=== PATIENT | male | born 1980 | race African-American/Black ===

== ENCOUNTER 2024-04-05 14:12 | Outpatient (AMB) | payer BC, SELFPAY ==
--- NOTE | 2024-04-05 14:23 | A.OFFPC_ITS ---
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 Is supposed to be on blood pressure medicine but he tries not to take it. 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 The patient has a history of essential hypertension, which was diagnosed previously and is currently managed with a combination of lisinopril, hydrochlorothiazide. Blood pressure readings are currently stable, with today?s reading at 126/86 mmHg. He states that he has had a workup for hypertension including renal ultrasounds. He states that this was done at [facility]. He is go ing to request records. He has chronic gastroesophageal reflux disease (GERD), which has persisted for approximately 10 years. The reflux had been symptomatic but recently improved by avoiding spicy and acidic foods. His GERD was associated with a previous Helicobacter pylori infection diagnosed this past summer, treated with a triple therapy regimen of antibiotics and proton pump inhibitors. Despite treatment, confirmation of eradication post-therapy was not obtained. He still experiences symptoms. Additionally, the patient reports a history of A hypopigmented, flat rash on his back, chest and arms particularly noted when sweating. He has not undergone recent dermatological treatment for this condition. 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 - Lives in a home environment and has mo cosme recently. - Diet includes efforts to avoid process ed and fast food; limited detailed discussion about nutritional intake. - No use of alcohol, tobacco, or illicit drugs was mentioned. - Reports attending dental appointments regularly. 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 - Gastrointestinal: Reports occasional b elching with movement improvement. - Musculoskeletal: Reports gas-associate d pain but no other issues. - Neurological: Denies headaches or othe r symptoms. Physical Exam General: Cooperative, healthy appearing, comfortable, no acute distress and well developed Orientation: Patient oriented x3 Limitations: No limitations Head: Normal to inspection Ears: Hearing grossly normal bilaterally Nose: Normal external nose present Face and sinus: Normal facial exam Eyes: Appearance normal, both eyes and all related structures Neck: Normal visual inspection and Yes full ROM Respiratory: Normal respiratory effort and able to speak in complete sentences. Clear to auscultation bilaterally Cardiovascular: Regular rate and rhythm. Normal S1 and S2 GI: Normal to inspection. Soft to palpation and nontender. Reports history of acid reflux and belching, no constipation or diarrhea. Skin: Flat, hyperpigmented lesion noted throughout the back, upper chest and upper arms. Neuro: Patient oriented x3 Extremities: Normal to inspection Results - Prior breath test positive for Helicob acter pylori (details not provided on eradication confirmation). Plan - Essential Hypertension: Continue [facility] antihypertensive regimen including lisinopril and hydrochlorothiazide. Order lab tests to assess kidney function and cholesterol levels. - Gastroesophageal Reflux Disease GERD): Refer to gastroenterology for further evaluation. Recommend obtaining a stool antigen test to confirm eradication of Helicobacter pylori. Continue dietary modifications to avoid triggers such as spicy and acidic foods. - Tinea Versicolor: Prescribe ketoconazo le shampoo to be used topically for the management of skin discoloration. Consider dermatology consult if not responsive to initial treatment. Patient was informed and verbally consented to the use of an ambient scribe for clinic note documentation during this visit. Discussion Notes I discussed the current management plan with the patient. For hypertension, I emphasized the importance of ongoing medication adherence and monitoring blood pressure. We discussed the potential need for a renal ultrasound to rule out secondary causes. Regarding GERD and the previous Helicobacter pylori treatment, I explained the significance of confirming eradication and referred him to a GI specialist for further evaluation. We discussed options for managing tinea versicolor, including the use of ketoconazole shampoo, and I provided education on proper application. I advised the patient to follow up with dermatology if the condition persists. Patient Instructions - Continue taking prescribed blood press ure medication as directed. - Adhere to dietary modifications to man age GERD symptoms. - Use ketoconazole shampoo as instructed for tinea versicolor. - Attend lab work at convenience for com prehensive evaluation. - Follow up with gastroenterology and de rmatology as scheduled. - Maintain regular appointments for cont inued monitoring and management. - Contact the office for any new symptom s or concerns prior to the next scheduled visit. [facility] Surgical History (Updated 04/05/24 @ 14:29 by Mindy Colorado CMA) No pertinent past surgical history Social History (Updated 04/05/24 @ 14:30 by Mindy Colorado CMA) Housing: House Alcohol intake: former Patient Tobacco Use Status: Former Tobacco user Years Smoked: unknown. 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 1. Little interest or pleasure in doing things: several days 2. Feeling down, depressed, or hopeless: not at all 3. Trouble falling or staying asleep, or sleeping too much: not at all 4. Feeling tired or having little energy: not at all 5. Poor appetite or overeating: not at all 6. Feeling bad about yourself - or that you are a failure or have let yourself or your family down: not at all 7. Trouble concentrating on things, such as reading the newspaper or watching television: not at all 8. Moving or speaking so slowly that other people could have noticed. Or the opposite - being so fidgety or restless that you have been moving around a lot more than usual: not at all 9. Thoughts that you would be better off or of hurting yourself in some way: not at all Total score: 1 Depression Screening Interpretation: Negative Depression Screening Done: Yes 13186 - PHQ-9 Billing: Yes Source: Developed by Drs. Homar Arevalo, Rosa M Celaya, Kris Contreras and colleagues, with an educational homar from [employer]. Thrive Questionnaire Date Thrive assessed: 04/05/24 I am a: Patient What is your living situation today?: I choose not to answer this question Within the past 12 months, did the food you bought not last and you didn't have the money to get more?: I choose not to answer this question Within the past 12 months, did you worry whether your food would run out before you got money to buy more?: I choose not to answer this question Do you have trouble paying for medicines?: No Do you have trouble getting transportation to medical appointments?: No Do you have trouble paying your heating and electricity bill?: No Do you have trouble taking care of your child, family member or friend?: No Do you have trouble with day-to-day activities such as bathing, preparing meals, shopping, managing finances, etc.?: No Are you currently unemployed and looking for a job?: No Are you interested in more education?: No Please select the resources that you would like help with: None Currently or been in a relationship where the following occur: I choose not to answer THRIVE Score: 0 AUDIT C Alcohol Use Questionnaire (AUDIT-C) 1. How often do you have a drink containing alcohol?: Never Total Score: 0 ALAINA-7 AMB Questionnaire ALAINA-7 Date ALAINA - 7 assessed: 04/05/24 Feeling nervous, anxious, or on edge: 0 = Not at all Not being able to stop or control worryin = Not at all Worrying too much about different things: 0 = Not at all Trouble relaxin = Not at all Being so restless that it is hard to sit still: 0 = Not at all Becoming easily annoyed or irritable: 0 = Not at all Feeling afraid as if something awful might happen: 0 = Not at all Total ALAINA-7 score (0-4 normal; 5-9 mild; 10-14 moderate; 15-21 severe): 0 Source: Developed by Drs. Homar Arevalo, Rosa M Celaya, Kris Contreras and colleagues, with an educational homar from [employer]. ALAINA-7 Assessment Billing ALAINA-7 Assessment Tool: ALAINA-7 Assessment 20954 Physical exam (Primary Care) Vital Signs: Last Vital Signs Pulse 80 04/05/24 14:30 BP 126/86 04/05/24 14:30 Pulse Ox 99 04/05/24 14:30 Oxygen Delivery Method Room Air 12/04/24 14:30 BMI result Body Mass Index 25.9 Tobacco/Smoking Status: Tobacco use Status Tobacco use date assessed 04/05/24 04/05/24 14:32 Patient Tobacco Use Status Former Tobacco user 04/05/24 14:32 e-Cigarette/Vaping Use Never Used 04/05/24 14:32 PHQ-9: PHQ-9 Score PHQ-9: Total score 1 04/05/24 14:47 Depression Screening Interpretation: Negative Thrive Assessment: Date of Thrive Assessment Date Thrive assessed 04/05/24 04/05/24 14:32 Currently or been in a relationship where the following occur: I choose not to answer Coding Level of Care Code New Pt Level 4 (72557) Complex EM visit Add On G2211 Diagnoses HTN (hypertension) I10 GERD (gastroesophageal reflux disease) K21.9 Tinea versicolor B36.0 Additional Codes ALAINA-7 Assessment Billing - ALAINA-7 Assessment Tool: ALAINA-7 Assessment 12317 ([id number]) PHQ-9 - 18435 - PHQ-9 Billing: Yes ([id number]) Assessment & Plan Assessment & Plan (1) HTN (hypertension): Code(s): I10 - Essential (primary) hypertension Category: Medical (2) GERD (gastroesophageal reflux disease): Code(s): K21.9 - Gastro-esophageal reflux disease without esophagitis Category: Medical (3) Tinea versicolor: Code(s): B36.0 - Pityriasis versicolor Category: Medical Plan . Orders: Orders Complete Blood Count Auto Diff Today I10 - Essential (primary) hypertension TSH reflex Free T4 Today I10 - Essential (primary) hypertension Lipid Panel Today I10 - Essential (primary) hypertension Comprehensive [place]. Panel Fast Today I10 - Essential (primary) hypertension UA CC w/rflx Micro + Cult Today I10 - Essential (primary) hypertension, Z13.220 - Encounter for screening for lipoid disorders H pylori Ag Stool Today K21.9 - Gastro-esophageal reflux disease without esophagitis Referrals Dermatology Referral B36.0 - Pityriasis versicolor Gastroenterology Referral A04.8 - Other specified bacterial intestinal infections, K21.9 - Gastro-esophageal reflux disease without esophagitis Medications: New ketoconazole 1% lather on for 5 minutes then rinse 1 appl topical Q3D 200 mL 3RF lisinopril-hydrochlorothiazide 10-12.5 mg 1 tab PO DAILY 90 tabs 3RF
[2024-04-05 14:30] VITALS: BP 126/86; PULSE 80; O2SAT 99; BMI 25.9
== END 2024-04-05 15:02 | disposition home or self-care (01) ==
PROVIDERS: PCP Physician Assistant; Visit Provider Physician Assistant
DX: I10 Essential (primary) hypertension (principal); K21.9 Gastro-esophageal reflux disease without esophagitis; B36.0 Pityriasis versicolor

== ENCOUNTER → 2024-04-05 14:12 | Outpatient (BNVA) | payer BC, SELFPAY | PROVIDERS: Visit Provider Physician Assistant | DX: I10 Essential (primary) hypertension (principal); K21.9 Gastro-esophageal reflux disease without esophagitis; B36.0 Pityriasis versicolor; Z79.899 Other long term (current) drug therapy | CPT/HCPCS: 96127 ==

== ENCOUNTER 2024-04-28 13:29 | Outpatient (REF) | payer BC, SELFPAY ==
[2024-04-28 17:31] LABS: MANUAL DIFF FLAG NO
[2024-04-28 17:37] LABS: Basophils Absolute Auto 0.1 X10*3/uL (0.0-0.2); Basophils Percent Auto 0.7 % (0-2); Eosinophils Absolute Auto 0.1 X10*3/uL (0.0-0.4); Eosinophils Percent Auto 1.3 % (0-4); Hematocrit 44.4 % (42.0-52.0); Hemoglobin 14.6 g/dl (14.0-18.0); Imm Gran Abs Auto 0.06 X10*3/uL (0.00-0.03); Imm Gran Pct Auto 0.9 % (0.0-0.4); Lymphocytes Percent Auto 30.2 % (20-40); Mean Corpuscular HGB Conc 32.9 g/dl (31.0-36.0); Mean Corpuscular Hemoglobin 32.2 pg (27.0-33.0); Mean Corpuscular Volume 97.8 fL (80.0-98.0); Mean Platelet Volume 10.4 fL (9.4-12.4); Monocytes Absolute Auto 0.6 X10*3/uL (0.1-1.2); Monocytes Percent Auto 8.4 % (2-11); Neutrophils Absolute Auto 3.9 x10*3/uL (2.0-8.3); Neutrophils Percent Auto 58.5 % (45-73); Platelet Count 227 X10*3/uL (160-400); Red Blood Count 4.54 X10*6/uL (4.60-5.80); Red Cell Distribution Width 12.1 % (11.0-16.0); White Blood Count 6.7 X10*3/uL (4.8-10.8)
[2024-04-28 18:00] LABS: Appearance Urine Turbid; Color Urine Yellow; Glucose Urine UA Negative (Negative); Leukocyte Esterase Urine Negative (Negative); Nitrite Urine Negative (Negative); UMIC TRIGGER UACC YES; Urine Blood Trace (Negative); Urine Ketones Negative (Negative); Urine Protein Negative (Neg-Trace)
[2024-04-28 18:03] LABS: Bacteria Urine None Seen (None Seen); Hyaline Casts Urine 0-2 /LPF (0-2); RBC Urine 0-2 /HPF (0-2); Squamous Epithelial Cell Urine 0-2 /HPF (0-2); WBC Urine 0-5 /HPF (0-5)
[2024-04-28 18:06] LABS: Alanine Aminotransferase 45 U/L (0-40); Albumin Level 4.2 g/dL (3.5-5.0); Alkaline Phosphatase 62 U/L (39-117); Anion Gap 13 (12-20); Aspartate Amino Transferase 45 U/L (5-37); Bilirubin Total 0.9 mg/dL (0.0-1.0); Blood Urea Nitrogen 13 mg/dL (9-16); Calcium 9.3 mg/dL (8.4-10.2); Carbon Dioxide 27 mmol/L (22-29); Chloride 106 mmol/L (96-108); Cholesterol 211 mg/dL (<200); Estimated Glomerular Filt Rate > 60; Glucose Fasting 99 mg/dL (60-99); HDL Cholesterol 42 mg/dL (>40); LDL Cholesterol Calculated 150 mg/dL (<100); Potassium 4.1 mmol/L (3.3-5.1); Sodium 142 mmol/L (135-145); Total Protein 7.3 g/dL (6.5-8.0); Triglycerides 95 mg/dL (<150)
[2024-04-28 18:26] LABS: TSH reflex Free T4 1.49 uIU/mL (0.32-4.0)
== END 2024-04-28 13:30 | disposition home or self-care (01) ==
LOC: HO.WFDLDS 13:29
PROVIDERS: Visit Provider Physician Assistant
DX: I10 Essential (primary) hypertension (principal)
CPT/HCPCS: 36415; 80053; 80061; 81001; 84443; 85025

== ENCOUNTER 2024-05-01 15:01 | Outpatient (REF) | payer BC, SELFPAY | END 2024-05-01 15:02 | disposition home or self-care (01) | LOC: HO.LNP 15:01 | PROVIDERS: Visit Provider Physician Assistant | DX: K21.9 Gastro-esophageal reflux disease without esophagitis (principal) | CPT/HCPCS: 87338 ==

== ENCOUNTER 2024-05-31 10:41 | Outpatient (REF) | payer BC, SELFPAY ==
[2024-05-31 14:40] LABS: Appearance Urine Clear; Color Urine Yellow; Glucose Urine UA Negative (Negative); Leukocyte Esterase Urine Negative (Negative); Nitrite Urine Negative (Negative); Urine Blood Negative (Negative); Urine Ketones Negative (Negative); Urine Protein Negative (Neg-Trace)
== END 2024-05-31 10:42 | disposition home or self-care (01) ==
LOC: HO.WFDLDS 10:41
PROVIDERS: Visit Provider Physician Assistant
DX: Z13.220 Encounter for screening for lipoid disorders (principal); I10 Essential (primary) hypertension
CPT/HCPCS: 81003

== ENCOUNTER → 2024-06-07 10:36 | Outpatient (BNVA) | payer BC, SELFPAY | PROVIDERS: PCP Physician Assistant; Visit Provider Physician Assistant | DX: I10 Essential (primary) hypertension (principal); K21.9 Gastro-esophageal reflux disease without esophagitis; R79.89 Other specified abnormal findings of blood chemistry; R07.89 Other chest pain; R13.10 Dysphagia, unspecified; R94.31 Abnormal electrocardiogram [ECG] [EKG]; Z79.899 Other long term (current) drug therapy | CPT/HCPCS: 93005; 96127 ==

== ENCOUNTER 2024-06-07 12:33 | Outpatient (REF) | payer BC, SELFPAY ==
--- OUTSIDE RECORDS SUMMARY | 2024-06-07 13:57 | XMS_ITS | Clinical Summary ---
Author Organization [facility] Address [address] [place] [address] Care Team Providers Care Core Analyst Name Role Phone Unavailable Primary Care Provider Unavailabl e Social History Tobacco Use Types Packs/Day Years Used Date Smoking Tobacco: Former Smokeless Tobacco: Never Alcohol Use Standard Drinks/Week Comments Yes 0 (1 standard drink = 0.6 oz pur e alcohol) Sex and Gender Information Value Date Recorded Sex Assigned at Not on file Gender Identity Not on file Sexual Orientation Not on file Obstetrics History Last Filed Vital Signs Vital Sign Reading Time Taken Comments Blood Pressure 154/94 09/02/2021 3:25 PM EDT Pulse 71 09/02/2021 3:25 PM EDT Temperature - - Respiratory Rate - - Oxygen Saturation - - Inhaled Oxygen Concentration - - Weight 77.3 kg (170 lb 6.4 oz) 09/02/2021 3:25 P M EDT Height 165.1 cm (5' 5 ) 09/02/2021 3:25 PM EDT Body Mass Index 28.36 09/02/2021 3:25 PM EDT Plan of Treatment Health Maintenance Due Date Last Done Comments DTaP,Tdap,and Td Vaccines (1 - Tdap) 2001 Hepatitis B Vaccines (1 of 3 - 19+ 3-dose series) 2001 Cholesterol Screening (Lipid Panel) 04/05/2022 Depression Screening 04/05/2022 HIV Screening 04/05/2022 Hepatitis C Screening 04/05/2022 Social Influencers of Health Screening 04/05/2022 COVID-19 Vaccine ( - 2023-2 5 season) 2024 Influenza Vaccine (#1) 2024 HIB Vaccines Aged Out No longer eligi ble based on patient's age to complete this topic HPV Vaccines Aged Out No longer eligi ble based on patient's age to complete this topic Hepatitis A Vaccines Aged Out No long er eligible based on patient's age to complete this topic IPV Vaccines Aged Out No longer eligi ble based on patient's age to complete this topic MMR Vaccines Aged Out No longer eligi ble based on patient's age to complete this topic Meningococcal ACWY Vaccine Aged Out N o longer eligible based on patient's age to complete this topic Pneumococcal Vaccine: Pediat rics (0 to 5 Years) and At-Risk Patients (6 to 64 Years) Aged Out No longer eligible b ased on patient's age to complete this topic RSV Immunization Patients Un devi 20 months Aged Out No longer eligible b ased on patient's age to complete this topic Varicella Vaccines Aged Out No longer eligible based on patient's age to complete this topic
--- OUTSIDE RECORDS SUMMARY | 2024-06-07 13:57 | XMS_ITS | Clinical Summary ---
Author Organization [facility] Address [address] [place] [address] Care Team Providers Care Employment Security Officer Name Role Phone Ben Grant MD Primary Care Provider [phone] Source Comments PLEASE NOTE, if this patient is a minor, it may be UNLAWFUL to discuss sensitive information that is contained in these records (such as FAMILY PLANNING, MENTAL HEALTH or SUBSTANCE ABUSE) with the minor patient's parent or other person without the patient's specific authorization.[facility] Allergies No known active allergies Medications miscellaneous medical supply miscIndications: Lumbar pain by miscellaneous route once daily Back brace to be worn daily x99 years 1 Each 05/27/19 22 Active naproxen (NAPROSYN) 500 mg tabletIndication s:Lumbar pain Take 1 Tablet by mouth 2 (two) times daily with a meal 30 Tablet 1 05/27/19 22 Active lidocaine (LIDODERM) 5 % patchIndications :Chronic midline low back pain without sciatica Place 1 Patch onto the skin once daily (every 24 hours) Apply 1 patch to the affected area for a maximum of 12 hours, followed by removal for 12 hours. 90 Patch 1 05/06/19 24 Active atorvastatin (LIPITOR) 40 mg tabletIndication s:Elevated low density lipoprotein (LDL) cholesterol level Take 1 Tablet by mouth nightly at bedtime 90 Tablet 1 11/16/19 24 Active benzonatate (TESSALON) 200 mg capsuleIndicatio ns:Other cough Take 1 Capsule by mouth 3 (three) times daily as needed for cough 60 Capsule 1 11/26/19 24 Active lisinopriL-hydro chlorothiazide 10-12.5 mg per tabletIndication s:Primary hypertension Take 1 Tablet by mouth once daily 90 Tablet 1 12/20/19 24 Active omeprazole (PRILOSEC) [address] capsuleIndicatio ns:Gastroesophag eal reflux disease without esophagitis TAKE 1 CAPSULE BY MOUTH ONCE DAILY IN THE MORNING BEFORE BREAKFAST 90 Capsule 02/09/20 24 Active Active Problems Problem Noted Date Diagnosed Date Chronic midline low back pain without sciatica 0 11/15/2023 Overview (11/15/2023): Sees Ortho Positive H. pylori test 08/17/2023 Overview (08/17/2023): Treated with Omeprazole,Amoxicillin and Metronidazole for 14 day on 08/17/2023 Primary hypertension 01/25/2023 Elevated low density lipoprotein (LDL) cholester ol level 11/01/2018 Gastroesophageal reflux disease without esophagi tis 08/18/2017 Immunizations Name Administration Dates Next Due PPD 08/18/2017 Family History Medical History Relation Name Comments Hypertension Mother Relation Name Status Comments Father Alive Mother Alive Social History Tobacco Use Types Packs/Day Years Used Date Smoking Tobacco: Former Cigarettes Passive Smoke Exposure: Never Smokeless Tobacco: Never Tobacco Cessation:Counseling Given: Yes Alcohol Use Standard Drinks/Week Comments Yes 0 (1 standard drink = 0.6 oz pur e alcohol) soically Social Connections Answer Date Recorded Connectedness 0 01/29/2021 Financial Resource Strain Answer Date R ecorded Financial Resource Strain 0 2020 Stress Answer Date Recorded Stress 0 01/29/2021 Physical Activity Answer Date Recorded Physical Activity 0 12/25/2018 Food Insecurity Answer Date Recorded Food 0 01/29/2021 Transportation Needs Answer Date Record ed Transportation 0 01/29/2021 Housing Stability Answer Date Recorded Housing 0 01/29/2021 Safety and Environment Answer Date Teodoro rded Safety 0 01/29/2021 Utilities Answer Date Recorded Utilities 0 01/29/2021 Employment Answer Date Recorded Employment 0 12/25/2018 Sex and Gender Information Value Date Recorded Sex Assigned at Male 08/18/2017 10:00 AM PDT Legal Sex Male 11:08 AM PST Gender Identity Male 08/18/2017 10:00 AM PDT Sexual Orientation Straight 08/18/2017 10 :00 AM PDT Last Filed Vital Signs Vital Sign Reading Time Taken Comments Blood Pressure 116/78 11/26/2023 10:55 AM EDT Pulse 78 11/26/2023 10:55 AM EDT Temperature 36.8 ??C (98.3 ??F) 11/26/2023 10:55 AM E DT Respiratory Rate 16 11/26/2023 10:55 AM EDT Oxygen Saturation 97% 11/26/2023 10:55 AM EDT Inhaled Oxygen Concentration - - Weight 75.8 kg (167 lb) 11/26/2023 10:55 AM EDT Height 170.2 cm (5' 7 ) 11/26/2023 10:55 AM EDT Body Mass Index 26.16 11/26/2023 10:55 AM EDT Plan of Treatment Health Maintenance Due Date Last Done Comments Imm-Hepatitis B (1 of 3 - 19 + 3-dose series) 2001 [id number] () 01/02/2024 Imm-Influenza (#1) 2024 Alcohol and Drug Screen 05/03/2024 05/06/19 24, 12/14/2022, 05/23/2021, Additional history exists Depression Annual Screen 05/03/2024 05/06/2023, 08/01 Lipid Screening 11/14/2024 11/15/2023, 08/01, 05/06/2023, Additional history exists Annual Preventive Care Visit 11/25/2024, 02/25/2022, 01/29/2021, Additional history exists Tobacco Screening 11/25/2024 11/26/2023 Diabetes Screening 11/25/2026 11/26/2023, 0 11/26/2023, 01/29/2021, Additional history exists HIV Screening Completed 11/18/2017 Hepatitis C Screening Completed 01/29/2021 Imm-DTaP/Tdap/Td Discontinued Procedures Procedure Name Priority Date/Time Associated Diagnosis Comments COMPREHENSIVE METABOLIC PANEL Routine 11/26/2023 11:19 AM EDT Routine general medical examination at a health care facility Elevated low density lipoprotein (LDL) cholesterol level Gastroesophageal reflux disease without esophagitis LIPIDS W RFLX TO DIRECT LDL Routine 11/15/2023 10:25 AM EDT Elevated low density lipoprotein (LDL) cholesterol level HEPATITIS C AB W/RFLX HCV RNA, QT, RT PCR Routine 01/29/2021 9:21 AM EDT Health care maintenance ANTIBODY HIV-1&HIV-2 SINGLE RESULT Routine 11/18/2017 1:41 PM EDT Health care maintenance from Last 3 Months or Most Recently Relevant to Health Maintenance Results * COMPREHENSIVE METABOLIC PANEL (11/26/2023 11:19 AM EDT) GLUCOSE 92 65 - 99 mg/dL [facility] Comment: ?Fasting reference interval UREA NITROGEN (BUN) 12 7 - 25 mg/dL [facility] CREATININE (blood) 1.10 0.60 - 1.29 mg/dL [facility] EGFR 86 > OR = 60 mL/min/1. 73m2 [facility] BUN/CREATININE RATIO SEE NOTE: [facility] Comment: ?? Not Reported: BUN and Creatinine are within ?? reference range. ? SODIUM 139 135 - 146 mmol/L [employer] [facility] POTASSIUM 4.1 3.5 - 5.3 mmol/L [facility] CHLORIDE 103 98 - 110 mmol/L [facility] CARBON DIOXIDE 30 20 - 32 mmol/L [employer] [facility] CALCIUM 9.3 8.6 - 10.3 mg/dL [employer] [facility] PROTEIN, TOTAL 7.2 6.1 - 8.1 g/dL [employer] [facility] ALBUMIN 4.3 3.6 - 5.1 g/dL [facility] GLOBULIN 2.9 1.9 - 3.7 g/dL (calc) [employer] [facility] ALBUMIN/GLOBULI N RATIO 1.5 1.0 - 2.5 (calc) [facility] BILIRUBIN, TOTAL 1.1 0.2 - 1.2 mg/dL [facility] ALKALINE PHOSPHATASE 75 36 - 130 U/L [facility] AST 27 10 - 40 U/L [facility] ALT 34 9 - 46 U/L [facility] Blood Blood / Unknown 11/26/2023 1 1:19 AM EDT 11/26/2023 11:19 AM EDT Ben Grant MD LAB - BLOOD DRAW Edited Result - Final Performing Organization Address [facility]/ZIP Co de Phone Number [employer] [address] [address], [employer] [address] [address] * (ABNORMAL) LIPIDS W RFLX TO DIRECT LDL (11/15/2023 10:25 AM EDT) CHOLESTEROL, TOTAL 200(H) <200 mg/dL [employer] [facility] HDL CHOLESTEROL 46 > OR = 40 mg/dL [employer] [facility] TRIGLYCERIDES 76 <150 mg/dL [employer] [facility] LDL-CHOLESTEROL 137(H) 99 mg/dL (calc) [employer] [facility] Comment: Reference range: <100 Desirable range <100 mg/dL for primary prevention; ?? <70 mg/dL for patients with CHD or diabetic patients with > or = 2 CHD risk factors. LDL-C is now calculated using the David-Cassandra calculation, which is a validated novel method providing better accuracy than the Friedewald equation in the estimation of LDL-C. David SS et al. SIL. 2013;310(19): 9345-7771 (http://education.[employer]/faq/GYA271) CHOL/HDLC RATIO 4.3 <5.0 (calc) [employer] [facility] NON-HDL CHOLESTEROL 154(H) <130 mg/dL (calc) [employer] [facility] Comment: For patients with diabetes plus 1 major ASCVD risk factor, treating to a non-HDL-C goal of <100 mg/dL (LDL-C of <70 mg/dL) is considered a therapeutic option. Blood Blood / Unknown 11/15/2023 1 0:25 AM EDT 11/15/2023 10:28 AM EDT Narrative [employer] [facility] - 11/16/2023 4:26 AM EDT FASTING:YES us Ben Grant MD LAB - BLOOD DRAW Edited Result - Final Performing Organization Address City/[facility]/ZIP Co de Phone Number [employer] [address] [place] [address], [employer] [facility] [address] [place] [address] * HEPATITIS C AB W/RFLX HCV RNA, QT, RT PCR (01/29/2021 9:21 AM EDT) Pathologist [facility] HEPATITIS C ANTIBODY NON-REACT RADHA NON-REACT RADHA [facility] SIGNAL TO CUT-OFF 0.01 <1.00 [facility] Comment: HCV antibody was non-reactive. There is no laboratory evidence of HCV infection. In most cases, no further action is required. However, if recent HCV exposure is suspected, a test for HCV RNA (test code 17948) is suggested. For additional information please refer to http://education.[employer]/faq/POO89j9 (This link is being provided for informational/ educational purposes only.) Blood Blood / Unknown 01/29/2021 9 :21 AM EDT 01/29/2021 9:21 AM EDT Narrative [facility] - 01/30/2021 12:19 AM EDT FASTING:YES Ben Grant MD LAB - BLOOD DRAW Edited Result - Final [facility] [address] [address], [employer] [address] [place] [address],[place] [address] * HIV-1 & HIV-2 ANTIBODIES (11/18/2017 1:41 PM EDT) [facility] HIV 1 AND 2 ANTIBODY SCREEN NEGATIVE NEGATIVE [facility] Comment: This assay is a 4th generation assay allowing for earlier detection of HIV infection by detecting the presence of the HIV-1 p24 antigen as well as the traditional antibodies to HIV type 1 (including group O) and type 2. ??Use of a 4th generation assay is the current CDC recommendation for HIV screening. Blood specimen (specimen) Blood / Unknown 11/18/2017 1:41 PM EDT 11/18/2017 1:46 PM EDT N[facility]ative [facility] - 11/18/2017 10:[address] [facility] [address] [place] [address] PT ID [id number] ORD# [id number] us Ben Grant MD LAB - BLOOD DRAW Final Result [facility] [address] [place] [address], from Last 3 Months or Most Recently Relevant to Health Maintenance Insurance ADDI CORTEZ/LISA SAN Member Subscriber Plan / Payer (Ef fective 2019-Present) Name:Chintan Moralez Relation to Subscriber:Self Name:Chintan Moralez Payer ID:[id number] Type:Indemnity Address: [address] [address] Care Teams Employment Security Officer Relationship Specialty Start Date End Date Ben Grant MD [address] [place] [address] PCP - General Internal Medicine 07/21/17
[2024-06-07 13:58] LABS: MANUAL DIFF FLAG NO
[2024-06-07 14:05] LABS: Basophils Absolute Auto 0.1 X10*3/uL (0.0-0.2); Basophils Percent Auto 0.8 % (0-2); Eosinophils Absolute Auto 0.1 X10*3/uL (0.0-0.4); Eosinophils Percent Auto 1.7 % (0-4); Hematocrit 45.4 % (42.0-52.0); Imm Gran Abs Auto 0.05 X10*3/uL (0.00-0.03); Imm Gran Pct Auto 0.7 % (0.0-0.4); Lymphocytes Absolute Auto 1.8 X10*3/uL (1.2-4.9); Lymphocytes Percent Auto 25.6 % (20-40); Mean Corpuscular Hemoglobin 31.4 pg (27.0-33.0); Mean Corpuscular Volume 95.2 fL (80.0-98.0); Mean Platelet Volume 10.2 fL (9.4-12.4); Monocytes Absolute Auto 0.7 X10*3/uL (0.1-1.2); Monocytes Percent Auto 9.8 % (2-11); Neutrophils Absolute Auto 4.4 x10*3/uL (2.0-8.3); Neutrophils Percent Auto 61.4 % (45-73); Platelet Count 235 X10*3/uL (160-400); Red Blood Count 4.77 X10*6/uL (4.60-5.80); Red Cell Distribution Width 11.9 % (11.0-16.0); White Blood Count 7.1 X10*3/uL (4.8-10.8)
[2024-06-07 14:26] LABS: Alanine Aminotransferase 40 U/L (0-40); Albumin Level 4.2 g/dL (3.5-5.0); Alkaline Phosphatase 80 U/L (39-117); Anion Gap 8 (12-20); Aspartate Amino Transferase 41 U/L (5-37); Bilirubin Direct 0.3 mg/dL (0.0-0.5); Bilirubin Total 0.9 mg/dL (0.0-1.0); Blood Urea Nitrogen 11 mg/dL (9-16); Calcium 9.4 mg/dL (8.4-10.2); Carbon Dioxide 30 mmol/L (22-29); Chloride 104 mmol/L (96-108); Estimated Glomerular Filt Rate > 60; Glucose Random 99 mg/dL (60-115); Potassium 4.5 mmol/L (3.3-5.1); Sodium 137 mmol/L (135-145); Total Protein 7.8 g/dL (6.5-8.0)
[2024-06-07 14:30] LABS: Troponin-I High Sensitivity < 2.7 ng/L (<3.5-35.0)
[2024-06-07 14:37] LABS: Gamma Glutamyl Transpeptidase 53 U/L (11-51)
[2024-06-08 07:34] LABS: Hepatitis B Surface Antigen Negative (Negative); ~Hepatitis C Antibody Nonreactive (Nonreactive)
== END 2024-06-07 12:34 | disposition home or self-care (01) ==
LOC: HO.WFDLDS 12:33
PROVIDERS: Visit Provider Physician Assistant
DX: R79.89 Other specified abnormal findings of blood chemistry (principal); K21.9 Gastro-esophageal reflux disease without esophagitis; I10 Essential (primary) hypertension; R07.89 Other chest pain; R13.10 Dysphagia, unspecified; R94.31 Abnormal electrocardiogram [ECG] [EKG]
CPT/HCPCS: 36415; 80048; 80076; 82977; 84484; 85025; 86803; 87340

== ENCOUNTER 2024-06-16 10:53 | Outpatient (REF) | payer BC, SELFPAY ==
--- NOTE | ~2024-06-16 | US_ITS ---
CLINICAL HISTORY: K21.9 - Gastro-esophageal reflux disease without esophagitis US abdomen complete Comparison: None Findings: The visualized pancreas is normal. The aorta and inferior vena cava are normal caliber. The appearance of the liver suggests fatty infiltration. There are circumscribed hyperechoic masses measuring 1.3 x 1.1 x 1.1 cm and 0.4 x 0.4 x 0.4 cm, possible hemangiomata. There is no intrahepatic bile duct dilatation. The common duct is 2.0 mm in diameter. The gallbladder is normal. There is no sonographic Evans sign. The main portal vein is antegrade. The right kidney is 10.0 cm in length. The left kidney is 10.4 cm in length. The spleen is normal. No ascites. IMPRESSION: 1. Hepatic steatosis with hepatic lesions, possible hemangiomas. Recommend dedicated hepatic imaging with either MRI or CT if patient can safely receive intravenous contrast, to further characterize. This document has been electronically signed by: Robert Collier MD on 06/17/2024 08:36:54
--- OUTSIDE RECORDS SUMMARY | 2024-06-16 11:50 | XMS_ITS | Clinical Summary ---
Author Organization [facility] Address [address] [place] [address] Care Team Providers Care Brazing Machine Setter Name Role Phone Ben Grant MD Primary Care Provider [phone] Source Comments PLEASE NOTE, if this patient [...] 3 - 19 + 3-dose series) 2001 [id number] () 01/02/2024 Imm-Influenza (#1) 2024 Alcohol and [...] EDT) GLUCOSE 92 65 - 99 mg/dL [facility] Comment: ?Fasting reference interval UREA NITROGEN (BUN) 12 7 - 25 mg/dL [facility] CREATININE (blood) 1.10 0.60 - 1.29 mg/dL [facility] EGFR 86 > OR = 60 mL/min/1. 73m2 [facility] BUN/CREATININE RATIO SEE NOTE: [facility] Comment: ?? Not Reported: BUN and Creatinine are within ?? reference range. ? SODIUM 139 135 - 146 mmol/L [employer] [facility] POTASSIUM 4.1 3.5 - 5.3 mmol/L [facility] CHLORIDE 103 98 - 110 mmol/L [facility] CARBON DIOXIDE 30 20 - 32 mmol/L [employer] [facility] CALCIUM 9.3 8.6 - 10.3 mg/dL [employer] [facility] PROTEIN, TOTAL 7.2 6.1 - 8.1 g/dL [employer] [facility] ALBUMIN 4.3 3.6 - 5.1 g/dL [facility] GLOBULIN 2.9 1.9 - 3.7 g/dL (calc) [employer] [facility] ALBUMIN/GLOBULI N RATIO 1.5 1.0 - 2.5 (calc) [facility] BILIRUBIN, TOTAL 1.1 0.2 - 1.2 mg/dL [facility] ALKALINE PHOSPHATASE 75 36 - 130 U/L [facility] AST 27 10 - 40 U/L [facility] ALT 34 9 - 46 U/L [facility] Blood Blood / Unknown 11/26/2023 1 1:19 AM EDT 11/26/2023 11:19 AM EDT Ben Grant MD LAB - BLOOD DRAW Edited Result - Final Performing Organization Address [facility]/ZIP Co de Phone Number [employer] [address] [address], [employer] [address] [address] * (ABNORMAL) LIPIDS W RFLX TO DIRECT LDL (11/15/2023 10:25 AM EDT) CHOLESTEROL, TOTAL 200(H) <200 mg/dL [employer] [facility] HDL CHOLESTEROL 46 > OR = 40 mg/dL [employer] [facility] TRIGLYCERIDES 76 <150 mg/dL [employer] [facility] LDL-CHOLESTEROL 137(H) 99 mg/dL (calc) [employer] [facility] Comment: Reference range: <100 Desirable range <100 mg/dL for primary prevention; ?? <70 mg/dL for patients with CHD or diabetic patients with > or = 2 CHD risk factors. LDL-C is now calculated using the David-Cassandra calculation, which is a validated novel method providing better accuracy than the Friedewald equation in the estimation of LDL-C. David SS et al. SIL. 2013;310(19): 2197-9841 (http://education.[employer]/faq/VOX300) CHOL/HDLC RATIO 4.3 <5.0 (calc) [employer] [facility] NON-HDL CHOLESTEROL 154(H) <130 mg/dL (calc) [employer] [facility] Comment: For patients with diabetes plus 1 major ASCVD risk factor, treating to a non-HDL-C goal of <100 mg/dL (LDL-C of <70 mg/dL) is considered a therapeutic option. Blood Blood / Unknown 11/15/2023 1 0:25 AM EDT 11/15/2023 10:28 AM EDT Narrative [employer] [facility] - 11/16/2023 4:26 AM EDT FASTING:YES us Ben Grant MD LAB - BLOOD DRAW Edited Result - Final Performing Organization Address City/[facility]/ZIP Co de Phone Number [employer] [address] [place] [address], [employer] [facility] [address] [place] [address] * HEPATITIS C AB W/RFLX HCV RNA, QT, RT PCR (01/29/2021 9:21 AM EDT) Pathologist [facility] HEPATITIS C ANTIBODY NON-REACT RADHA NON-REACT RADHA [facility] SIGNAL TO CUT-OFF 0.01 <1.00 [employer] Comment: HCV antibody was non-reactive. There is no laboratory evidence of HCV infection. In most cases, no further action is required. However, if recent HCV exposure is suspected, a test for HCV RNA (test code 41895) is suggested. For additional information please refer to http://education.[employer]/faq/ZEY03o6 (This link is being provided for informational/ educational purposes only.) Blood Blood / Unknown 01/29/2021 9 :21 AM EDT 01/29/2021 9:21 AM EDT Narrative [email or web address] - 01/30/2021 12:19 AM EDT FASTING:YES Ben Grant MD LAB - BLOOD DRAW Edited Result - Final [email or web address] [address] [address], [employer] [address] [place] [address],[place] [address] * HIV-1 & HIV-2 ANTIBODIES (11/18/2017 1:41 PM EDT) [facility] HIV 1 AND 2 ANTIBODY SCREEN NEGATIVE NEGATIVE [facility] Comment: This assay is a 4th generation [...] PM EDT 11/18/2017 1:46 PM EDT Narrative [facility] - 11/18/2017 10:16 PM EDT [facility] [employer] [address] [place] [address] PT ID [id number] ORD# [id number] us Ben Grant MD LAB - BLOOD DRAW Final Result [facility] [address] [place] [address], from Last 3 Months or Most Recently Relevant to Health Maintenance Insurance [employer]DI [employer]TE[employer]/LISA SAN Member Subscriber Plan / Payer (Ef fective 2019-Present) Name:Chintan Moralez Relation to Subscriber:Self Name:Chintan Moralez Payer ID:[id number] Type:Indemnity Address: [address] [address] Care Teams Brazing Machine Setter Relationship Specialty Start Date End Date Ben Grant MD [address] [place] [address] PCP - General Internal Medicine 07/21/17
--- OUTSIDE RECORDS SUMMARY | 2024-06-16 11:50 | XMS_ITS | Clinical Summary ---
Author Organization [facility] it Address [address] [place] [address] Care Team Providers Care Survey Researcher Name Role Phone Unavailable Primary Care Provider Unavailabl e Social History Tobacco Use Types Packs/Day Years Used Date Smoking Tobacco: Former Smokeless Tobacco: Never Alcohol Use Standard Drinks/Week Comments Yes 0 (1 standard drink = 0.6 oz pur e alcohol) Sex and Gender Information Value Date Recorded Sex Assigned at Not on file Legal Sex Male 7:24 AM EST Gender Identity Not on file Sexual Orientation [...]
== END 2024-06-16 10:54 | disposition home or self-care (01) ==
LOC: HO.US 10:53
PROVIDERS: PCP Physician Assistant; Visit Provider Physician Assistant
DX: R10.9 Unspecified abdominal pain (principal); R79.89 Other specified abnormal findings of blood chemistry; K21.9 Gastro-esophageal reflux disease without esophagitis
CPT/HCPCS: 76700

== ENCOUNTER → 2024-06-16 10:54 | Outpatient (BNV) | payer BC, SELFPAY | PROVIDERS: PCP Physician Assistant; Visit Provider Specialist | DX: K21.9 Gastro-esophageal reflux disease without esophagitis (principal); R10.9 Unspecified abdominal pain | CPT/HCPCS: 76700 ==

== ENCOUNTER 2024-06-29 08:22 | Outpatient (AMB) | payer BC, SELFPAY ==
--- NOTE | 2024-06-29 08:42 | A.OFFPC_ITS ---
Vital Signs 06/29/24 08:45 Height 5 ft 8 in Weight 174 lb BMI 26.5 BP 126/70 Blood Pressure Location Rt brachial Position Sitting Respiration 14 Pulse 72 Pulse Source Pulse Oximeter Pulse Oximetry (%) 98 Oxygen Delivery Method Room Air Intake Visit Reasons: letter Intake Note: Needs work note. Still having chest pain. Went to [facility] last week. They gave pt muscle relaxer, which is not helping. [employer] Required: No Allergies No Known Allergies Allergy (Verified 06/29/24 08:43) Medication List - Last Reconciled 06/29/24 by Zofia Lyon PA-C ketoconazole 1% 1 appl topical Q3D lisinopril-hydrochlorothiazide 10-12.5 mg 1 tab PO DAILY methocarbamol mg PO Q4H omeprazole 40 mg (2 x 20 mg) PO DAILY Tobacco use date assessed: 06/29/24 Dental Screening Dental Screen Date: 04/05/24 HPI letter HPI Details History of Present Illness The patient is a 43-year-old male presenting with complaints of chronic chest pain. The chest pain has been persistent since approximately the year 1999, and although initially manageable, it has recently increased in severity. The pain is primarily located on the left side of the chest and exacerbates with certain physical movements, such as swinging the arms or twisting the upper body. The patient denies any significant amelioration from muscle relaxants previously prescribed. This musculoskeletal chest pain has been persistent for nearly 25 years. In addition to the aforementioned chest pain, the patient reported a recent episode of hemoptysis. he states that this happened on last Wednesday following a bloody nose. He states that he had a random nosebleed which resolved but then when he coughed he neuro is a little bit of blood in the sputum which prompted him to go to [facility]. This blood-stained cough has since resolved, but it instigated concern warranting evaluation in the emergency room. During the emergency room visit, imaging studies such as chest x-ray were completed Which were normal. He states that he is just very concerned about this chest wall pain especially as he has had an abnormal EKG. Since having the abnormal EKG he has had multiple troponin levels which have been negative. He states that this chest pain is unchanged since the 1999. He does not have any chest pain or shortness a breath with exertion. No palpitations or dizziness. His told him to take time off of work until he gets this worked up to make sure that he is not going to hurt himself. He states that he has a job that requires a lot of heavy lifting. The heavy lifting does exacerbate the pain. The pain is improved with rest. It is also worsened if he pushes on it or twists. At our last visit we did discuss the acid reflux. He states that it was significantly improved with the omeprazole. He did have an abdominal ultrasound which revealed likely liver hemangiomas requiring an MRI. This is booked for next week. He was also referred to GI. He has not yet heard about an appointment time and date. He does somewhat experienced difficulty swallowing food but this is a lot better since starting omeprazole. He is scheduled for a barium swallow. No weight loss. Health Maintenance - Continue current omeprazole. - Scheduled MRI of the abdomen on to evaluate for elevated liver enzymes. - echo has been ordered. Stress test al so ordered. -Contact GI And cardiology for follow up Social History - Employment: The patient mentions ray rns about work-related performance due to his health issues. - The patient is being evaluated for a s hort-term leave of absence from employment for further diagnostic procedures related to his chest pain. Review of Systems - Cardiovascular: Reports chronic left-s ided chest pain exacerbated by movement, such as arm swinging or twisting. - Respiratory: Denies current hemoptysis ; reports past episode. - Neurological: Reports numbness in the right shoulder and upper chest area, particularly when certain positions are assumed or when using a phone. Physical Exam General: Well developed, well nourished, in no acute distress. Appears stated age. Cardiac: RRR, no murmurs Lungs: clear, equal breath sounds Abdomen: soft, nontender, no CVA tenderness Extremities: no edema Neuro: alert, oriented x3, mood appropriate Plan - Proceed with a computed tomography CT) scan of the chest to further investigate the cause of ongoing chest pain and the previous hemoptysis episode. - Schedule a cardiac stress test and ech ocardiogram to assess any potential cardiac abnormalities that may contribute to the chest pain. - Increase the dosage of omeprazole to m anage symptoms of GERD more effectively. - Monitor the results of the upcoming MR I of the abdomen and address any findings related to elevated liver enzymes. - Consider referral to cardiology for co nsultation pending results of current diagnostic evaluations. - Review medical leave documentation and provide necessary work leave notes contingent on the completion of the diagnostic workup. [facility] Surgical History No pertinent past surgical history Social History (Updated 06/07/24 @ 10:47 by Mindy [place] CMA) Housing: House Alcohol intake: former Patient Tobacco Use Status: Former Tobacco user Years Smoked: unknown. 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 Current occupational exposures/hazards: No Cognitive needs: No Hearing needs: No Vision needs: No Questionnaire Thrive Questionnaire Date Thrive assessed: 06/07/24 I am a: Patient What is your living situation today?: I have a steady place to live Within the past 12 months, did the food you bought not last and you didn't have the money to get more?: Often true Within the past 12 months, did you worry whether your food would run out before you got money to buy more?: Often true Do you have trouble paying for medicines?: I choose not to answer this question Do you have trouble getting transportation to medical appointments?: I choose not to answer this question Do you have trouble paying your heating and electricity bill?: I choose not to answer this question Do you have trouble taking care of your child, family member or friend?: I choose not to answer this question Do you have trouble with day-to-day activities such as bathing, preparing meals, shopping, managing finances, etc.?: I choose not to answer this question Are you currently unemployed and looking for a job?: I choose not to answer this question Are you interested in more education?: I choose not to answer this question Please select the resources that you would like help with: None Currently or been in a relationship where the following occur: I choose not to answer THRIVE Score: 2 ALAINA-7 AMB Questionnaire ALAINA-7 Date ALAINA - 7 assessed: 04/05/24 Source: Developed by Drs. Homar Arevalo, Rosa M Celaya, Kris Contreras and colleagues, with an educational homar from [employer] Physical exam (Primary Care) Vital Signs: Last Vital Signs Pulse 72 06/29/24 08:45 Resp 14 06/29/24 08:45 BP 126/70 06/29/24 08:45 Pulse Ox 98 06/29/24 08:45 Oxygen Delivery Method Room Air 06/29/24 08:45 BMI result Body Mass Index 26.5 Tobacco/Smoking Status: Tobacco use Status Tobacco use date assessed 06/29/24 06/29/24 08:45 Patient Tobacco Use Status Former Tobacco user 06/29/24 08:42 e-Cigarette/Vaping Use Never Used 06/29/24 08:42 Thrive Assessment: Date of Thrive Assessment Date Thrive assessed 06/07/24 06/29/24 08:42 Currently or been in a relationship where the following occur: I choose not to answer Results Reviewed Results Reviewed: IMPRESSION: 1. Hepatic steatosis with hepatic lesions, possible hemangiomas. Recommend dedicated hepatic imaging with either MRI or CT if patient can safely receive intravenous contrast, to further characterize. Chest x-ray negative Laboratory Tests 06/07/24 12:35 WBC 7.1 RBC 4.77 Hgb 15.0 Hct 45.4 Plt Count 235 Sodium 137 Potassium 4.5 Chloride 104 Carbon Dioxide 30 H Anion Gap 8 L BUN 11 Creatinine 1.10 Estimated GFR > 60 Random Glucose 99 Calcium 9.4 Total Bilirubin 0.9 Direct Bilirubin 0.3 GGT 53 H AST 41 H ALT 40 Alkaline Phosphatase 80 Troponin I High Sens < 2.7 Total Protein 7.8 Albumin 4.2 Coding Level of Care Code Est Pt Level 4 (24478) Complex EM visit Add On G2211 Diagnoses Atypical chest pain R07.89 HTN (hypertension) I10 GERD (gastroesophageal reflux disease) K21.9 Liver lesion K76.9 Hemoptysis R04.2 Assessment & Plan Assessment & Plan (1) Atypical chest pain: Code(s): R07.89 - Other chest pain Category: Medical (2) HTN (hypertension): Code(s): I10 - Essential (primary) hypertension Category: Medical (3) GERD (gastroesophageal reflux disease): Code(s): K21.9 - Gastro-esophageal reflux disease without esophagitis Category: Medical (4) Liver lesion: Code(s): K76.9 - Liver disease, unspecified Category: Medical (5) Hemoptysis: Code(s): R04.2 - Hemoptysis Category: Medical Plan Our plan: Chest pain- stress test and echo (previously ordered) will be booked, chest ct ordered. they will call you to book. You have also been referred to cardiology Liver hemangiomas- MRI is booked and scheduled for 07.08.24, GI should be calling you to book appointment for this and the elevated liver tests GERD- swallow study booked, continue with omeprazole Print your paperwork and bring to front desk receptionist Orders: Orders CA stress test Today R07.89 - Other chest pain CT chest wo IV con Today I10 - Essential (primary) hypertension, K21.9 - Gastro-esophageal reflux disease without esophagitis, K76.9 - Liver disease, unspecified, R04.2 - Hemoptysis, R07.89 - Other chest pain
[2024-06-29 08:45] VITALS: BP 126/70; PULSE 72; RESP 14; O2SAT 98; BMI 26.5
--- OUTSIDE RECORDS SUMMARY | 2024-06-29 08:47 | XMS_ITS | Encounter Summary ---
Author Organization [facility] Address [address] [place] [address] Care Team Providers Care Safe Deposit Clerk Name Role Phone Zofia Lyon Primary Care Provider [phone] Reason for Visit * Reason Comments Chest Pain CHEST PAIN FOR YEARS Encounter Details Date Type Department Care Team (Late st Contact Info) Description 06/21/2024 7:35 AM EST - 06/21/2024 11:09 AM EST Emergency [facility] Emergency [address] [place] [id number] Kyrie Villalpando, DO [address] [place] [address] Other chest pain (Primary Dx); Acute cough; Epistaxis Discharge Disposition: Home or Self Care Social History Tobacco Use Types Packs/Day Years Used Date Smoking Tobacco: Former Smokeless Tobacco: Never Alcohol Use Standard Drinks/Week Comments Yes 0 (1 standard drink = 0.6 oz pur e alcohol) Sex and Gender Information Value Date Recorded Sex Assigned at Male 06/21/2024 9:01 AM EST Legal Sex Male 7:24 AM EST Gender Identity Male 06/21/2024 9:01 AM EST Sexual Orientation Not on file documented as of this encounter Last Filed Vital Signs Vital Sign Reading Time Taken Comments Blood Pressure 124/79 06/21/2024 8:16 AM EST Pulse 71 06/21/2024 8:16 AM EST Temperature 36.6 ??C (97.9 ??F) 06/21/2024 8:16 AM ES T Respiratory Rate 16 06/21/2024 6:22 AM EST Oxygen Saturation 100% 06/21/2024 8:16 AM EST Inhaled Oxygen Concentration - - Weight 77.1 kg (170 lb) 06/21/2024 2:33 AM EST Height 165.1 cm (5' 5 ) 06/21/2024 2:33 AM EST Body Mass Index 28.29 06/21/2024 2:33 AM EST documented in this encounter Functional Status * Are you deaf or do you have serious difficulty hearing? Answer Date of Assessment Author No 06/21/2024 8:28 AM Stephanie Lee RN * Are you blind or do you have serious difficulty seeing, even when wearing glasses? Answer Date of Assessment Author No 06/21/2024 8:28 AM Stephanie Lee RN * Do you have serious difficulty walking or climbing stairs? Answer Date of Assessment Author No 06/21/2024 8:28 AM Stephanie Lee RN * Do you have serious difficulty dressing or bathing? Answer Date of Assessment Author No 06/21/2024 8:28 AM Stephanie Lee RN * Because of a physical, mental, or emotional condition, do you have serious difficulty doing errandsalone such as visiting the doctor? Answer Date of Assessment Author No 06/21/2024 8:28 AM Stephanie Lee RN documented as of this encounter Mental Status * Because of a physical, mental, or emotional condition, do you have serious difficulty concentrating, remembering, or making decisions? (5 years old or older) Answer Entry Date Author No 06/21/2024 8:28 AM Stephanie Lee RN documented in this encounter Discharge Instructions * Discharge Instructions* Kyrie Villalpando DO - 06/21/2024 10:17 AM EST Stay well-hydrated, drink plenty of fluids. Apply warm moist compresses several times daily. Take Robaxin as directed as needed. Avoid heavy lifting and twisting. Take it easy for a few of days. Followup with your doctor in a few days. Return to the emergency department if you get worse. I hope you feel better soon. A * Attachments The following attachments cannot be sent through Care Everywhere. * Nosebleeds (Estonian) * Cough (Estonian) documented in this encounter Medications at Time of Discharge methocarbamoL (ROBAXIN) 750 mg tablet Take 1 tablet (750 mg total) by mouth 4 (four) times a day for 10 days. 40 each 06/21/2024 07/01/2024 documented as of this encounter Ordered Prescriptions Prescription Sig Dispense Quantity Refills Last Filled Start Date End Date methocarbamoL (ROBAXIN) 750 mg tablet Take 1 tablet (750 mg total) by mouth 4 (four) times a day for 10 days. 40 each 06/21/2024 07/01/2024 documented in this encounter Discharge Disposition Disposition Code Departure Means Destination Comment s Home or Self Senior Care documented in this encounter Progress Notes * Meg Stoll RN - 06/21/2024 2:26 AM EST Pt to ER with complaints of chest pain and coughing up blood that started this AM. Pain resolved onits own. While at work pain started again. When he got home he began to have a nose bleed. Per pt's spouse this has been ongoing for a year. * Kyrie Villalpando DO - 06/21/2024 2:24 AM EST Emergency Medicine Note Patient Name: Chintan Moralez Initial Evaluation: 06/21/2024 : 1980 Patient's PCP: ROSANNA Calabrese Emergency Physician: Kyrie Villalpando DO History of Present Illness Chief Complaint: Chief Complaint Patient presents with Chest Pain CHEST PAIN FOR YEARS HPI: This 43-year-old male with history of hypertension, on lisinopril/HCTZ, presents emergency department complaining of intermittent aching chest pain that he reportedly has had for years . Pain is reportedly worse with movements. In addition, patient has been coughing with some mild phlegm and reportedly some blood in his sputum. No shortness of breath. He also reportedly has had bloody nosesrecently. There is no active bleeding or coughing currently. He denies being on any blood thinners.He denies any known history of TB or any TB risk factors reported. No trauma or injury. No fever, chills or sweats. No other bleeding. No reported black or bloody stools. No abdominal pain. No vomiting or diarrhea. No headache or focal numbness or weakness. He denies tobacco use, but drinks EtOH occasionally. He denies any known history of CAD or thromboembolic disease. He denies any illicit drug use. No other acute complaints. ROS: I have performed a ROS with the pertinent positives and negatives documented in the history ofpresent illness. Previous History Past Medical History: Diagnosis Date Hypertension History reviewed. No pertinent surgical history. Social History Tobacco Use Smoking status: Former Smokeless tobacco: Never Substance Use Topics Alcohol use: Yes Drug use: Not Currently Types: Marijuana/Cannabis No family history on file. has No Known Allergies. No current facility-administered medications on file prior to encounter. No current outpatient medications on file prior to encounter. Physical Exam ED Triage Vitals Temp Heart Rate Resp BP 06/21/2423206/21/2423206/21/2423206/21/24232 36.8 ??C (98.2 ??F) 78 18 129/76 SpO2 Temp Source Heart Rate Source Patient Position 06/21/2423206/21/24232 -- 06/21/24 06 98 % Oral Sitting BP Location FiO2 (%) 06/21/24 0622 -- Right arm General: Alert and oriented x 3, nontoxic, well-appearing, in no acute distress. Pleasant. Well-appearing, well nourished. Conversing and following commands appropriately with clear sensorium. HEENT: [place] and moist mucosa. No active nasal bleeding or oral bleeding or obvious ulcers or obvious wounds. Neck: Soft and supple Chest: Good air entry bilaterally. Clear to auscultation; no evidence of respiratory distress Circulatory: RRR Abdomen: Soft, non-distended, Non-Tender Extremities: Warm and well-perfused, Skin: Warm and dry Neuro: Alert and oriented x 3, no obvious gross acute focal deficits Results Labs Reviewed COMPREHENSIVE METABOLIC PANEL - Abnormal Result Value Sodium 138 Potassium 3.9 Chloride 105 CO2 30 Anion Gap 3 Glucose 100 BUN 15 Creatinine 1.24 eGFR 75 BUN/Creatinine Ratio 12.1 Calcium 9.5 AST (SGOT) 50 (*) ALT (SGPT) 77 (*) Alkaline Phosphatase 82 Total Protein 7.1 Albumin 3.8 Total Bilirubin 0.7 CBC WITH AUTO DIFFERENTIAL - Abnormal WBC 9.3 RBC 4.20 (*) Hemoglobin 13.3 (*) Hematocrit 41.1 (*) MCV 97.2 MCH 31.4 MCHC 32.4 RDW 11.9 Platelets 239 MPV 9.7 NRBC 0.0 NRBC Absolute 0.00 Neutrophils Relative 54.0 Lymphocytes Relative 34.8 Monocytes Relative 8.5 Eosinophils Relative 1.4 Basophils Relative 0.5 Immature Granulocytes Relative 0.8 Neutrophils Absolute 5.00 Lymphocytes Absolute 3.22 Monocytes Absolute 0.79 Eosinophils Absolute 0.13 Basophils Absolute 0.05 Immature Granulocytes Absolute 0.07 (*) TROPONIN I HIGH SENSITIVITY - Normal High Sensitivity Troponin I 5 Narrative: High levels of biotin in samples may falsely decrease hsTroponin values. Use caution when interpreting hsTroponin results in patients taking biotin who exhibit renal impairment (eGFR <60) or in patients taking more than 20 mg/day of biotin. TROPONIN I HIGH SENSITIVITY - Normal High Sensitivity Troponin I 8 Narrative: High levels of biotin in samples may falsely decrease hsTroponin values. Use caution when interpreting hsTroponin results in patients taking biotin who exhibit renal impairment (eGFR <60) or in patients taking more than 20 mg/day of biotin. LIPASE - Normal Lipase 56 MAGNESIUM - Normal Magnesium 2.1 CBC AND DIFFERENTIAL Narrative: The following orders were created for panel order CBC and differential. Procedure Abnormality Status --------- ------ CBC auto differential[[id number]] Abnormal Final result Please view results for these tests on the individual orders. Abnormal Labs Reviewed COMPREHENSIVE METABOLIC PANEL - Abnormal; Notable for the following components: Result Value AST (SGOT) 50 (*) ALT (SGPT) 77 (*) All other components within normal limits CBC WITH AUTO DIFFERENTIAL - Abnormal; Notable for the following components: RBC 4.20 (*) Hemoglobin 13.3 (*) Hematocrit 41.1 (*) Immature Granulocytes Absolute 0.07 (*) All other components within normal limits CT Angio Chest wo and/or w Contrast Final Result No pulmonary arterial emboli. No acute findings in the chest. -------- FINAL REPORT -------- Dictated By: ADDIE SAMPSON Dictated Date: 06/21/2024 09:35 ET Assigned Physician: ADDIE SAMPSON Reviewed and Electronically Signed By: ADDIE SAMPSON Signed Date: 06/21/2024 09:44 ET Workstation ID: [id number] Transcribed By: Self Edit Transcribed Date: 06/21/2024 09:35 ET XR Chest 2 Views Final Result Normal chest radiographs. -------- FINAL REPORT -------- Dictated By: Luke Millan Dictated Date: 06/21/2024 08:59 ET Assigned Physician: Luke Millan Reviewed and Electronically Signed By: Luke Millan Signed Date: 06/21/2024 09:06 ET Workstation ID: [id number] Transcribed By: Self Edit Transcribed Date: 06/21/2024 08:59 ET I have discussed the incidental/abnormal imaging and/or lab abnormalities with the patient and haveinstructed them the need for further evaluation and workup with their primary care doctor. The laboratory results, imaging results and other diagnostic exam results were reviewed in the EMR. EKG Interpretation Sinus rhythm at 82 bpm Critical Care Time None ? Medical Decision Making Medications sodium chloride 0.9 % flush 10 mL (10 mL intravenous Given 06/21/24853) iopamidoL (ISOVUE-370) 370 mg iodine /mL (76 %) injection 90 mL (90 mL intravenous Given 06/21/24853) ED Course as of 06/21/24 1022 WedJun 21, 2024 1007 Reevaluation note: Patient is doing very well in the ED, diagnostic studies reviewed. As notedin the HPI, the patient has been having this same chest pain for years . Heart score is 2. Low suspicion for ACS or any other serious life- threatening or potentially debilitating pathology causing the patient's symptoms today. He reports that he has been having bloody noses lately, and it is possib le that he may have been coughing up blood secondary to his bloody noses. There is no active bleeding or any active ulcers to cauterize at this time. The patient states he feels well enough to go home, and wants to go home, and his caregiver also feels comfortable taking him home. He was advised tostart using humidifiers at home and nasal saline sprays, as the weather has been very cold in the air very dry particularly with the heat. He appears reliable, and will follow-up with his doctor regarding his mildly elevated liver function tests, and will return to the ED if gets worse in any way at all. [KN] ED Course User Index [KN] Kyrie Villalpando DO Clinical Impressions as of 06/21/24 1022 Other chest pain Acute cough Epistaxis Procedures Procedures Diagnosis 1. Other chest pain CT Angio Chest wo and/or w Contrast CT Angio Chest wo and/or w Contrast 2. Acute cough 3. Epistaxis Disposition Discharge ED Prescriptions Medication Sig Dispense Start Date End Date Auth. Provider methocarbamoL (ROBAXIN) 750 mg tablet Take 1 tablet (750 mg total) by mouth 4 (four) times a day for 10 days. 40 each 06/21/2024 07/01/2024 Kyrie Villalpando DO Physician Attestation Kyrie Villalpando DO 06/21/24 0833 Kyrie Vilallpando DO 06/21/24 1022 documented in this encounter Plan of Treatment Not on file documented as of this encounter Procedures Procedure Name Priority Date/Time Associated Diagnosis Comments ECG ANNOTATED 06/22/2024 ECG ANNOTATED 06/22/2024 CT ANGIO CHEST WO AND/OR W CONTRAST STAT 06/21/2024 9:03 AM EST Other chest pain TROPONIN I HIGH SENSITIVITY STAT 06/21/2024 4:14 AM EST ECG 12-LEAD STAT 06/21/2024 4:05 AM EST XR CHEST 2 VIEWS STAT 06/21/2024 2:46 AM EST TROPONIN I HIGH SENSITIVITY STAT 06/21/2024 2:40 AM EST CBC WITH AUTO DIFFERENTIAL STAT 06/21/2024 2:40 AM EST CBC AND DIFFERENTIAL STAT 06/21/2024 2:40 AM EST MAGNESIUM STAT 06/21/2024 2:40 AM EST LIPASE STAT 06/21/2024 2:40 AM EST COMPREHENSIVE METABOLIC PANEL STAT 06/21/2024 2:40 AM EST documented in this encounter Results * ECG-Annotated (06/22/2024) us Provider Onbase MD ECG ORDERABLES Final Result * ECG-Annotated (06/22/2024) us Provider Onbase MD ECG ORDERABLES Final Result * CT Angio Chest wo and/or w Contrast (06/21/2024 9:03 AM EST) Anatomical Region Laterality Modality Body Computed Tomogra phy 06/21/2024 9:35 AM EST Impressions 06/21/2024 9:44 AM EST No pulmonary arterial emboli. No acute findings in the chest. -------- FINAL REPORT -------- Dictated By: ADDIE SAMPSON Dictated Date: 06/21/2024 09:35 ET Assigned Physician: ADDIE SAMPSON Reviewed and Electronically Signed By: ADDIE SAMPSON Signed Date: 06/21/2024 09:44 ET Workstation ID: [id number] Transcribed By: Self Edit Transcribed Date: 06/21/2024 09:35 ET Narrative 06/21/2024 9:44 AM EST PROCEDURE: Chest CTA INDICATION: Chest pain TECHNIQUE: Chest CTA with intravenous administration of 90cc ISOVUE-370. Multi planar reformats were created and interpreted. The examination was performed utilizing dose reduction techniques.3-D or MIP images were produced with postprocessing on an independent computer workstation. ??Total DLP 275 COMPARISON: ??No priors available. FINDINGS: LUNGS/PLEURA: Central airways are patent. Lungs are clear. No pleural effusion or pneumothorax. MEDIASTINUM: No pulmonary arterial emboli. Thyroid gland is unremarkable. No mediastinal or hilar lymphadenopathy. Cardiac chambers are normal in size. No pericardial effusion. Esophagus is normal. CHEST WALL: No axillary lymphadenopathy or superficial hematoma. UPPER ABDOMEN:The visualized portions of the upper abdomen are unremarkable. BONES: Bones are normal Procedure Note Addie Sampson MD - 06/21/2024 PROCEDURE: Chest CTA INDICATION: Chest pain TECHNIQUE: Chest CTA with intravenous administration of 90cc ISOVUE-370.Multi planar reformats were created and interpreted. The examination wasperformed utilizing dose reduction techniques.3-D or MIP images wereproduced with postprocessing on an independent computer workstation.Total DLP 275 COMPARISON: No priors available. FINDINGS: LUNGS/PLEURA: Central airways are patent. Lungs are clear. No pleuraleffusion or pneumothorax. MEDIASTINUM: No pulmonary arterial emboli. Thyroid gland is unremarkable.No mediastinal or hilar lymphadenopathy. Cardiac chambers are normal insize. No pericardial effusion. Esophagus is normal. CHEST WALL: No axillary lymphadenopathy or superficial hematoma. UPPER ABDOMEN:The visualized portions of the upper abdomen areunremarkable. BONES: Bones are normal IMPRESSION: No pulmonary arterial emboli. No acute findings in the chest. -------- FINAL REPORT -------- Dictated By: ADDIE SAMPSON Dictated Date: 06/21/2024 09:35 ET Assigned Physician: ADDIE SAMPSON Reviewed and Electronically Signed By: ADDIE SAMPSON Signed Date: 06/21/2024 09:44 ET Workstation ID: [id number] Transcribed By: Self Edit Transcribed Date: 06/21/2024 09:35 ET Kyrie Villalpando DO IMG CT PROCEDURES Final Result * Troponin I high sensitivity (06/21/2024 4:14 AM EST) High Sensitivity Troponin I 8 <=79 ng/L LAB CHEMISTRY METHOD 06/21/2024 4:41 AM EST [facility] Blood Venous blood specimen / Unknown Venipuncture / Unknown 06/21/2024 4:14 AM EST 06/21/2024 4:17 AM EST Narrative [facility] - 06/21/2024 4:41 AM EST High levels of biotin in samples may falsely decrease hsTroponin values. ??Use caution when interpreting hsTroponin results in patients taking biotin who exhibit renal impairment (eGFR <60) or in patients taking more than 20 mg/day of biotin. Kyrie Villalpando DO LAB BLOOD ORDERABLES Final Res ult Performing Organization Address [facility] Co de Phone Number [facility] [address] [place] [address], [place] [phone] * ECG 12 lead (06/21/2024 4:05 AM EST) Ventricular Rate ECG 77 BPM GEMUSE Atrial Rate 77 BPM GEMUSE P-R Interval 182 ms GEMUSE QRS Duration 90 ms GEMUSE Q-T Interval 346 ms GEMUSE QTc 391 ms GEMUSE P Wave [place] 53 degrees GEMUSE R [place] 36 degrees GEMUSE T [place] 45 degrees GEMUSE ECG Interpretation Normal sinus rhythm When compared with ECG of 18-OCT-2020 03:07, No significant change was found Confirmed by MICHAEL STANLEY ([id number]) on 06/21/2024 8:06:10 PM GEMUSE 06/21/2024 4:05 AM EST 06/21/2024 8:06 PM EST Kyrie Cecilia Villalpando DO ECG ORDERABLES Final Result Performing Organization Address [facility] Co de Phone Number GEMUSE * XR Chest 2 Views (06/21/2024 2:46 AM EST) Anatomical Region Laterality Modality Body Radiographic Lori ging 06/21/2024 8:59 AM EST Impressions 06/21/2024 9:06 AM EST Normal chest radiographs. -------- FINAL REPORT -------- Dictated By: Luke Millan Dictated Date: 06/21/2024 08:59 ET Assigned Physician: Luke Millan Reviewed and Electronically Signed By: Luke Millan Signed Date: 06/21/2024 09:06 ET Workstation ID: [id number] Transcribed By: Self Edit Transcribed Date: 06/21/2024 08:59 ET Narrative 06/21/2024 9:06 AM EST PROCEDURE: PA and lateral radiographs of the chest. HISTORY: chest pain. COMPARISON: 11/23/2018. FINDINGS: The heart, mediastinum, lungs, pleural spaces, and bony thorax are normal. Procedure Note Luke Millan MD - 06/21/2024 PROCEDURE: PA and lateral radiographs of the chest. HISTORY: chest pain. COMPARISON: 11/23/2018. FINDINGS: The heart, mediastinum, lungs, pleural spaces, and bony thorax arenormal. IMPRESSION: Normal chest radiographs. -------- FINAL REPORT -------- Dictated By: Luke Millan Dictated Date: 06/21/2024 08:59 ET Assigned Physician: Luke Millan Reviewed and Electronically Signed By: Luke Millan Signed Date: 06/21/2024 09:06 ET Workstation ID: [id number] Transcribed By: Self Edit Transcribed Date: 06/21/2024 08:59 ET Kyrie Villalpando DO IMG XR PROCEDURES Final Result * (ABNORMAL) CBC auto differential (06/21/2024 2:40 AM EST) [facility] WBC 9.3 4.8 - 10.8 K/mcL LAB HEMETOLOGY METHOD 06/21/2024 2:49 AM [facility] RBC 4.20(L) 4.50 - 5.50 M/mcL LAB HEMETOLOGY METHOD 06/21/2024 2:49 AM [facility] Hemoglobin 13.3(L) 13.5 - 17.5 g/dL LAB HEMETOLOGY METHOD 06/21/2024 2:49 AM [facility] Hematocrit 41.1(L) 42.0 - 54.0 % LAB HEMETOLOGY METHOD 06/21/2024 2:49 AM [facility] MCV 97.2 79.0 - 98.0 FL LAB HEMETOLOGY METHOD 06/21/2024 2:49 AM [facility] MCH 31.4 27.0 - 32.0 pcg LAB HEMETOLOGY METHOD 06/21/2024 2:49 AM [facility] MCHC 32.4 32.0 - 37.0 g/dL LAB HEMETOLOGY METHOD 06/21/2024 2:49 AM [facility] RDW 11.9 11.0 - 15.0 % LAB HEMETOLOGY METHOD 06/21/2024 2:49 AM [facility] Platelets 239 130 - 400 K/mcL LAB HEMETOLOGY METHOD 06/21/2024 2:49 AM [facility] MPV 9.7 7.0 - 11.0 FL LAB HEMETOLOGY METHOD 06/21/2024 2:49 AM [facility] NRBC 0.0 <1.0 % LAB HEMETOLOGY METHOD 06/21/2024 2:49 AM [facility] NRBC Absolute 0.00 <0.10 K/mcL LAB HEMETOLOGY METHOD 06/21/2024 2:49 AM [facility] Neutrophils Relative 54.0 % LAB HEMETOLOGY METHOD 06/21/2024 2:49 AM [facility] Lymphocytes Relative 34.8 % LAB HEMETOLOGY METHOD 06/21/2024 2:49 AM [facility] Monocytes Relative 8.5 % LAB HEMETOLOGY METHOD 06/21/2024 2:49 AM [facility] Eosinophils Relative 1.4 % LAB HEMETOLOGY METHOD 06/21/2024 2:49 AM [facility] Basophils Relative 0.5 % LAB HEMETOLOGY METHOD 06/21/2024 2:49 AM [facility] Immature Granulocytes Relative 0.8 % LAB HEMETOLOGY METHOD 06/21/2024 2:49 AM EST [facility] Neutrophils Absolute 5.00 1.50 - 7.00 K/mcL LAB HEMETOLOGY METHOD 06/21/2024 2:49 AM EST [facility] Lymphocytes Absolute 3.22 1.00 - 5.00 K/mcL LAB HEMETOLOGY METHOD 06/21/2024 2:49 AM EST [facility] Monocytes Absolute 0.79 0.20 - 1.00 K/mcL LAB HEMETOLOGY METHOD 06/21/2024 2:49 AM EST [facility] Eosinophils Absolute 0.13 0.00 - 0.50 K/[facility] LAB HEMETOLOGY METHOD 06/21/2024 2:49 AM EST [facility] Basophils Absolute 0.05 0.00 - 0.20 K/mcL LAB HEMETOLOGY METHOD 06/21/2024 2:49 AM EST [facility] Immature Granulocytes Absolute 0.07(H) 0.00 - 0.03 K/mcL LAB HEMETOLOGY METHOD 06/21/2024 2:49 AM EST [facility] Blood Venous blood specimen / Unknown Venipuncture / Unknown 06/21/2024 2:40 AM EST 06/21/2024 2:45 AM EST us Kyrie Villalpando DO LAB BLOOD ORDERABLES Final Res ult [facility] [address] [place] [address], * Magnesium (06/21/2024 2:40 AM EST) Magnesium 2.1 1.9 - 2.6 mg/dL LAB CHEMISTRY METHOD 06/21/2024 3:08 AM EST [facility] Blood Venous blood specimen / Unknown Venipuncture / Unknown 06/21/2024 2:40 AM EST 06/21/2024 2:45 AM EST us Kyrie Villalpando DO LAB BLOOD ORDERABLES Final Res ult Performing Organization Address [facility]/ZIP Co de Phone Number [facility] [address] [place] [address], [place] [phone] * Lipase (06/21/2024 2:40 AM EST) Pathologist [facility] Lipase 56 13 - 75 unit/L LAB CHEMISTRY METHOD 06/21/2024 3:08 AM [facility] Blood Venous blood specimen / Unknown Venipuncture / Unknown 06/21/2024 2:40 AM EST 06/21/2024 2:45 AM EST us Kyrie Villalpando DO LAB BLOOD ORDERABLES Final Res ult Performing Organization Address [facility] de Phone Number [facility] [address] [place] [address], [place] [phone] * (ABNORMAL) Comprehensive metabolic panel (06/21/2024 2:40 AM EST) [facility] Sodium 138 133 - 145 mmol/L LAB CHEMISTRY METHOD 06/21/2024 3:08 AM [facility] Potassium 3.9 3.5 - 5.5 mmol/L LAB CHEMISTRY METHOD 06/21/2024 3:08 AM [facility] Chloride 105 96 - 110 mmol/L LAB CHEMISTRY METHOD 06/21/2024 3:08 AM [facility] CO2 30 21 - 32 mmol/L LAB CHEMISTRY METHOD 06/21/2024 3:08 AM [facility] Anion Gap 3 3 - 11 LAB CHEMISTRY METHOD 06/21/2024 3:08 AM [facility] Glucose 100 70 - 100 mg/dL LAB CHEMISTRY METHOD 06/21/2024 3:08 AM [facility] BUN 15 5 - 25 mg/dL LAB CHEMISTRY METHOD 06/21/2024 3:08 AM [facility] Creatinine 1.24 0.70 - 1.30 mg/dL LAB CHEMISTRY METHOD 06/21/2024 3:08 AM [facility] eGFR 75 >=60 mL/min/1. 73m2 LAB CHEMISTRY METHOD 06/21/2024 3:08 AM [facility] Comment:Calculation based on the??Chronic Kidney Disease Epidemiology Collaboration (CKD-EPI) equation refit??without adjustment for race. BUN/Creatinine Ratio 12.1 LAB CHEMISTRY METHOD 06/21/2024 3:08 AM [facility] Calcium 9.5 8.5 - 10.5 mg/dL LAB CHEMISTRY METHOD 06/21/2024 3:08 AM [facility] AST (SGOT) 50(H) 10 - 42 unit/L LAB CHEMISTRY METHOD 06/21/2024 3:08 AM [facility] ALT (SGPT) 77(H) 10 - 60 unit/L LAB CHEMISTRY METHOD 06/21/2024 3:08 AM [facility] Alkaline Phosphatase 82 42 - 121 unit/L LAB CHEMISTRY METHOD 06/21/2024 3:08 AM [facility] Total Protein 7.1 6.0 - 8.0 g/dL LAB CHEMISTRY METHOD 06/21/2024 3:08 AM [facility] Albumin 3.8 3.2 - 5.0 g/dL LAB CHEMISTRY METHOD 06/21/2024 3:08 AM [facility] Total Bilirubin 0.7 0.0 - 1.4 mg/dL LAB CHEMISTRY METHOD 06/21/2024 3:08 AM [facility] Blood Venous blood specimen / Unknown Venipuncture / Unknown 06/21/2024 2:40 AM EST 06/21/2024 2:45 AM EST Kyrie Villalpando DO LAB BLOOD ORDERABLES Final Res ult Performing Organization Address City/[facility] Co de Phone Number [facility] [address] [place] [address], * Troponin I high sensitivity (06/21/2024 2:40 AM EST) High Sensitivity Troponin I 5 <=79 ng/L LAB CHEMISTRY METHOD 06/21/2024 3:08 AM EST [facility] Blood Venous blood specimen / Unknown Venipuncture / Unknown 06/21/2024 2:40 AM EST 06/21/2024 2:45 AM EST Narrative [facility] - 06/21/2024 3:08 AM EST High levels of biotin in samples may falsely decrease hsTroponin values. ??Use caution when interpreting hsTroponin results in patients taking biotin who exhibit renal impairment (eGFR <60) or in patients taking more than 20 mg/day of biotin. Kyrie Villalpando DO LAB BLOOD ORDERABLES Final Res ult Performing Organization Address [facility] de Phone Number [facility] [address] [place] [address], [place] [phone] documented in this encounter Visit Diagnoses Diagnosis Other chest pain- Primary Acute cough Epistaxis documented in this encounter Administered Medications Inactive Administered Medications - up to 3 most recent administrations Medication Order MAR Action Action Date Dose Rate Site iopamidoL (ISOVUE-370) 370 mg iodine /mL (76 %) injection 90 mL 90 mL, intravenous, Once in imaging, Starting on Wed06/21/24 at 0854, For 1 dose Given 06/21/2024 8:54 AM EST 90 mL sodium chloride 0.9 % flush 10 mL 10 mL, intravenous, Once, On Wed06/21/24 at 0855, For 1 dose Given 06/21/2024 8:54 AM EST 10 mL documented in this encounter Active and Recently Administered Medications Times are shown in EST. Scheduled Medication Order 06/19/2024 06/20/2024 06/21/2024 iopamidoL (ISOVUE-370) 370 mg iodine /mL (76 %) injection 90 mL (COMPLETED) 90 mL, intravenous, Once in imaging, Starting on Wed06/21/24 at 0854, For 1 dose 0854 (Given - Provid er: Suzette Windrum) sodium chloride 0.9 % flush 10 mL (COMPLETED) 10 mL, intravenous, Once, On Wed06/21/24 at 0855, For 1 dose 0854 (Given - Provid er: Suzette Windrum) documented in this encounter Orders EKG Orders Without Results Count Last Ordered D ate First Ordered Date ECG 12-LEAD 1 06/21/2024 documented in this encounter Care Teams Safe Deposit Clerk Relationship Specialty Start Date End Date Zofia Lyon PA [address] [place] [address] PCP - General Physician Driver Guide 06/21/24 documented as of this encounter
--- OUTSIDE RECORDS SUMMARY | 2024-06-29 08:47 | XMS_ITS | Clinical Summary ---
Author Organization [facility] Address [address] [place] [address] Phone Care Team Providers Care Marine Extension Agent Name Role Phone Zofia Lyon Primary Care Provider [phone] Allergies No known active allergies Medications methocarbamoL (ROBAXIN) 750 mg tablet Take 1 tablet (750 mg total) by mouth 4 (four) times a day for 10 days. 40 each 06/21/2024 Active Encounters Date Type Department Care Team Description 06/21/2024 7:35 AM EST - 06/21/2024 11:[address] [facility] Emergency [address] [place] [address] Kyrie Villalpando DO Other chest pain (Primary Dx); Acute cough; Epistaxis Discharge Disposition: Home or Self Care from Last 3 Months Medical History Medical History Date Comments Hypertension Social History Tobacco Use Types Packs/Day Years [...] AM EST Sexual Orientation Not on file Obstetrics History [...] Mass Index 28.29 06/21/2024 2:33 AM EST Plan of Treatment Health Maintenance Due Date Last Done Comments DTaP,Tdap,and Td Vaccines (1 - Tdap) 2001 Hepatitis B Vaccines (1 of 3 - 19+ 3-dose series) 2001 Social Influencers of Health Screening 04/05/2022 COVID-19 Vaccine (2023- season) 2024 Influenza Vaccine (#1) 2024 Depression Screening 05/06/2024 05/06/2023 Hypertension/CHF/CAD Annual BMP Blood Test 06/21/2025 06/21/2024, 11/26/2023 Cholesterol Screening (Lipid Panel) 11/14/2028 11/15/2023, 12/05/2021, 01/29/2021, Additional history exists HIV Screening Completed 11/18/2017 Hepatitis C Screening Completed 01/29/2021 HIB Vaccines Aged Out No longer eligi [...] patient's age to complete this topic Meningococcal B Vacine Aged Out No lo nger eligible based on patient's age to complete this topic Pneumococcal Vaccine: Pediatrics (0 to 5 Years) and At-Risk Patients (6 to 64 Years) Aged Out No longer eligible based on patient's age to complete this topic RSV Immunization Patients Under 20 months Aged Out No longer eligible based on patient's age to complete this topic Varicella Vaccines Aged Out No longer eligible based on patient's age to complete this topic Procedures Procedure Name Priority Date/Time Associated Diagnosis Comments ECG ANNOTATED 06/22/2024 ECG ANNOTATED 06/22/2024 CT ANGIO CHEST WO AND/OR W CONTRAST STAT 06/21/2024 9:03 AM EST Other chest pain TROPONIN I HIGH SENSITIVITY STAT 06/21/2024 4:14 AM EST ECG 12-LEAD STAT 06/21/2024 4:05 AM EST XR CHEST 2 VIEWS STAT 06/21/2024 2:46 AM EST CBC WITH AUTO DIFFERENTIAL STAT 06/21/2024 2:40 AM EST MAGNESIUM STAT 06/21/2024 2:40 AM EST LIPASE STAT 06/21/2024 2:40 AM EST COMPREHENSIVE METABOLIC PANEL STAT 06/21/2024 2:40 AM EST CBC AND DIFFERENTIAL STAT 06/21/2024 2:40 AM EST TROPONIN I HIGH SENSITIVITY STAT 06/21/2024 2:40 AM EST from Last 3 Months Results * ECG-Annotated (06/22/2024) Only the most recent of2 resultswithin the time period is included. us Provider Onbase MD ECG ORDERABLES Final Result * CT Angio Chest wo and/or w Contrast (06/21/2024 9:03 AM EST) Anatomical Region Laterality Modality Body Computed Tomogra phy 06/21/2024 9:35 AM EST Impressions 06/21/2024 9:44 AM EST No pulmonary arterial emboli. No acute findings in the chest. -------- FINAL REPORT -------- Dictated By: ADDIE AGEE Dictated Date: 06/21/2024 09:35 ET Assigned Physician: ADDIE AGEE Reviewed and Electronically Signed By: ADDIE AGEE Signed Date: 06/21/2024 09:44 ET Workstation ID: [id number] Transcribed By: Self Edit Transcribed Date: 06/21/2024 [...] BONES: Bones are normal Procedure Note Addie Agee MD - 06/21/2024 PROCEDURE: Chest CTA INDICATION: [...] -------- FINAL REPORT -------- Dictated By: ADDIE AGEE Dictated Date: 06/21/2024 09:35 ET Assigned Physician: ADDIE AGEE Reviewed and Electronically Signed By: ADDIE AGEE Signed Date: 06/21/2024 09:44 ET Workstation ID: [id number] Transcribed By: Self Edit Transcribed Date: 06/21/2024 09:35 ET us Kyrie Villalpando DO IMG CT PROCEDURES Final Result * Troponin I high sensitivity (06/21/2024 4:14 AM EST) Only the most recent of2 resultswithin the time period is included. [facility] High Sensitivity Troponin I 8 <=79 ng/L LAB CHEMISTRY METHOD 06/21/2024 4:41 AM EST [facility] Blood Venous blood specimen / Unknown Venipuncture / Unknown 06/21/2024 4:14 AM EST 06/21/2024 4:17 AM EST Narrative [facility] - 06/21/2024 4:41 AM EST High levels of biotin in samples may falsely decrease hsTroponin values. ??Use caution when interpreting hsTroponin results in patients taking biotin who exhibit renal impairment (eGFR <60) or in patients taking more than 20 mg/day of biotin. us Kyrie Villalpando DO LAB BLOOD ORDERABLES Final Res ult [facility] [address] [place] [address], * ECG 12 lead (06/21/2024 4:05 AM EST) [facility] Ventricular Rate ECG 77 BPM GEMUSE Atrial Rate 77 BPM GEMUSE P-R Interval 182 ms GEMUSE QRS Duration 90 ms GEMUSE Q-T Interval 346 ms GEMUSE QTc 391 ms GEMUSE P Wave [place] 53 degrees GEMUSE R [place] 36 degrees GEMUSE T [place] 45 degrees GEMUSE ECG Interpretation Normal sinus rhythm When compared with ECG of 18-OCT-2020 03:07, No significant change was found Confirmed by MICHAEL STANLEY ([id number]) on 06/21/2024 8:06:10 PM GEMUSE 06/21/2024 4:05 AM EST 06/21/2024 8:06 PM EST Kyrie Villalpando DO ECG ORDERABLES Final Result GEMUSE * XR Chest 2 Views (06/21/2024 2:46 AM EST) Anatomical Region Laterality Modality Body Radiographic Lori ging 06/21/2024 8:59 AM EST Impressions 06/21/2024 9:06 AM EST Normal chest radiographs. -------- FINAL REPORT -------- Dictated By: Luke Millan Dictated Date: 06/21/2024 08:59 ET Assigned Physician: Luke Millan Reviewed and Electronically Signed By: Luke Millan Signed Date: 06/21/2024 09:06 ET Workstation ID: [id number] Transcribed By: Self Edit Transcribed Date: 06/21/2024 [...] Signed Date: 06/21/2024 09:06 ET Workstation ID: [id number] Transcribed By: Self Edit Transcribed Date: 06/21/2024 08:59 ET Kyrie Villalpando DO IMG XR PROCEDURES Final Result * (ABNORMAL) CBC auto differential (06/21/2024 2:40 AM EST) [facility] WBC 9.3 4.8 - 10.8 K/mcL LAB HEMETOLOGY METHOD 06/21/2024 2:49 AM [facility] RBC 4.20(L) 4.50 - 5.50 M/mcL LAB HEMETOLOGY METHOD 06/21/2024 2:49 AM [facility] Hemoglobin 13.3(L) 13.5 - 17.5 g/dL LAB HEMETOLOGY METHOD 06/21/2024 2:49 AM [facility] Hematocrit 41.1(L) 42.0 - 54.0 % LAB HEMETOLOGY METHOD 06/21/2024 2:49 AM [facility] MCV 97.2 79.0 - 98.0 FL LAB HEMETOLOGY METHOD 06/21/2024 2:49 AM [facility] MCH 31.4 27.0 - 32.0 pcg LAB HEMETOLOGY METHOD 06/21/2024 2:49 AM [facility] MCHC 32.4 32.0 - 37.0 g/dL LAB HEMETOLOGY METHOD 06/21/2024 2:49 AM [facility] RDW 11.9 11.0 - 15.0 % LAB HEMETOLOGY METHOD 06/21/2024 2:49 AM [facility] Platelets 239 130 - 400 K/mcL LAB HEMETOLOGY METHOD 06/21/2024 2:49 AM [facility] MPV 9.7 7.0 - 11.0 FL LAB HEMETOLOGY METHOD 06/21/2024 2:49 AM [facility] NRBC 0.0 <1.0 % LAB HEMETOLOGY METHOD 06/21/2024 2:49 AM [facility] NRBC Absolute 0.00 <0.10 K/mcL LAB HEMETOLOGY METHOD 06/21/2024 2:49 AM [facility] Neutrophils Relative 54.0 % LAB HEMETOLOGY METHOD 06/21/2024 2:49 AM [facility] Lymphocytes Relative 34.8 % LAB HEMETOLOGY METHOD 06/21/2024 2:49 AM [facility] Monocytes Relative 8.5 % LAB HEMETOLOGY METHOD 06/21/2024 2:49 AM [facility] Eosinophils Relative 1.4 % LAB HEMETOLOGY METHOD 06/21/2024 2:49 AM [facility] Basophils Relative 0.5 % LAB HEMETOLOGY METHOD 06/21/2024 2:49 AM [facility] Immature Granulocytes Relative 0.8 % LAB HEMETOLOGY METHOD 06/21/2024 2:49 AM [facility] Neutrophils Absolute 5.00 1.50 - 7.00 K/mcL LAB HEMETOLOGY METHOD 06/21/2024 2:49 AM [facility] Lymphocytes Absolute 3.22 1.00 - 5.00 K/mcL LAB HEMETOLOGY METHOD 06/21/2024 2:49 AM [facility] Monocytes Absolute 0.79 0.20 - 1.00 K/mcL LAB HEMETOLOGY METHOD 06/21/2024 2:49 AM [facility] Eosinophils Absolute 0.13 0.00 - 0.50 K/mcL LAB HEMETOLOGY METHOD 06/21/2024 2:49 AM [facility] Basophils Absolute 0.05 0.00 - 0.20 K/mcL LAB HEMETOLOGY METHOD 06/21/2024 2:49 AM [facility] Immature Granulocytes Absolute 0.07(H) 0.00 - 0.03 K/mcL LAB HEMETOLOGY METHOD 06/21/2024 2:49 AM [facility] Blood Venous blood specimen / Unknown Venipuncture / Unknown 06/21/2024 2:40 AM EST 06/21/2024 2:45 AM EST us Kyrie Villalpando DO LAB BLOOD ORDERABLES Final Res ult Performing Organization Address [facility]/State/ZIP Co de Phone Number [facility] [address] [place] [address], [place] [phone] * Magnesium (06/21/2024 2:40 AM EST) Pathologist [facility] Magnesium 2.1 1.9 - 2.6 mg/dL LAB CHEMISTRY METHOD 06/21/2024 3:08 AM EST [facility] Blood Venous blood specimen / Unknown Venipuncture / Unknown 06/21/2024 2:40 AM EST 06/21/2024 2:45 AM EST us Kyrie Villalpando DO LAB BLOOD ORDERABLES Final Res ult Performing Organization Address [facility]/ZIP Co de Phone Number [facility] [address] [place] [address], [place] [phone] * Lipase (06/21/2024 2:40 AM EST) [facility] Lipase 56 13 - 75 unit/L LAB CHEMISTRY METHOD 06/21/2024 3:08 AM EST [facility] Blood Venous blood specimen / Unknown Venipuncture / Unknown 06/21/2024 2:40 AM EST 06/21/2024 2:45 AM EST us Kyrie Villalpando DO LAB BLOOD ORDERABLES Final Res ult [facility] [address] [place] [address], [place] [phone] * (ABNORMAL) Comprehensive metabolic panel (06/21/2024 2:40 AM EST) Pathologist [facility] Sodium 138 133 - 145 mmol/L LAB CHEMISTRY METHOD 06/21/2024 3:08 AM [facility] Potassium 3.9 3.5 - 5.5 mmol/L LAB CHEMISTRY METHOD 06/21/2024 3:08 AM [facility] Chloride 105 96 - 110 mmol/L LAB CHEMISTRY METHOD 06/21/2024 3:08 AM [facility] CO2 30 21 - 32 mmol/L LAB CHEMISTRY METHOD 06/21/2024 3:08 AM [facility] Anion Gap 3 3 - 11 LAB CHEMISTRY METHOD 06/21/2024 3:08 AM [facility] Glucose 100 70 - 100 mg/dL LAB CHEMISTRY METHOD 06/21/2024 3:08 AM [facility] BUN 15 5 - 25 mg/dL LAB CHEMISTRY METHOD 06/21/2024 3:08 AM [facility] Creatinine 1.24 0.70 - 1.30 mg/dL LAB CHEMISTRY METHOD 06/21/2024 3:08 AM [facility] eGFR 75 >=60 mL/min/1. 73m2 LAB CHEMISTRY METHOD 06/21/2024 3:08 AM [facility] Comment:Calculation based on the??Chronic Kidney Disease Epidemiology Collaboration (CKD-EPI) equation refit??without adjustment for race. BUN/Creatinine Ratio 12.1 LAB CHEMISTRY METHOD 06/21/2024 3:08 AM [facility] Calcium 9.5 8.5 - 10.5 mg/dL LAB CHEMISTRY METHOD 06/21/2024 3:08 AM [facility] AST (SGOT) 50(H) 10 - 42 unit/L LAB CHEMISTRY METHOD 06/21/2024 3:08 AM [facility] ALT (SGPT) 77(H) 10 - 60 unit/L LAB CHEMISTRY METHOD 06/21/2024 3:08 AM [facility] Alkaline Phosphatase 82 42 - 121 unit/L LAB CHEMISTRY METHOD 06/21/2024 3:08 AM EST [facility] Total Protein 7.1 6.0 - 8.0 g/dL LAB CHEMISTRY METHOD 06/21/2024 3:08 AM EST [facility] Albumin 3.8 3.2 - 5.0 g/dL LAB CHEMISTRY METHOD 06/21/2024 3:08 AM EST [facility] Total Bilirubin 0.7 0.0 - 1.4 mg/dL LAB CHEMISTRY METHOD 06/21/2024 3:08 AM EST [facility] Blood Venous blood specimen / Unknown Venipuncture / Unknown 06/21/2024 2:40 AM EST 06/21/2024 2:45 AM EST us Kyrie Villalpando DO LAB BLOOD ORDERABLES Final Res ult [facility] [address] [place] [address], from Last 3 Months Insurance [facility] Care Teams Marine Extension Agent Relationship Specialty Start Date End Date Zofia Lyon PA [address] [place] [address] PCP - General Physician Marker Hand 06/21/24
--- OUTSIDE RECORDS SUMMARY | 2024-06-29 08:47 | XMS_ITS | Clinical Summary ---
Author Organization [facility] Address [address] [place] [address] Care Team Providers Care Filing Writer Name Role Phone Ben Grant MD Primary Care Provider [phone] Source Comments PLEASE NOTE, if this patient [...] 3 - 19 + 3-dose series) 2001 Mer-VRQAD-60 () 01/02/2024 Imm-Influenza (#1) 2024 Alcohol and [...] EDT) GLUCOSE 92 65 - 99 mg/dL [facility] Comment: ?Fasting reference interval UREA NITROGEN (BUN) 12 7 - 25 mg/dL [facility] CREATININE (blood) 1.10 0.60 - 1.29 mg/dL [facility] EGFR 86 > OR = 60 mL/min/1. 73m2 [facility] BUN/CREATININE RATIO SEE NOTE: [facility] Comment: ?? Not Reported: BUN and Creatinine are within ?? reference range. ? SODIUM 139 135 - 146 mmol/L [employer] [facility] POTASSIUM 4.1 3.5 - 5.3 mmol/L [facility] CHLORIDE 103 98 - 110 mmol/L [facility] CARBON DIOXIDE 30 20 - 32 mmol/L [employer] [facility] CALCIUM 9.3 8.6 - 10.3 mg/dL [employer] PROTEIN, TOTAL 7.2 6.1 - 8.1 g/dL [employer] [facility] ALBUMIN 4.3 3.6 - 5.1 g/dL [facility] GLOBULIN 2.9 1.9 - 3.7 g/dL (calc) [employer] [facility] ALBUMIN/GLOBULI N RATIO 1.5 1.0 - 2.5 (calc) [facility] BILIRUBIN, TOTAL 1.1 0.2 - 1.2 mg/dL [facility] ALKALINE PHOSPHATASE 75 36 - 130 U/L [facility] AST 27 10 - 40 U/L [facility] ALT 34 9 - 46 U/L [facility] Blood Blood / Unknown 11/26/2023 1 1:19 AM EDT 11/26/2023 11:19 AM EDT Ben Grant MD LAB - BLOOD DRAW Edited Result - Final Performing Organization Address [facility]/ZIP Co de Phone Number [employer] [address] [address], [employer] [address] [address] * (ABNORMAL) LIPIDS W RFLX TO DIRECT LDL (11/15/2023 10:25 AM EDT) CHOLESTEROL, TOTAL 200(H) <200 mg/dL [employer] [facility] HDL CHOLESTEROL 46 > OR = 40 mg/dL [employer] [facility] TRIGLYCERIDES 76 <150 mg/dL [employer] [facility] LDL-CHOLESTEROL 137(H) 99 mg/dL (calc) [employer] [facility] Comment: Reference range: <100 Desirable range <100 mg/dL for primary prevention; ?? <70 mg/dL for patients with CHD or diabetic patients with > or = 2 CHD risk factors. LDL-C is now calculated using the David-Cassandra calculation, which is a validated novel method providing better accuracy than the Friedewald equation in the estimation of LDL-C. David SS et al. SIL. 2013;310(19): 8383-1932 (http://education.HooftyMatch/faq/DFB657) CHOL/HDLC RATIO 4.3 <5.0 (calc) [employer] [facility] NON-HDL CHOLESTEROL 154(H) <130 mg/dL (calc) [employer] [facility] Comment: For patients with diabetes plus 1 major ASCVD risk factor, treating to a non-HDL-C goal of <100 mg/dL (LDL-C of <70 mg/dL) is considered a therapeutic option. Blood Blood / Unknown 11/15/2023 1 0:25 AM EDT 11/15/2023 10:28 AM EDT Narrative [employer] [facility] - 11/16/2023 4:26 AM EDT FASTING:YES us Ben Grant MD LAB - BLOOD DRAW Edited Result - Final Performing Organization Address City/[facility]/ZIP Co de Phone Number [employer] [address] [place] [address], [employer] [facility] [address] [place] [address] * HEPATITIS C AB W/RFLX HCV RNA, QT, RT PCR (01/29/2021 9:21 AM EDT) Pathologist [facility] HEPATITIS C ANTIBODY NON-REACT RADHA NON-REACT RADHA [facility] SIGNAL TO CUT-OFF 0.01 <1.00 [facility] Comment: HCV antibody was non-reactive. There is no laboratory evidence of HCV infection. In most cases, no further action is required. However, if recent HCV exposure is suspected, a test for HCV RNA (test code 35129) is suggested. For additional information please refer to http://education.LearnShark/faq/JBZ21r0 (This link is being provided for informational/ educational purposes only.) Blood Blood / Unknown 01/29/2021 9 :21 AM EDT 01/29/2021 9:21 AM EDT Narrative [employer] - 01/30/2021 12:19 AM EDT FASTING:YES Ben Grant MD LAB - BLOOD DRAW Edited Result - Final [employer] [address] [address], [facility] [address] [place] [address],[place] [address] * HIV-1 & HIV-2 ANTIBODIES (11/18/2017 1:41 PM EDT) [facility] HIV 1 AND 2 ANTIBODY SCREEN NEGATIVE NEGATIVE [facility] Comment: This assay is a 4th generation [...] PM EDT 11/18/2017 1:46 PM EDT [facility]ative [facility] 11/18/2017 10:16 PM EDT [facility] [employer] [address] [place] [address] PT ID [id number] ORD# [id number] us Ben Grant MD LAB - BLOOD DRAW Final Result [facility] [address] [place] [address], from Last 3 Months or Most Recently Relevant to Health Maintenance Insurance [employer]/LISA SAN Member Subscriber Plan / Payer (Ef fective 2019-Present) Name:Chintan Moralez Relation to Subscriber:Self Name:Chintan Moralez Payer ID:[id number] Type:Indemnity Address: [address] [address] Care Teams Filing Writer Relationship Specialty Start Date End Date Ben Grant MD [address] [place] [address] PCP - General Internal Medicine 07/21/17
== END 2024-06-29 09:11 | disposition home or self-care (01) ==
PROVIDERS: PCP Physician Assistant; Visit Provider Physician Assistant
DX: R07.89 Other chest pain (principal); I10 Essential (primary) hypertension; K21.9 Gastro-esophageal reflux disease without esophagitis; K76.9 Liver disease, unspecified; R04.2 Hemoptysis

== ENCOUNTER 2024-07-08 13:38 | Outpatient (REF) | payer BC, SELFPAY ==
--- NOTE | ~2024-07-08 | MR_ITS ---
EXAMINATION: MRI Abdomen without and with contrast HISTORY: K76.9 - Liver disease, unspecified COMPARISON: Correlation is made with an abdominal ultrasound dated 06/16/2024. TECHNIQUE: Axial in and out of phase T1-weighted gradient echo, axial diffusion weighted, and axial and coronal HASTE T2 with fat saturation images were obtained through the abdomen. Subsequently, fat suppressed axial and coronal T1-weighted images were obtained after the intravenous administration of 7.5 mL Gadavist. FINDINGS: There is no significant signal loss within the liver on opposed phase imaging to suggest steatosis. There is a 1.4 x 1.0 cm T2 hyperintense mass in the posterior segment of the right lobe, which demonstrates peripheral nodular enhancement with fill-in over time, consistent with a hemangioma. A tiny subcentimeter hypointense focus is noted more centrally in the right lobe, which is not definitely identified on T2-weighted images, likely due to patient motion. This lesion is too small to accurately characterize. No additional liver mass is seen. The hepatic and portal veins are patent. There is no intra or extrahepatic biliary ductal dilatation. The gallbladder, spleen, pancreas, adrenals, and kidneys are unremarkable. No retroperitoneal lymphadenopathy or ascites is identified in the upper abdomen. The visualized bones demonstrate normal signal intensity. MR/MR abdomen wo/w con IMPRESSION: Findings consistent with a 1.4 x 1.0 cm hemangioma in the posterior segment of the right lobe of the liver corresponding to the larger lesion noted on abdominal ultrasound. The smaller lesion is too small to accurately characterize. Electronically signed by: Homar Beavers MD 07/10/2024 11:54 AM EDT
[2024-07-08] MEDS: gadobutroL 7.5 ML VIAL IVPUSH (14:45)
== END 2024-07-08 13:39 | disposition home or self-care (01) ==
LOC: HO.MRI 13:38
PROVIDERS: PCP Physician Assistant; Visit Provider Physician Assistant
DX: K76.9 Liver disease, unspecified (principal); K76.0 Fatty (change of) liver, not elsewhere classified
CPT/HCPCS: 74183; A9585

== ENCOUNTER → 2024-07-08 13:50 | Outpatient (BNV) | payer BC, SELFPAY | PROVIDERS: PCP Physician Assistant; Visit Provider Radiology Diagnostic Radiology | DX: K76.9 Liver disease, unspecified (principal) | CPT/HCPCS: 74183 ==

== ENCOUNTER 2024-07-13 10:53 | Outpatient (AMB) | payer BC, SELFPAY ==
--- NOTE | 2024-07-13 11:25 | A.OFFPC_ITS ---
Intake Visit Reasons: GI sx Intake Note: GI symptoms. Leave paperwork. 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 CV: He has a history of ongoing chest pain and is currently undergoing workup. Has testing scheduled later this month. No change in symptoms. The chest pain has been persistent since approximately the year 1999, and although initially manageable, it has recently increased in severity. The pain is primarily located on the left side of the chest and exacerbates with certain physical movements, such as swinging the arms or twisting the upper body. The patient denies any significant amelioration from muscle relaxants previously prescribed. This musculoskeletal chest pain has been persistent for nearly 25 years. He states that he is just very concerned about this chest wall pain especially as he has had an abnormal EKG. Since having the abnormal EKG he has had multiple troponin levels which have been negative. He states that this chest pain is unchanged since the year 1999. He does not have any chest pain or shortness a breath with exertion. No palpitations or dizziness. His told him to take time off of work until he gets this worked up to make sure that he is not going to hurt himself. He states that he has a job that requires a lot of heavy lifting. The heavy lifting does exacerbate the pain. The pain is improved with rest. It is also worsened if he pushes on it or twists. GI: At our last visit we did discuss the acid reflux. He states that it was significantly improved with the omeprazole. He did have A liver MRI which was consistent with a hemangioma of the liver. He has a barium swallow scheduled next month. He was also referred to GI. He has not yet heard about an appointment time and date. He does somewhat experienced difficulty swallowing food but this is a lot better since starting omeprazole. No weight loss PFSH Surgical History No pertinent past surgical history Social History (Updated 07/13/24 @ 13:12 by Mindy Colorado CMA) Housing: House Alcohol intake: former Patient Tobacco Use Status: Former Tobacco user Years Smoked: unknown. 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 Current occupational exposures/hazards: No Cognitive needs: No Hearing needs: No Vision needs: No Questionnaire Thrive Questionnaire Date Thrive assessed: 07/13/24 I am a: Patient What is your living situation today?: I have a steady place to live Within the past 12 months, did the food you bought not last and you didn't have the money to get more?: Often true Within the past 12 months, did you worry whether your food would run out before you got money to buy more?: Often true Do you have trouble paying for medicines?: I choose not to answer this question Do you have trouble getting transportation to medical appointments?: I choose not to answer this question Do you have trouble paying your heating and electricity bill?: I choose not to answer this question Do you have trouble taking care of your child, family member or friend?: I choose not to answer this question Do you have trouble with day-to-day activities such as bathing, preparing meals, shopping, managing finances, etc.?: I choose not to answer this question Are you currently unemployed and looking for a job?: I choose not to answer this question Are you interested in more education?: I choose not to answer this question Please select the resources that you would like help with: None Currently or been in a relationship where the following occur: I choose not to answer THRIVE Score: 2 ALAINA-7 AMB Questionnaire ALAINA-7 Date ALAINA - 7 assessed: 04/05/24 Source: Developed by Drs. Homar Arevalo, Rosa M Celaya, Kris Contreras and colleagues, with an educational homar from [employer]. Physical exam (Primary Care) Tobacco/Smoking Status: Tobacco use Status Tobacco use date assessed 06/29/24 07/13/24 11:26 Patient Tobacco Use Status Former Tobacco user 07/13/24 11:26 e-Cigarette/Vaping Use Never Used 07/13/24 11:26 Thrive Assessment: Date of Thrive Assessment Date Thrive assessed 07/13/24 07/13/24 13:12 Currently or been in a relationship where the following occur: I choose not to answer Const Orientation/consciousness: patient oriented x3 HENMT Ears: hearing grossly normal bilaterally Neck Thyroid: Thyroid normal Lymphatic: no lymphadenopathy noted Resp Auscultation: clear to auscultation bilaterally Cardio Rate: regular rate Rhythm: regular rhythm Heart sounds: S1 normal heart sound present and S2 normal heart sound present GI Inspection: Yes normal to inspection Palpation (GI): Soft to palpation and Other GI palpation findings present (nontender, no cva tenderness) Auscultation: normoactive bowel sounds Rectal Exam - Male: Yes deferred Skin General skin exam: no rashes or lesions noted Neuro General: patient oriented x3, gait normal and no focal motor deficits Results Reviewed Results Reviewed: MR/MR abdomen wo/w con IMPRESSION: Findings consistent with a 1.4 x 1.0 cm hemangioma in the posterior segment of the right lobe of the liver corresponding to the larger lesion noted on abdominal ultrasound. The smaller lesion is too small to accurately characterize. Coding Level of Care Code Est Pt Level 4 (26707) Complex EM visit Add On G2211 Diagnoses Atypical chest pain R07.89 Elevated LFTs R79.89 HTN (hypertension) I10 GERD (gastroesophageal reflux disease) K21.9 Assessment & Plan Assessment & Plan (1) Atypical chest pain: Code(s): R07.89 - Other chest pain Category: Medical Plan: Paperwork filled out. Stable. (2) Elevated LFTs: Code(s): R79.89 - Other specified abnormal findings of blood chemistry Category: Medical Plan: We will be seeing GI. Abdominal MRI reviewed with patient. (3) HTN (hypertension): Code(s): I10 - Essential (primary) hypertension Category: Medical Plan: WNL. Continue current regimen (4) GERD (gastroesophageal reflux disease): Code(s): K21.9 - Gastro-esophageal reflux disease without esophagitis Category: Medical Plan: continue omeprazole.
--- OUTSIDE RECORDS SUMMARY | 2024-07-13 13:55 | XMS_ITS | Clinical Summary ---
Author Organization [facility] Address [address] [place] [address] Phone Care Team Providers Care Jacker Name Role Phone Zofia Lyon Primary Care Provider [phone] Allergies No known active allergies Medications methocarbamoL (ROBAXIN) 750 mg tablet Take 1 tablet (750 mg total) by mouth 4 (four) times a day for 10 days. 40 each 06/21/2024 Active Encounters Date Type Department Care Team Description 06/21/2024 7:35 AM EST - 06/21/2024 11:09 AM EST Emergency [facility] Emergency [address] [place] [address] Kyrie Villalpando DO Other chest [...] Health Screening 04/05/2022 COVID-19 Vaccine ( - 2023- season) 2024 Influenza Vaccine (#1) 2024 Depression [...] Signed Date: 06/21/2024 09:44 ET Workstation ID: [id number] Transcribed By: Self Edit Transcribed Date: 06/21/2024 [...] Signed Date: 06/21/2024 09:44 ET Workstation ID: [id number] Transcribed By: Self Edit Transcribed Date: 06/21/2024 09:35 ET Kyrie Villalpando DO IMG CT PROCEDURES Final Result * Troponin I high sensitivity (06/21/2024 4:14 AM EST) Only the most recent of2 resultswithin the time period is included. Pathologist [facility] High Sensitivity Troponin I 8 <=79 ng/L LAB CHEMISTRY METHOD 06/21/2024 4:41 AM EST [facility] Blood Venous blood specimen / Unknown Venipuncture / Unknown 06/21/2024 4:14 AM EST 06/21/2024 4:17 AM EST Narrative [facility] - 06/21/2024 4:41 AM EST High levels of biotin in samples may falsely decrease hsTroponin values. ??Use caution when interpreting hsTroponin results in patients taking biotin who exhibit renal impairment (eGFR <60) or in patients taking more than 20 mg/day of biotin. us Kyrie Villalpando DO LAB BLOOD ORDERABLES Final Res ult [facility] [address] [place] [address], [place] [phone] * ECG 12 lead (06/21/2024 4:05 AM EST) [facility] Ventricular Rate ECG 77 BPM GEMUSE Atrial Rate 77 BPM GEMUSE P-R Interval 182 ms GEMUSE QRS Duration 90 ms GEMUSE Q-T Interval 346 ms GEMUSE QTc 391 ms GEMUSE P Wave [place] 53 degrees GEMUSE R [place] 36 degrees GEMUSE T [place] 45 degrees GEMUSE ECG Interpretation Normal sinus [...] Signed Date: 06/21/2024 09:06 ET Workstation ID: [id number] Transcribed By: Self Edit Transcribed Date: 06/21/2024 [...] Signed Date: 06/21/2024 09:06 ET Workstation ID: [id number] Transcribed By: Self Edit Transcribed Date: 06/21/2024 08:59 ET Kyrie Villalpando DO IMG XR PROCEDURES Final Result * (ABNORMAL) CBC auto differential (06/21/2024 2:40 AM EST) [facility] WBC 9.3 4.8 - 10.8 K/mcL LAB HEMETOLOGY METHOD 06/21/2024 2:49 AM [facility] RBC 4.20(L) 4.50 - 5.50 M/mcL LAB HEMETOLOGY METHOD 06/21/2024 2:49 AM [facility] Hemoglobin 13.3(L) 13.5 - 17.5 g/dL LAB HEMETOLOGY METHOD 06/21/2024 2:49 AM [facility] Hematocrit 41.1(L) 42.0 - 54.0 % LAB HEMETOLOGY METHOD 06/21/2024 2:49 AM [facility] MCV 97.2 79.0 - 98.0 FL LAB HEMETOLOGY METHOD 06/21/2024 2:49 AM [facility] MCH 31.4 27.0 - 32.0 pcg LAB HEMETOLOGY METHOD 06/21/2024 2:49 AM [facility] MCHC 32.4 32.0 - 37.0 g/dL LAB HEMETOLOGY METHOD 06/21/2024 2:49 AM [facility] RDW 11.9 11.0 - 15.0 % LAB HEMETOLOGY METHOD 06/21/2024 2:49 AM [facility] Platelets 239 130 - 400 K/mcL LAB HEMETOLOGY METHOD 06/21/2024 2:49 AM [facility] MPV 9.7 7.0 - 11.0 FL LAB HEMETOLOGY METHOD 06/21/2024 2:49 AM [facility] NRBC 0.0 <1.0 % LAB HEMETOLOGY METHOD 06/21/2024 2:49 AM [facility] NRBC Absolute 0.00 <0.10 K/mcL LAB HEMETOLOGY METHOD 06/21/2024 2:49 AM [facility] Neutrophils Relative 54.0 % LAB HEMETOLOGY METHOD 06/21/2024 2:49 AM [facility] Lymphocytes Relative 34.8 % LAB HEMETOLOGY METHOD 06/21/2024 2:49 AM [facility] Monocytes Relative 8.5 % LAB HEMETOLOGY METHOD 06/21/2024 2:49 AM [facility] Eosinophils Relative 1.4 % LAB HEMETOLOGY METHOD 06/21/2024 2:49 AM [facility] Basophils Relative 0.5 % LAB HEMETOLOGY METHOD 06/21/2024 2:49 AM [facility] Immature Granulocytes Relative 0.8 % LAB HEMETOLOGY METHOD 06/21/2024 2:49 AM [facility] Neutrophils Absolute 5.00 1.50 - 7.00 K/mcL LAB HEMETOLOGY METHOD 06/21/2024 2:49 AM [facility] Lymphocytes Absolute 3.22 1.00 - 5.00 K/mcL LAB HEMETOLOGY METHOD 06/21/2024 2:49 AM [facility] Monocytes Absolute 0.79 0.20 - 1.00 K/mcL LAB HEMETOLOGY METHOD 06/21/2024 2:49 AM [facility] Eosinophils Absolute 0.13 0.00 - 0.50 K/mcL LAB HEMETOLOGY METHOD 06/21/2024 2:49 AM [facility] Basophils Absolute 0.05 0.00 - 0.20 K/mcL LAB HEMETOLOGY METHOD 06/21/2024 2:49 AM [facility] Immature Granulocytes Absolute 0.07(H) 0.00 - 0.03 K/mcL LAB HEMETOLOGY METHOD 06/21/2024 2:49 AM [facility] Blood Venous blood specimen / Unknown Venipuncture / Unknown 06/21/2024 2:40 AM EST 06/21/2024 2:45 AM EST us Kyrie Villalpando DO LAB BLOOD ORDERABLES Final Res ult Performing Organization Address [facility]/ZIP Co de Phone Number [facility] [address] [place] [address], [place] [phone] * Magnesium (06/21/2024 2:40 AM EST) [facility] Magnesium 2.1 1.9 - 2.6 mg/dL LAB CHEMISTRY METHOD 06/21/2024 3:08 AM EST [facility] Blood Venous blood specimen / Unknown Venipuncture / Unknown 06/21/2024 2:40 AM EST 06/21/2024 2:45 AM EST us Kyrie Villalpando DO LAB BLOOD ORDERABLES Final Res ult Performing Organization Address [facility]/ZIP Co de Phone Number [facility] [address] [place] [address], [place] [phone] * Lipase (06/21/2024 2:40 AM EST) [facility] Lipase 56 13 - 75 unit/L LAB CHEMISTRY METHOD 06/21/2024 3:08 AM EST [facility] Blood Venous blood specimen / Unknown Venipuncture / Unknown 06/21/2024 2:40 AM EST 06/21/2024 2:45 AM EST us Kyrie Villalpando DO LAB BLOOD ORDERABLES Final Res ult Performing Organization Address City/[facility]/ZIP Co de Phone Number [facility] [address] [place] [address], [place] [phone] * (ABNORMAL) Comprehensive metabolic panel (06/21/2024 2:40 AM EST) [facility] Sodium 138 133 - 145 mmol/L LAB CHEMISTRY METHOD 06/21/2024 3:08 AM [facility] Potassium 3.9 3.5 - 5.5 mmol/L LAB CHEMISTRY METHOD 06/21/2024 3:08 AM [facility] Chloride 105 96 - 110 mmol/L LAB CHEMISTRY METHOD 06/21/2024 3:08 AM [facility] CO2 30 21 - 32 mmol/L LAB CHEMISTRY METHOD 06/21/2024 3:08 AM [facility] Anion Gap 3 3 - 11 LAB CHEMISTRY METHOD 06/21/2024 3:08 AM [facility] Glucose 100 70 - 100 mg/dL LAB CHEMISTRY METHOD 06/21/2024 3:08 AM [facility] BUN 15 5 - 25 mg/dL LAB CHEMISTRY METHOD 06/21/2024 3:08 AM [facility] Creatinine 1.24 0.70 - 1.30 mg/dL LAB CHEMISTRY METHOD 06/21/2024 3:08 AM [facility] eGFR 75 >=60 mL/min/1. 73m2 LAB CHEMISTRY METHOD 06/21/2024 3:08 AM [facility] Comment:Calculation based on the??Chronic Kidney Disease Epidemiology Collaboration (CKD-EPI) equation refit??without adjustment for race. BUN/Creatinine Ratio 12.1 LAB CHEMISTRY METHOD 06/21/2024 3:08 AM [facility] Calcium 9.5 8.5 - 10.5 mg/dL LAB CHEMISTRY METHOD 06/21/2024 3:08 AM [facility] AST (SGOT) 50(H) 10 - 42 unit/L LAB CHEMISTRY METHOD 06/21/2024 3:08 AM [facility] ALT (SGPT) 77(H) 10 - 60 unit/L LAB CHEMISTRY METHOD 06/21/2024 3:08 AM [facility] Alkaline Phosphatase 82 42 - 121 unit/L LAB CHEMISTRY METHOD 06/21/2024 3:08 AM EST [facility] Total Protein 7.1 6.0 - 8.0 g/dL LAB CHEMISTRY METHOD 06/21/2024 3:08 AM EST [facility] Albumin 3.8 3.2 - 5.0 g/dL LAB CHEMISTRY METHOD 06/21/2024 3:08 AM EST [facility] Total Bilirubin 0.7 0.0 - 1.4 mg/dL LAB CHEMISTRY METHOD 06/21/2024 3:08 AM EST [facility] Blood Venous blood specimen / Unknown Venipuncture / Unknown 06/21/2024 2:40 AM EST 06/21/2024 2:45 AM EST us Kyrie Villalpando DO LAB BLOOD ORDERABLES Final Res ult [facility] [address] [place] [address], from Last 3 Months Insurance [facility] Care Teams Jacker Relationship Specialty Start Date End Date Zofia Lyon PA [address] [place] [address] PCP - General Physician Circular Shear Operator 06/21/24
--- OUTSIDE RECORDS SUMMARY | 2024-07-13 13:55 | XMS_ITS | Encounter Summary ---
Author Organization [facility] [place] [address] Care Team Providers Care Air Value Tester Name Role Phone Zofia Lyon Primary Care Provider [phone] Reason for Visit * Reason Comments Chest Pain CHEST PAIN FOR YEARS Encounter Details Date Type Department Care Team (Late st Contact Info) Description 06/21/2024 7:35 AM EST - 06/21/2024 11:09 AM EST Emergency [facility] Emergency [address] [place] [address] Kyrie Villalpando, DO [address] [place] [address] Other chest pain (Primary Dx); Acute cough; [...] be sent through Care Everywhere. * Nosebleeds (Polish) * Cough (Polish) documented in this encounter Medications at Time of Discharge methocarbamoL (ROBAXIN) 750 mg tablet Take 1 tablet (750 mg total) by mouth 4 (four) times a day for 10 days. 40 each 06/21/2024 documented as of this encounter Ordered Prescriptions Prescription Sig Dispense Quantity Refills Last Filled Start Date End Date methocarbamoL (ROBAXIN) 750 mg tablet Take 1 tablet (750 mg total) by mouth 4 (four) times a day for 10 days. 40 each 06/21/2024 documented in this encounter Discharge Disposition Disposition Code Departure Means Destination Comment s Home or Self Correction documented in this encounter Progress Notes * [...] or thromboembolic disease. He denies any illicit druguse. No other acute complaints. ROS: I have [...] Triage Vitals Temp Heart Rate Resp BP 06/21/243 06/21/2423206/21/2423206/21/24232 36.8 ??C (98.2 ??F) 78 18 129/76 SpO2 Temp Source Heart Rate Source Patient Position 06/21/2423206/21/24232 -- 06/21/24621 98 % Oral Sitting BP Location FiO2 (%) 06/21/24 0622 -- Right arm General: Alert and oriented x 3, nontoxic, well-appearing, in no acute distress. Pleasant. Well-appearing, well nourished. Conversing and following commands appropriately with clear sensorium. HEENT: [place] and moist mucosa. No active nasal bleeding [...] Procedure Abnormality Status --------- ------ CBC auto differential[[id number]] Abnormal Final result Please view results for [...] Signed Date: 06/21/2024 09:44 ET Workstation ID: [id number] Transcribed By: Self Edit Transcribed Date: 06/21/2024 09:35 ET XR Chest 2 Views Final Result Normal chest radiographs. -------- FINAL REPORT -------- Dictated By: Luke Millan Dictated Date: 06/21/2024 08:59 ET Assigned Physician: Luke Millan Reviewed and Electronically Signed By: Luke Millan Signed Date: 06/21/2024 09:06 ET Workstation ID: [id number] Transcribed By: Self Edit Transcribed Date: 06/21/2024 [...] Attestation Kyrie Villalpando DO 06/21/24 0833 Kyrie Villalpando DO 06/21/24 1022 documented in this encounter [...] Signed Date: 06/21/2024 09:44 ET Workstation ID: [id number] Transcribed By: Self Edit Transcribed Date: 06/21/2024 [...] Signed Date: 06/21/2024 09:44 ET Workstation ID: [id number] Transcribed By: Self Edit Transcribed Date: 06/21/2024 [...] ORDERABLES Final Res ult Performing Organization Address [facility] de Phone Number [facility] ([facility]) [facility] [address] [place] [address], [place] [phone] * ECG 12 lead (06/21/2024 4:05 AM EST) Ventricular Rate ECG 77 BPM GEMUSE Atrial Rate 77 BPM GEMUSE P-R Interval 182 ms GEMUSE QRS Duration 90 ms GEMUSE Q-T Interval 346 ms GEMUSE QTc 391 ms GEMUSE P Wave [place] 53 degrees GEMUSE R [place] 36 degrees GEMUSE T [place] 45 degrees GEMUSE ECG Interpretation Normal sinus rhythm When compared with ECG of 18-OCT-2020 03:07, No significant change was found Confirmed by MICHAEL STANLEY ([id number]) on 06/21/2024 8:06:10 PM GEMUSE 06/21/2024 4:05 AM EST 06/21/2024 8:06 PM EST Kyrie Villalpando DO ECG ORDERABLES Final Result Performing Organization Address [facility] de Phone Number GEMUSE * XR Chest [...] Signed Date: 06/21/2024 09:06 ET Workstation ID: [id number] Transcribed By: Self Edit Transcribed Date: 06/21/2024 [...] Signed Date: 06/21/2024 09:06 ET Workstation ID: [id number] Transcribed By: Self Edit Transcribed Date: 06/21/2024 08:59 ET Kyrie Villalpando DO IMG XR PROCEDURES Final Result * (ABNORMAL) CBC auto differential (06/21/2024 2:40 AM EST) [facility] WBC 9.3 4.8 - 10.8 K/mcL LAB HEMETOLOGY METHOD 06/21/2024 2:49 AM [facility] RBC 4.20(L) 4.50 - 5.50 M/mcL LAB HEMETOLOGY METHOD 06/21/2024 2:49 AM [facility] Hemoglobin 13.3(L) 13.5 - 17.5 g/dL LAB HEMETOLOGY METHOD 06/21/2024 2:49 AM [facility] Hematocrit 41.1(L) 42.0 - 54.0 % LAB HEMETOLOGY METHOD 06/21/2024 2:49 AM [facility] MCV 97.2 79.0 - 98.0 FL LAB HEMETOLOGY METHOD 06/21/2024 2:49 AM [facility] MCH 31.4 27.0 - 32.0 pcg LAB HEMETOLOGY METHOD 06/21/2024 2:49 AM [facility] MCHC 32.4 32.0 - 37.0 g/dL LAB HEMETOLOGY METHOD 06/21/2024 2:49 AM [facility] RDW 11.9 11.0 - 15.0 % LAB HEMETOLOGY METHOD 06/21/2024 2:49 AM [facility] Platelets 239 130 - 400 K/mcL LAB HEMETOLOGY METHOD 06/21/2024 2:49 AM [facility] MPV 9.7 7.0 - 11.0 FL LAB HEMETOLOGY METHOD 06/21/2024 2:49 AM [facility] NRBC 0.0 <1.0 % LAB HEMETOLOGY METHOD 06/21/2024 2:49 AM [facility] NRBC Absolute 0.00 <0.10 K/mcL LAB HEMETOLOGY METHOD 06/21/2024 2:49 AM [facility] Neutrophils Relative 54.0 % LAB HEMETOLOGY METHOD 06/21/2024 2:49 AM [facility] Lymphocytes Relative 34.8 % LAB HEMETOLOGY METHOD 06/21/2024 2:49 AM [facility] Monocytes Relative 8.5 % LAB HEMETOLOGY METHOD 06/21/2024 2:49 AM [facility] Eosinophils Relative 1.4 % LAB HEMETOLOGY METHOD 06/21/2024 2:49 AM [facility] Basophils Relative 0.5 % LAB HEMETOLOGY METHOD 06/21/2024 2:49 AM [facility] Immature Granulocytes Relative 0.8 % LAB HEMETOLOGY METHOD 06/21/2024 2:49 AM EST [facility] Neutrophils Absolute 5.00 1.50 - 7.00 K/mcL LAB HEMETOLOGY METHOD 06/21/2024 2:49 AM EST [facility] Lymphocytes Absolute 3.22 1.00 - 5.00 K/mcL LAB HEMETOLOGY METHOD 06/21/2024 2:49 AM EST [facility] Monocytes Absolute 0.79 0.20 - 1.00 K/mcL LAB HEMETOLOGY METHOD 06/21/2024 2:49 AM EST [facility] Eosinophils Absolute 0.13 0.00 - 0.50 K/mcL LAB HEMETOLOGY METHOD 06/21/2024 2:49 AM EST [facility] Basophils Absolute 0.05 0.00 - 0.20 K/mcL LAB HEMETOLOGY METHOD 06/21/2024 2:49 AM [facility] Immature Granulocytes Absolute 0.07(H) 0.00 - 0.03 K/mcL LAB HEMETOLOGY METHOD 06/21/2024 2:49 AM EST [facility] Blood Venous blood specimen / Unknown Venipuncture / Unknown 06/21/2024 2:40 AM EST 06/21/2024 2:45 AM EST us Kyrie Villalpadno DO LAB BLOOD ORDERABLES Final Res ult [facility] [address] [place] [address], * Magnesium (06/21/2024 2:40 AM EST) Magnesium 2.1 1.9 - 2.6 mg/dL LAB CHEMISTRY METHOD 06/21/2024 3:08 AM EST [facility] Blood Venous blood specimen / Unknown Venipuncture / Unknown 06/21/2024 2:40 AM EST 06/21/2024 2:45 AM EST us Kyrie Villalpando DO LAB BLOOD ORDERABLES Final Res ult Performing Organization Address [facility]/ZIP Co de Phone Number [facility] [address] [place] [address], [place] [phone] * Lipase (06/21/2024 2:40 AM EST) Lipase 56 13 - 75 unit/L LAB CHEMISTRY METHOD 06/21/2024 3:08 AM [facility] Blood Venous blood specimen / Unknown Venipuncture / Unknown 06/21/2024 2:40 AM EST 06/21/2024 2:45 AM EST Kyrie Villalpando DO LAB BLOOD ORDERABLES Final Res ult Performing Organization Address [facility] Co de Phone Number [facility] [address] [place] [address], [place] [phone] * (ABNORMAL) Comprehensive metabolic panel (06/21/2024 2:40 AM EST) Pathologist [facility] Sodium 138 133 - 145 mmol/L LAB CHEMISTRY METHOD 06/21/2024 3:08 AM [facility] Potassium 3.9 3.5 - 5.5 mmol/L LAB CHEMISTRY METHOD 06/21/2024 3:08 AM [facility] Chloride 105 96 - 110 mmol/L LAB CHEMISTRY METHOD 06/21/2024 3:08 AM [facility] CO2 30 21 - 32 mmol/L LAB CHEMISTRY METHOD 06/21/2024 3:08 AM [facility] Anion Gap 3 3 - 11 LAB CHEMISTRY METHOD 06/21/2024 3:08 AM [facility] Glucose 100 70 - 100 mg/dL LAB CHEMISTRY METHOD 06/21/2024 3:08 AM [facility] BUN 15 5 - 25 mg/dL LAB CHEMISTRY METHOD 06/21/2024 3:08 AM [facility] Creatinine 1.24 0.70 - 1.30 mg/dL LAB CHEMISTRY METHOD 06/21/2024 3:08 AM [facility] eGFR 75 >=60 mL/min/1. 73m2 LAB CHEMISTRY METHOD 06/21/2024 3:08 AM [facility] Comment:Calculation based on the??Chronic Kidney Disease Epidemiology Collaboration (CKD-EPI) equation refit??without adjustment for race. BUN/Creatinine Ratio 12.1 LAB CHEMISTRY METHOD 06/21/2024 3:08 AM [facility] Calcium 9.5 8.5 - 10.5 mg/dL LAB CHEMISTRY METHOD 06/21/2024 3:08 AM [facility] AST (SGOT) 50(H) 10 - 42 unit/L LAB CHEMISTRY METHOD 06/21/2024 3:08 AM [facility] ALT (SGPT) 77(H) 10 - 60 unit/L LAB CHEMISTRY METHOD 06/21/2024 3:08 AM [facility] Alkaline Phosphatase 82 42 - 121 unit/L LAB CHEMISTRY METHOD 06/21/2024 3:08 AM [facility] Total Protein 7.1 6.0 - 8.0 g/dL LAB CHEMISTRY METHOD 06/21/2024 3:08 AM [facility] Albumin 3.8 3.2 - 5.0 g/dL LAB CHEMISTRY METHOD 06/21/2024 3:08 AM [facility] Total Bilirubin 0.7 0.0 - 1.4 mg/dL LAB CHEMISTRY METHOD 06/21/2024 3:08 AM [facility] Blood Venous blood specimen / Unknown Venipuncture / Unknown 06/21/2024 2:40 AM EST 06/21/2024 2:45 AM EST us Kyrie Villalpando DO LAB BLOOD ORDERABLES Final Res ult [facility] [address] [place] [address], * Troponin I high sensitivity (06/21/2024 2:40 AM EST) High Sensitivity Troponin I 5 <=79 ng/L LAB CHEMISTRY METHOD 06/21/2024 3:08 AM EST [facility] Blood Venous blood specimen / Unknown Venipuncture / Unknown 06/21/2024 2:40 AM EST 06/21/2024 2:45 AM EST Narrative [facility] - 06/21/2024 3:08 AM EST High levels of biotin in samples may falsely decrease hsTroponin values. ??Use caution when interpreting hsTroponin results in patients taking biotin who exhibit renal impairment (eGFR <60) or in patients taking more than 20 mg/day of biotin. Kyrie Villalpando DO LAB BLOOD ORDERABLES Final Res ult [facility] [address] [place] [address], documented in this encounter Visit Diagnoses Diagnosis [...] 06/21/2024 documented in this encounter Care Teams Air Value Tester Relationship Specialty Start Date End Date Zofia Lyon PA [address] [place] [address] PCP - General Physician Chemical Equipment Sales Engineer 06/21/24 documented as of this encounter
--- OUTSIDE RECORDS SUMMARY | 2024-07-13 13:56 | XMS_ITS | Clinical Summary ---
Author Organization [facility] Address [address] [place] [address] Care Team Providers Care Membership Manager Name Role Phone Ben Grant MD Primary Care Provider [phone] Source Comments PLEASE NOTE, if this patient [...] 3 - 19 + 3-dose series) 2001 [id number] () 01/02/2024 Imm-Influenza (#1) 2024 Alcohol and [...] EDT) GLUCOSE 92 65 - 99 mg/dL [employer] [facility] Comment: ?Fasting reference interval UREA NITROGEN (BUN) 12 7 - 25 mg/dL [employer] [facility] CREATININE (blood) 1.10 0.60 - 1.29 mg/dL [employer] [facility] EGFR 86 > OR = 60 mL/min/1. 73m2 [facility] [facility] BUN/CREATININE RATIO SEE NOTE: [employer] [facility] Comment: ?? Not Reported: BUN and Creatinine are within ?? reference range. ? SODIUM 139 135 - 146 mmol/L [employer] [facility] POTASSIUM 4.1 3.5 - 5.3 mmol/L [employer] [facility] CHLORIDE 103 98 - 110 mmol/L [employer] [facility] CARBON DIOXIDE 30 20 - 32 mmol/L [facility] [facility] CALCIUM 9.3 8.6 - 10.3 mg/dL [facility] [facility] PROTEIN, TOTAL 7.2 6.1 - 8.1 g/dL [facility] [facility] ALBUMIN 4.3 3.6 - 5.1 g/dL [facility] [facility] GLOBULIN 2.9 1.9 - 3.7 g/dL (calc) [facility] ALBUMIN/GLOBULI N RATIO 1.5 1.0 - 2.5 (calc) [facility] BILIRUBIN, TOTAL 1.1 0.2 - 1.2 mg/dL [employer] [facility] ALKALINE PHOSPHATASE 75 36 - 130 U/L [employer] [facility] AST 27 10 - 40 U/L [employer] [facility] ALT 34 9 - 46 U/L [employer] [facility] Blood Blood / Unknown 11/26/2023 1 1:19 AM EDT 11/26/2023 11:19 AM EDT Ben Grant MD LAB - BLOOD DRAW Edited Result - Final Performing Organization Address [facility]/ZIP Co de Phone Number [employer] [address] [address], [employer] [address] [address] * (ABNORMAL) LIPIDS W RFLX TO DIRECT LDL (11/15/2023 10:25 AM EDT) CHOLESTEROL, TOTAL 200(H) <200 mg/dL [facility] [facility] HDL CHOLESTEROL 46 > OR = 40 mg/dL [facility] [facility] TRIGLYCERIDES 76 <150 mg/dL [facility] [facility] LDL-CHOLESTEROL 137(H) 99 mg/dL (calc) [facility] [employer] [facility] Comment: Reference range: <100 Desirable range <100 mg/dL for primary prevention; ?? <70 mg/dL for patients with CHD or diabetic patients with > or = 2 CHD risk factors. LDL-C is now calculated using the David-Cassandra calculation, which is a validated novel method providing better accuracy than the Friedewald equation in the estimation of LDL-C. David SS et al. SIL. 2013;310(19): 3529-3104 (http://education.Intelipost/faq/TPN428) CHOL/HDLC RATIO 4.3 <5.0 (calc) [facility] [employer] [facility] NON-HDL CHOLESTEROL 154(H) <130 mg/dL (calc) [facility] [facility] Comment: For patients with diabetes plus 1 major ASCVD risk factor, treating to a non-HDL-C goal of <100 mg/dL (LDL-C of <70 mg/dL) is considered a therapeutic option. Blood Blood / Unknown 11/15/2023 1 0:25 AM EDT 11/15/2023 10:28 AM EDT Narrative [employer] [facility] - 11/16/2023 4:26 AM EDT FASTING:YES us Ben Grant MD LAB - BLOOD DRAW Edited Result - Final Performing Organization Address City/[facility]/ZIP Co de Phone Number [employer] [address] [place] [address], [employer] [facility] [address] [place] [address] * HEPATITIS C AB W/RFLX HCV RNA, QT, RT PCR (01/29/2021 9:21 AM EDT) Pathologist [facility] [place] HEPATITIS C ANTIBODY NON-REACT RADHA NON-REACT RADHA [employer] [facility] SIGNAL TO CUT-OFF 0.01 <1.00 [employer] Comment: HCV antibody was non-reactive. There is no laboratory evidence of HCV infection. In most cases, no further action is required. However, if recent HCV exposure is suspected, a test for HCV RNA (test code 97001) is suggested. For additional information please refer to http://education.DeliveryEdge/faq/DEA53d3 (This link is being provided for informational/ educational purposes only.) Blood Blood / Unknown 01/29/2021 9 :21 AM EDT 01/29/2021 9:21 AM EDT Narrative [employer] - 01/30/2021 12:19 AM EDT FASTING:YES Ben Grant MD LAB - BLOOD DRAW Edited Result - Final [facility] [address] [address], [employer] [address] [place] [address],[place] [address] * HIV-1 & HIV-2 ANTIBODIES (11/18/2017 1:41 PM EDT) [facility] HIV 1 AND 2 ANTIBODY SCREEN NEGATIVE NEGATIVE [facility] Comment: This assay is a [...] PM EDT 11/18/2017 1:46 PM EDT [facility]ative [facility] - 11/18/2017 10:16 PM EDT [facility] [employer] [address] [place] [address] PT ID [id number] ORD# [id number] us Ben Grant MD LAB - BLOOD DRAW Final Result [facility] [address] [place] [address], from Last 3 Months or Most Recently Relevant to Health Maintenance Insurance ADDI CORTEZ/LISA SAN Member Subscriber Plan / Payer (Ef fective 2019-Present) Name:Chintan Moralez Relation to Subscriber:Self Name:Chintan Moralez Payer ID:[id number] Type:Indemnity Address: [address] [address] Care Teams Membership Manager Relationship Specialty Start Date End Date Ben Grant MD [address] [place] [address] PCP - General Internal Medicine 07/21/17
== END 2024-07-13 12:16 | disposition home or self-care (01) ==
LOC: HO.HMCFM 10:53
PROVIDERS: PCP Physician Assistant; Visit Provider Physician Assistant
DX: R07.89 Other chest pain (principal); R79.89 Other specified abnormal findings of blood chemistry; I10 Essential (primary) hypertension; K21.9 Gastro-esophageal reflux disease without esophagitis

== ENCOUNTER → 2024-07-13 10:53 | Outpatient (BNVA) | payer BC, SELFPAY | PROVIDERS: PCP Physician Assistant; Visit Provider Physician Assistant ==

== ENCOUNTER → 2024-07-25 07:56 | Outpatient (REF) | payer BC, SELFPAY ==
--- NOTE | 2024-07-25 08:01 | CA_ITS ---
Acquisition Time: 2024-07-25 09:10:04 Total Exercise Time: 00:07:14 Test Indications: CP Medications: SEE H&P Protocol: SHAHRIAR Max HR: 153 BPM 85% of Pred: 179 BPM Max BP: 188/74 mmHG Max Work Load: 8.9 METS Exercise Stress Test with exercise with exercise 7 mins 14 secs of Shahriar Protocol, achieving 85% MPHR, with reports of mild SOB and 10/10 mid chest sharp/ burning pain that progressed slowly during exercise and resolved quickly into early recovery, without any arrythmias, with normotensive response to exercise. Without EKG changes meeting criteria for ischemia. In recovery around 6 mins, pt reported left upper chest discomfort at 1/10 that resolved as well. Recommend stress echo to further evaluate the chest pain. Test reviewed with Dr. Hargrove. Referred By: Zofia Lyon Electronically Signed By: Ousmane Arguelles
--- NOTE | 2024-07-25 08:01 | CA_ITS ---
Transthoracic Echocardiogram Patient (Last, First, Middle): Chintan Moralez, Gender: Male Date of : 1980 Age: 43 Procedure Date: 07/25/2024 Procedure Type: Transthoracic Echocardiogram Location: OP Height: 165.1 cm Weight: 77.11 kg BSA: 1.85 m2 Heart Rate: bpm Desizing Machine Offbearer: RIYA Referring MD: Zofia Lyon PA-C Training Technician: Terrance Hargrove MD Symptoms: R94.31 - Abnormal electrocardiogram [ECG] [EKG] Study Quality: Fair ECG Rhythm: Sinus Conclusions: - Essentially normal study with grade 1 diastolic dysfunction Findings Left Ventricle Normal left ventricular size, thickness, and systolic function. The visually estimated ejection fraction is between 60-65%. Spectral Doppler is indicative of an impaired relaxation filling pattern. E/E prime ratio is <8, consistent with normal filling pressures. Evidence suggests grade I (mild) diastolic dysfunction. Right Ventricle Normal right ventricular cavity size and systolic function. Atria Both atria are normal in size. There is no evidence of interatrial shunt. Aortic Valve Normal aortic valve structure and function. There is no aortic valve stenosis. There is no aortic valve regurgitation. Mitral Valve Normal mitral valve structure and function. There is trace mitral valve regurgitation. There is no mitral valve stenosis. Pulmonic Valve The pulmonic valve is likely normal. There is trace pulmonic valve regurgitation. Tricuspid Valve Normal tricuspid valve structure. Tricuspid regurgitation envelope is inadequate for calculation of right ventricular systolic pressure. Normal right atrial pressure. Great Vessels All visible segments of the aorta are normal in size. The pulmonary artery was not well visualized. Venous The inferior vena cava is normal in size and collapses greater than 50% with inspiration. Pericardium/Pleural There is no evidence of pericardial effusion. Prior Study Comparison No prior study available for comparison. Measurements 2D Linear Measurements IVSd: 0.93 0.6-0.9/0.6-1.0 cm LVIDd: 3.90 3.9-5.3/4.2-5.9 cm LVIDd Index: 2.11 2.4-3.2/2.2-3.1 cm/m2 LVIDs: 2.48 2.0-3.6 cm LVPWd: 1.00 0.7-1.1 cm LA Diam: 3.10 2.7-3.8/3.0-4.0 cm LAIDs Index: 1.68 1.5-2.3 cm/m2 LV Mass: 144.81 67-162/88-224 g LV Mass Index: 78.28 43-95/49-115 g/m2 LVOT Diam: 2.00 3.0+(-)1.3 cm 2D Systolic Function EF 4C: 64.60 >55% EF 2C: 60.00 >55% EF BiP: 60.90 >55% Mitral Valve MV Pk E: 0.80 MV PK A: 0.89 MV Decel Time: 135.00 E/A: 0.90 E'Lateral: 12.90 E'Medial: 8.38 E/E' Med: 9.50 E/E' Lat: 6.20 PHT: 39.00 MVA PHT: 5.64 Decel Lea: 5.93 Aortic Valve AoV Pk Mayco: 1.55 AoV Mn Mayco: 0.96 AoV VTI: 0.31 AoV Pk Grad: 10.00 Aov Mn Grad: 5.00 ASHANTI Cont.VTI: 2.51 LVOT LVOT Pk Mayco: 1.23 LVOT Mn Mayco: 0.75 LVOT VTI: 0.25 LVOT Pk Grad: 6.00 LVOT Mn Grad: 3.00 LVOT Diam: 2.00 LVOT Area: 3.14 Diastolic Function MV Pk E: 0.80 MV Pk A: 0.89 E/A: 0.90 E'Medial: 8.38 E/E' Med: 9.50 E' Laterial: 12.90 E/E' Lat: 6.20 Right Ventricle TAPSE (mm): 27.80 TVS' Mayco: 14.40 Tricuspid Valve TR Pk Mayco: 1.78 TR Pk Grad: 13.00 Great Vessels Aorta Sinus of Valsalva: 2.60 2.0-3.5 cm Ao Asc: 3.00 2.1-3.4 cm Pulmonary Valve PV Pk Mayco: 1.17 Peak PV Grad: 5.00 Updated in Other Vendor System with Status of Final Terrance Hargrove MD electronically signed on 07/26/2024 2:17:57 PM with status of Final
--- OUTSIDE RECORDS SUMMARY | 2024-07-25 08:06 | XMS_ITS | Clinical Summary ---
Author Organization [facility] Address [address] [place] [address] Phone Care Team Providers Care Upper Marker Name Role Phone Zofia Lyon Primary Care Provider [phone] Allergies No known active allergies Medications methocarbamoL (ROBAXIN) 750 mg tablet Take 1 tablet (750 mg total) by mouth 4 (four) times a day for 10 days. 40 each 06/21/2024 Active Encounters Date Type Department Care Team Description 06/21/2024 7:35 AM EST - 06/21/2024 11:09 AM EST Emergency [facility] [address] [place] [address] Kyrie Villalpando DO Other chest [...] Signed Date: 06/21/2024 09:44 ET Workstation ID: [id number] Transcribed By: Self Edit Transcribed Date: 06/21/2024 [...] Signed Date: 06/21/2024 09:44 ET Workstation ID: [id number] Transcribed By: Self Edit Transcribed Date: 06/21/2024 09:35 ET Kyrie Villalpando DO IMG CT PROCEDURES Final Result * Troponin I high sensitivity (06/21/2024 4:14 AM EST) Only the most recent of2 resultswithin the time period is included. Pathologist [facility] High Sensitivity Troponin I 8 <=79 ng/L LAB CHEMISTRY METHOD 06/21/2024 4:41 AM EST [facility] Blood Venous blood specimen / Unknown Venipuncture / Unknown 06/21/2024 4:14 AM EST 06/21/2024 4:17 AM EST Narrative [facility] - 06/21/2024 4:41 AM EST High levels of biotin in samples may falsely decrease hsTroponin values. ??Use caution when interpreting hsTroponin results in patients taking biotin who exhibit renal impairment (eGFR <60) or in patients taking more than 20 mg/day of biotin. us Kyrie Villalpando DO LAB BLOOD ORDERABLES Final Res ult [facility] [address] [place] [address], [place] [phone] * ECG 12 lead (06/21/2024 4:05 AM EST) [facility] Ventricular Rate ECG 77 BPM GEMUSE Atrial Rate 77 BPM GEMUSE P-R Interval 182 ms GEMUSE QRS Duration 90 ms GEMUSE Q-T Interval 346 ms GEMUSE QTc 391 ms GEMUSE P Wave Edwards 53 degrees GEMUSE R Edwards 36 degrees GEMUSE T Edwards 45 degrees GEMUSE ECG Interpretation Normal sinus [...] Signed Date: 06/21/2024 09:06 ET Workstation ID: [id number] Transcribed By: Self Edit Transcribed Date: 06/21/2024 [...] Signed Date: 06/21/2024 09:06 ET Workstation ID: [id number] Transcribed By: Self Edit Transcribed Date: 06/21/2024 08:59 ET Kyrie Villalpando DO IMG XR PROCEDURES Final Result * (ABNORMAL) CBC auto differential (06/21/2024 2:40 AM EST) [facility] WBC 9.3 4.8 - 10.8 K/mcL LAB HEMETOLOGY METHOD 06/21/2024 2:49 AM [facility] RBC 4.20(L) 4.50 - 5.50 M/mcL LAB HEMETOLOGY METHOD 06/21/2024 2:49 AM [facility] Hemoglobin 13.3(L) 13.5 - 17.5 g/dL LAB HEMETOLOGY METHOD 06/21/2024 2:49 AM [facility] Hematocrit 41.1(L) 42.0 - 54.0 % LAB HEMETOLOGY METHOD 06/21/2024 2:49 AM [facility] MCV 97.2 79.0 - 98.0 FL LAB HEMETOLOGY METHOD 06/21/2024 2:49 AM [facility] MCH 31.4 27.0 - 32.0 pcg LAB HEMETOLOGY METHOD 06/21/2024 2:49 AM [facility] MCHC 32.4 32.0 - 37.0 g/dL LAB HEMETOLOGY METHOD 06/21/2024 2:49 AM [facility] RDW 11.9 11.0 - 15.0 % LAB HEMETOLOGY METHOD 06/21/2024 2:49 AM [facility] Platelets 239 130 - 400 K/mcL LAB HEMETOLOGY METHOD 06/21/2024 2:49 AM [facility] MPV 9.7 7.0 - 11.0 FL LAB HEMETOLOGY METHOD 06/21/2024 2:49 AM [facility] NRBC 0.0 <1.0 % LAB HEMETOLOGY METHOD 06/21/2024 2:49 AM [facility] NRBC Absolute 0.00 <0.10 K/mcL LAB HEMETOLOGY METHOD 06/21/2024 2:49 AM [facility] Neutrophils Relative 54.0 % LAB HEMETOLOGY METHOD 06/21/2024 2:49 AM [facility] Lymphocytes Relative 34.8 % LAB HEMETOLOGY METHOD 06/21/2024 2:49 AM [facility] Monocytes Relative 8.5 % LAB HEMETOLOGY METHOD 06/21/2024 2:49 AM [facility] Eosinophils Relative 1.4 % LAB HEMETOLOGY METHOD 06/21/2024 2:49 AM [facility] Basophils Relative 0.5 % LAB HEMETOLOGY METHOD 06/21/2024 2:49 AM [facility] Immature Granulocytes Relative 0.8 % LAB HEMETOLOGY METHOD 06/21/2024 2:49 AM [facility] Neutrophils Absolute 5.00 1.50 - 7.00 K/mcL LAB HEMETOLOGY METHOD 06/21/2024 2:49 AM [facility] Lymphocytes Absolute 3.22 1.00 - 5.00 K/mcL LAB HEMETOLOGY METHOD 06/21/2024 2:49 AM [facility] Monocytes Absolute 0.79 0.20 - 1.00 K/mcL LAB HEMETOLOGY METHOD 06/21/2024 2:49 AM [facility] Eosinophils Absolute 0.13 0.00 - 0.50 K/mcL LAB HEMETOLOGY METHOD 06/21/2024 2:49 AM [facility] Basophils Absolute 0.05 0.00 - 0.20 K/mcL LAB HEMETOLOGY METHOD 06/21/2024 2:49 AM [facility] Immature Granulocytes Absolute 0.07(H) 0.00 - 0.03 K/mcL LAB HEMETOLOGY METHOD 06/21/2024 2:49 AM [facility] Blood Venous blood specimen / Unknown Venipuncture / Unknown 06/21/2024 2:40 AM EST 06/21/2024 2:45 AM EST us Kyrie Villalpando DO LAB BLOOD ORDERABLES Final Res ult Performing Organization Address [facility]/ZIP Co de Phone Number [facility] [address] [place] [address], [place] [phone] * Magnesium (06/21/2024 2:40 AM EST) [facility] Magnesium 2.1 1.9 - 2.6 mg/dL LAB CHEMISTRY METHOD 06/21/2024 3:08 AM EST [facility] Blood Venous blood specimen / Unknown Venipuncture / Unknown 06/21/2024 2:40 AM EST 06/21/2024 2:45 AM EST us Kyrie Villalpando DO LAB BLOOD ORDERABLES Final Res ult Performing Organization Address [facility]/ZIP Co de Phone Number [facility] [address] [place] [address], [place] [phone] * Lipase (06/21/2024 2:40 AM EST) [facility] Lipase 56 13 - 75 unit/L LAB CHEMISTRY METHOD 06/21/2024 3:08 AM EST [facility] Blood Venous blood specimen / Unknown Venipuncture / Unknown 06/21/2024 2:40 AM EST 06/21/2024 2:45 AM EST us Kyrie Villalpando DO LAB BLOOD ORDERABLES Final Res ult Performing Organization Address City/[facility]/ZIP Co de Phone Number [facility] [address] [place] [address], [place] [phone] * (ABNORMAL) Comprehensive metabolic panel (06/21/2024 2:40 AM EST) [facility] Sodium 138 133 - 145 mmol/L LAB CHEMISTRY METHOD 06/21/2024 3:08 AM [facility] Potassium 3.9 3.5 - 5.5 mmol/L LAB CHEMISTRY METHOD 06/21/2024 3:08 AM [facility] Chloride 105 96 - 110 mmol/L LAB CHEMISTRY METHOD 06/21/2024 3:08 AM [facility] CO2 30 21 - 32 mmol/L LAB CHEMISTRY METHOD 06/21/2024 3:08 AM [facility] Anion Gap 3 3 - 11 LAB CHEMISTRY METHOD 06/21/2024 3:08 AM [facility] Glucose 100 70 - 100 mg/dL LAB CHEMISTRY METHOD 06/21/2024 3:08 AM [facility] BUN 15 5 - 25 mg/dL LAB CHEMISTRY METHOD 06/21/2024 3:08 AM [facility] Creatinine 1.24 0.70 - 1.30 mg/dL LAB CHEMISTRY METHOD 06/21/2024 3:08 AM [facility] eGFR 75 >=60 mL/min/1. 73m2 LAB CHEMISTRY METHOD 06/21/2024 3:08 AM [facility] Comment:Calculation based on the??Chronic Kidney Disease Epidemiology Collaboration (CKD-EPI) equation refit??without adjustment for race. BUN/Creatinine Ratio 12.1 LAB CHEMISTRY METHOD 06/21/2024 3:08 AM [facility] Calcium 9.5 8.5 - 10.5 mg/dL LAB CHEMISTRY METHOD 06/21/2024 3:08 AM [facility] AST (SGOT) 50(H) 10 - 42 unit/L LAB CHEMISTRY METHOD 06/21/2024 3:08 AM [facility] ALT (SGPT) 77(H) 10 - 60 unit/L LAB CHEMISTRY METHOD 06/21/2024 3:08 AM [facility] Alkaline Phosphatase 82 42 - 121 unit/L LAB CHEMISTRY METHOD 06/21/2024 3:08 AM EST [facility] Total Protein 7.1 6.0 - 8.0 g/dL LAB CHEMISTRY METHOD 06/21/2024 3:08 AM EST [facility] Albumin 3.8 3.2 - 5.0 g/dL LAB CHEMISTRY METHOD 06/21/2024 3:08 AM EST [facility] Total Bilirubin 0.7 0.0 - 1.4 mg/dL LAB CHEMISTRY METHOD 06/21/2024 3:08 AM EST [facility] Blood Venous blood specimen / Unknown Venipuncture / Unknown 06/21/2024 2:40 AM EST 06/21/2024 2:45 AM EST us Kyrie Villalpando DO LAB BLOOD ORDERABLES Final Res ult [facility] [address] [place] [address], from Last 3 Months Insurance [facility] Care Teams Upper Marker Relationship Specialty Start Date End Date Zofia Lyon [place] [address] [place] [address] PCP - General Physician Standpipe Tender 06/21/24
--- OUTSIDE RECORDS SUMMARY | 2024-07-25 08:06 | XMS_ITS | Clinical Summary ---
Author Organization [facility] Address [address] [place] [address] Care Team Providers Care Tank Inspector Name Role Phone Ben Grant MD Primary Care Provider [phone] Source Comments PLEASE NOTE, if this patient [...] reflux disease without esophagi tis 08/18/2017 Immunizations Immunization Administration Dates Next Due PPD 08/18/2017 Family [...] 3 - 19 + 3-dose series) 2001 [id number] () 01/02/2024 Imm-Influenza (#1) 2024 Alcohol and [...] EDT) GLUCOSE 92 65 - 99 mg/dL [facility] Comment: ?Fasting reference interval UREA NITROGEN (BUN) 12 7 - 25 mg/dL [facility] CREATININE (blood) 1.10 0.60 - 1.29 mg/dL [facility] EGFR 86 > OR = 60 mL/min/1. 73m2 [facility] BUN/CREATININE RATIO SEE NOTE: [facility] Comment: ?? Not Reported: BUN and Creatinine are within ?? reference range. ? SODIUM 139 135 - 146 mmol/L [facility] POTASSIUM 4.1 3.5 - 5.3 mmol/L [facility] CHLORIDE 103 98 - 110 mmol/L [facility] CARBON DIOXIDE 30 20 - 32 mmol/L [facility] CALCIUM 9.3 8.6 - 10.3 mg/dL [facility] PROTEIN, TOTAL 7.2 6.1 - 8.1 g/dL [facility] ALBUMIN 4.3 3.6 - 5.1 g/dL [facility] GLOBULIN 2.9 1.9 - 3.7 g/dL (calc) [facility] ALBUMIN/GLOBULI N RATIO 1.5 1.0 - 2.5 (calc) [facility] BILIRUBIN, TOTAL 1.1 0.2 - 1.2 mg/dL [facility] ALKALINE PHOSPHATASE 75 36 - 130 U/L [facility] AST 27 10 - 40 U/L [facility] ALT 34 9 - 46 U/L [facility] Blood Blood / Unknown 11/26/2023 1 1:19 AM EDT 11/26/2023 11:19 AM EDT Ben Grant MD LAB - BLOOD DRAW Edited Result - Final Performing Organization Address [facility]/ZIP Co de Phone Number [facility] [address] [address], [facility] [address] [address] * (ABNORMAL) LIPIDS W RFLX TO DIRECT LDL (11/15/2023 10:25 AM EDT) CHOLESTEROL, TOTAL 200(H) <200 mg/dL [facility] HDL CHOLESTEROL 46 > OR = 40 mg/dL [facility] TRIGLYCERIDES 76 <150 mg/dL [facility] LDL-CHOLESTEROL 137(H) 99 mg/dL (calc) [facility] Comment: Reference range: <100 Desirable range <100 mg/dL for primary prevention; ?? <70 mg/dL for patients with CHD or diabetic patients with > or = 2 CHD risk factors. LDL-C is now calculated using the David-Cassandra calculation, which is a validated novel method providing better accuracy than the Friedewald equation in the estimation of LDL-C. David SS et al. SIL. 2013;310(19): 3370-2699 (http://education.Neovacs/faq/IRI849) CHOL/HDLC RATIO 4.3 <5.0 (calc) [facility] NON-HDL CHOLESTEROL 154(H) <130 mg/dL (calc) [facility] Comment: For patients with diabetes plus 1 major ASCVD risk factor, treating to a non-HDL-C goal of <100 mg/dL (LDL-C of <70 mg/dL) is considered a therapeutic option. Blood Blood / Unknown 11/15/2023 1 0:25 AM EDT 11/15/2023 10:28 AM EDT Narrative [facility] - 11/16/2023 4:26 AM EDT FASTING:YES us Ben Grant MD LAB - BLOOD DRAW Edited Result - Final Performing Organization Address City/[facility]/ZIP Co de Phone Number [facility] [address] [place] [address], [facility] [address] [place] [address] * HEPATITIS C AB W/RFLX HCV RNA, QT, RT PCR (01/29/2021 9:21 AM EDT) Pathologist [facility] HEPATITIS C ANTIBODY NON-REACT RADHA NON-REACT RADHA [facility] SIGNAL TO CUT-OFF 0.01 <1.00 [facility] Comment: HCV antibody was non-reactive. There is no laboratory evidence of HCV infection. In most cases, no further action is required. However, if recent HCV exposure is suspected, a test for HCV RNA (test code 76445) is suggested. For additional information please refer to http://education.WHILL/faq/STP45r5 (This link is being provided for informational/ educational purposes only.) Blood Blood / Unknown 01/29/2021 9 :21 AM EDT 01/29/2021 9:21 AM EDT Narrative [facility] - 01/30/2021 12:19 AM EDT FASTING:YES Ben Grant MD LAB - BLOOD DRAW Edited Result - Final [facility] [address] [address], [facility] [address] [place] [address],[place] [address] * HIV-1 & HIV-2 ANTIBODIES (11/18/2017 1:41 PM EDT) [facility] HIV 1 AND 2 ANTIBODY SCREEN NEGATIVE NEGATIVE [facility] Comment: This assay is a 4th [...] PM EDT 11/18/2017 1:46 PM EDT Narrative [facility] 11/18/2017 10:16 PM EDT [email or web address] [address] [place] [address] PT ID [id number] ORD# [id number] us Ben Grant MD LAB - BLOOD DRAW Final Result [facility] [address] [place] [address], from Last 3 Months or Most Recently Relevant to Health Maintenance Insurance [employer]LISA [employer] Member Subscriber Plan / Payer (Ef fective 2019-Present) Name:Chintan Moralez Relation to Subscriber:Self Name:Chintan Moralez Payer ID:[id number] Type:Indemnity Address: [address] [address] Care Teams Tank Inspector Relationship Specialty Start Date End Date Ben Grant MD [address] [place] [address] PCP - General Internal Medicine 07/21/17
== END ==
LOC: HO.CARD 07:56
PROVIDERS: PCP Physician Assistant; Visit Provider Physician Assistant
DX: R07.89 Other chest pain (principal); R94.31 Abnormal electrocardiogram [ECG] [EKG]
CPT/HCPCS: 93017; 93306

== ENCOUNTER → 2024-07-25 08:01 | Outpatient (BNV) | payer BC, SELFPAY | PROVIDERS: PCP Physician Assistant | DX: R07.9 Chest pain, unspecified (principal); R06.02 Shortness of breath | CPT/HCPCS: 93016; 93018; 93320; 93325; 93350 ==

== ENCOUNTER 2024-08-02 09:44 | Outpatient (AMB) | payer BC, SELFPAY ==
--- NOTE | 2024-08-02 09:46 | MHC.PC.OV ---
Vital Signs 08/02/24 09:55 Height 5 ft 8 in Weight 177 lb BMI 26.9 BP 132/76 Blood Pressure Location Rt brachial Position Sitting Respiration 14 Pulse 86 Pulse Source Pulse Oximeter Pulse Oximetry (%) 94 Oxygen Delivery Method Room Air Intake Visit Reasons: follow up cardiac testings Intake Note: Follow up cardiac tests. Needs [employer] paperwork filled out, and determine is he should go back to work. 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 He recently had a stress test which was negative for ischemia. The echo was overall reassuring although he did have mild grade 1 diastolic dysfunction. While he was doing the treadmill stress test he did develop chest pain in the recommendation is for a stress echo. This was ordered and scheduled later this month.. No change in symptoms. The chest pain has been persistent since approximately the year 1999, and although initially manageable, it has recently increased in severity. The pain is primarily located on the left side of the chest and exacerbates with certain physical movements, such as swinging the arms or twisting the upper body. The patient denies any significant improvement from muscle relaxants previously prescribed. This musculoskeletal chest pain has been persistent for nearly 25 years. He states that he is just very concerned about this chest wall pain especially as he has had an abnormal EKG. Since having the abnormal EKG he has had multiple troponin levels which have been negative. He states that this chest pain is unchanged since the year 1999. He does not have any chest pain or shortness a breath with exertion. No palpitations or dizziness. His told him to take time off of work until he gets this worked up to make sure that he is not going to hurt himself. He states that he has a job that requires a lot of heavy lifting. The heavy lifting does exacerbate the pain. The pain is improved with rest. It is also worsened if he pushes on it or twists. Chest CT is scheduled this month. GI: At our last visit we did discuss the acid reflux. He states that it was significantly improved with the omeprazole initially but now he states that he is getting breakthrough symptoms despite being on omeprazole. He feels that the omeprazole is no longer effective.. He did have A liver MRI which was consistent with a hemangioma of the liver. He has a barium swallow scheduled next month. He was also referred to GI. He has not yet heard about an appointment time and date. No weight loss PFSH Surgical History No pertinent past surgical history Social History (Updated 07/13/24 @ 13:12 by Mindy Colorado CMA) Housing: House Alcohol intake: former Patient Tobacco Use Status: Former Tobacco user Years Smoked: unknown. 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 Current occupational exposures/hazards: No Cognitive needs: No Hearing needs: No Vision needs: No Questionnaire Thrive Questionnaire Date Thrive assessed: 07/13/24 I am a: Patient What is your living situation today?: I have a steady place to live Within the past 12 months, did the food you bought not last and you didn't have the money to get more?: Often true Within the past 12 months, did you worry whether your food would run out before you got money to buy more?: Often true Do you have trouble paying for medicines?: I choose not to answer this question Do you have trouble getting transportation to medical appointments?: I choose not to answer this question Do you have trouble paying your heating and electricity bill?: I choose not to answer this question Do you have trouble taking care of your child, family member or friend?: I choose not to answer this question Do you have trouble with day-to-day activities such as bathing, preparing meals, shopping, managing finances, etc.?: I choose not to answer this question Are you currently unemployed and looking for a job?: I choose not to answer this question Are you interested in more education?: I choose not to answer this question Please select the resources that you would like help with: None Currently or been in a relationship where the following occur: I choose not to answer THRIVE Score: 2 ALAINA-7 AMB Questionnaire ALAINA-7 Date ALAINA - 7 assessed: 04/05/24 Source: Developed by Drs. Homar Arevalo, Rosa M Celaya, Kris Contreras and colleagues, with an educational homar from [employer]. Physical exam (Primary Care) Vital Signs: Last Vital Signs Pulse 86 08/02/24 09:55 Resp 14 08/02/24 09:55 BP 132/76 08/02/24 09:55 Pulse Ox 94 08/02/24 09:55 Oxygen Delivery Method Room Air 08/02/24 09:55 BMI result Body Mass Index 26.9 Tobacco/Smoking Status: Tobacco use Status Tobacco use date assessed 06/29/24 08/02/24 09:47 Patient Tobacco Use Status Former Tobacco user 08/02/24 09:47 e-Cigarette/Vaping Use Never Used 08/02/24 09:47 Thrive Assessment: Date of Thrive Assessment Date Thrive assessed 07/13/24 08/02/24 09:47 Currently or been in a relationship where the following occur: I choose not to answer Const Orientation/consciousness: patient oriented x3 HENMT Ears: hearing grossly normal bilaterally Neck Thyroid: Thyroid normal Lymphatic: no lymphadenopathy noted Resp Auscultation: clear to auscultation bilaterally Cardio Rate: regular rate Rhythm: regular rhythm Heart sounds: S1 normal heart sound present and S2 normal heart sound present GI Inspection: Yes normal to inspection Palpation (GI): Soft to palpation and Other GI palpation findings present (nontender, no cva tenderness) Auscultation: normoactive bowel sounds Rectal Exam - Male: Yes deferred Skin General skin exam: no rashes or lesions noted Neuro General: patient oriented x3, gait normal and no focal motor deficits Coding Level of Care Code Est Pt Level 4 (21234) Complex EM visit Add On G2211 Diagnoses Dysphagia R13.10 Atypical chest pain R07.89 GERD (gastroesophageal reflux disease) K21.9 Assessment & Plan Assessment & Plan (1) Dysphagia: Code(s): R13.10 - Dysphagia, unspecified Category: Medical Plan: Barium swallow scheduled He has been referred to GI. No weight loss noted (2) Atypical chest pain: Code(s): R07.89 - Other chest pain Category: Medical Plan: We will try meloxicam to see if that improves his symptoms. Chest pain is reproducible but he does describe 3 different types of chest pains. Stress echo scheduled Chest CT scheduled He has been referred to Cardiology about a month half ago Warning signs of chest pain that would require emergent medical treatment were discussed Forms were filled out today. We will do light duty returned to work and follow up after test. (3) GERD (gastroesophageal reflux disease): Code(s): K21.9 - Gastro-esophageal reflux disease without esophagitis Category: Medical Plan: We will trial Nexium instead of omeprazole. Barium swallow scheduled and pending No changes in weight. Medications: New esomeprazole magnesium (Nexium) 40 mg PO DAILY 90 caps 0RF meloxicam 15 mg PO DAILY 30 tabs 0RF
[2024-08-02 09:55] VITALS: BP 132/76; PULSE 86; RESP 14; O2SAT 94; BMI 26.9
--- OUTSIDE RECORDS SUMMARY | 2024-08-02 11:03 | XMS_ITS | Clinical Summary ---
Author Organization [facility] Address [address] [place] [address] Phone Care Team Providers Care Head Of Biology Name Role Phone Zofia Lyon Primary Care Provider [phone] Allergies No known active allergies Medications methocarbamoL (ROBAXIN) 750 mg tablet Take 1 tablet (750 mg total) by mouth 4 (four) times a day for 10 days. 40 each 06/21/2024 Active Encounters Date Type Department Care Team Description 06/21/2024 7:35 AM EST - 06/21/2024 11:09 AM EST Emergency [facility] Emergency [address] [place] [address] Kyrie Villalpando DO Other chest [...] Signed Date: 06/21/2024 09:44 ET Workstation ID: [id number] Transcribed By: Self Edit Transcribed Date: 06/21/2024 [...] Signed Date: 06/21/2024 09:44 ET Workstation ID: [id number] Transcribed By: Self Edit Transcribed Date: 06/21/2024 09:35 ET Kyrie Villalpando DO IMG CT PROCEDURES Final Result * Troponin I high sensitivity (06/21/2024 4:14 AM EST) Only the most recent of2 resultswithin the time period is included. Pathologist [facility] High Sensitivity Troponin I 8 <=79 ng/L LAB CHEMISTRY METHOD 06/21/2024 4:41 AM EST [facility] Blood Venous blood specimen / Unknown Venipuncture / Unknown 06/21/2024 4:14 AM EST 06/21/2024 4:17 AM EST Narrative [facility] - 06/21/2024 4:41 AM EST High levels of biotin in samples may falsely decrease hsTroponin values. ??Use caution when interpreting hsTroponin results in patients taking biotin who exhibit renal impairment (eGFR <60) or in patients taking more than 20 mg/day of biotin. us Kyrie Villalpando DO LAB BLOOD ORDERABLES Final Res ult [facility] [address] [place] [address], [place] [phone] * ECG 12 lead (06/21/2024 4:05 AM EST) [facility] Ventricular Rate ECG 77 BPM GEMUSE Atrial Rate 77 BPM GEMUSE P-R Interval 182 ms GEMUSE QRS Duration 90 ms GEMUSE Q-T Interval 346 ms GEMUSE QTc 391 ms GEMUSE P Wave [place] 53 degrees GEMUSE R [place] 36 degrees GEMUSE T [place] 45 degrees GEMUSE ECG Interpretation Normal sinus [...] Signed Date: 06/21/2024 09:06 ET Workstation ID: [id number] Transcribed By: Self Edit Transcribed Date: 06/21/2024 [...] Signed Date: 06/21/2024 09:06 ET Workstation ID: [id number] Transcribed By: Self Edit Transcribed Date: 06/21/2024 08:59 ET Kyrie Villalpando DO IMG XR PROCEDURES Final Result * (ABNORMAL) CBC auto differential (06/21/2024 2:40 AM EST) [facility] WBC 9.3 4.8 - 10.8 K/mcL LAB HEMETOLOGY METHOD 06/21/2024 2:49 AM [facility] RBC 4.20(L) 4.50 - 5.50 M/mcL LAB HEMETOLOGY METHOD 06/21/2024 2:49 AM [facility] Hemoglobin 13.3(L) 13.5 - 17.5 g/dL LAB HEMETOLOGY METHOD 06/21/2024 2:49 AM [facility] Hematocrit 41.1(L) 42.0 - 54.0 % LAB HEMETOLOGY METHOD 06/21/2024 2:49 AM [facility] MCV 97.2 79.0 - 98.0 FL LAB HEMETOLOGY METHOD 06/21/2024 2:49 AM [facility] MCH 31.4 27.0 - 32.0 pcg LAB HEMETOLOGY METHOD 06/21/2024 2:49 AM [facility] MCHC 32.4 32.0 - 37.0 g/dL LAB HEMETOLOGY METHOD 06/21/2024 2:49 AM [facility] RDW 11.9 11.0 - 15.0 % LAB HEMETOLOGY METHOD 06/21/2024 2:49 AM [facility] Platelets 239 130 - 400 K/mcL LAB HEMETOLOGY METHOD 06/21/2024 2:49 AM [facility] MPV 9.7 7.0 - 11.0 FL LAB HEMETOLOGY METHOD 06/21/2024 2:49 AM [facility] NRBC 0.0 <1.0 % LAB HEMETOLOGY METHOD 06/21/2024 2:49 AM [facility] NRBC Absolute 0.00 <0.10 K/mcL LAB HEMETOLOGY METHOD 06/21/2024 2:49 AM [facility] Neutrophils Relative 54.0 % LAB HEMETOLOGY METHOD 06/21/2024 2:49 AM [facility] Lymphocytes Relative 34.8 % LAB HEMETOLOGY METHOD 06/21/2024 2:49 AM [facility] Monocytes Relative 8.5 % LAB HEMETOLOGY METHOD 06/21/2024 2:49 AM [facility] Eosinophils Relative 1.4 % LAB HEMETOLOGY METHOD 06/21/2024 2:49 AM [facility] Basophils Relative 0.5 % LAB HEMETOLOGY METHOD 06/21/2024 2:49 AM [facility] Immature Granulocytes Relative 0.8 % LAB HEMETOLOGY METHOD 06/21/2024 2:49 AM [facility] Neutrophils Absolute 5.00 1.50 - 7.00 K/mcL LAB HEMETOLOGY METHOD 06/21/2024 2:49 AM [facility] Lymphocytes Absolute 3.22 1.00 - 5.00 K/mcL LAB HEMETOLOGY METHOD 06/21/2024 2:49 AM [facility] Monocytes Absolute 0.79 0.20 - 1.00 K/mcL LAB HEMETOLOGY METHOD 06/21/2024 2:49 AM [facility] Eosinophils Absolute 0.13 0.00 - 0.50 K/mcL LAB HEMETOLOGY METHOD 06/21/2024 2:49 AM [facility] Basophils Absolute 0.05 0.00 - 0.20 K/mcL LAB HEMETOLOGY METHOD 06/21/2024 2:49 AM [facility] Immature Granulocytes Absolute 0.07(H) 0.00 - 0.03 K/mcL LAB HEMETOLOGY METHOD 06/21/2024 2:49 AM [facility] Blood Venous blood specimen / Unknown Venipuncture / Unknown 06/21/2024 2:40 AM EST 06/21/2024 2:45 AM EST us Kyrie Villalpando DO LAB BLOOD ORDERABLES Final Res ult Performing Organization Address [facility]/ZIP Co de Phone Number [facility] [address] [place] [address], [place] [phone] * Magnesium (06/21/2024 2:40 AM EST) [facility] Magnesium 2.1 1.9 - 2.6 mg/dL LAB CHEMISTRY METHOD 06/21/2024 3:08 AM EST [facility] Blood Venous blood specimen / Unknown Venipuncture / Unknown 06/21/2024 2:40 AM EST 06/21/2024 2:45 AM EST us Kyrie Villalpando DO LAB BLOOD ORDERABLES Final Res ult Performing Organization Address [facility]/ZIP Co de Phone Number [facility] [address] [place] [address], [place] [phone] * Lipase (06/21/2024 2:40 AM EST) [facility] Lipase 56 13 - 75 unit/L LAB CHEMISTRY METHOD 06/21/2024 3:08 AM EST [facility] Blood Venous blood specimen / Unknown Venipuncture / Unknown 06/21/2024 2:40 AM EST 06/21/2024 2:45 AM EST us Kyrie Villalpando DO LAB BLOOD ORDERABLES Final Res ult Performing Organization Address City/[facility]/ZIP Co de Phone Number [facility] [address] [place] [address], [place] [phone] * (ABNORMAL) Comprehensive metabolic panel (06/21/2024 2:40 AM EST) [facility] Sodium 138 133 - 145 mmol/L LAB CHEMISTRY METHOD 06/21/2024 3:08 AM [facility] Potassium 3.9 3.5 - 5.5 mmol/L LAB CHEMISTRY METHOD 06/21/2024 3:08 AM [facility] Chloride 105 96 - 110 mmol/L LAB CHEMISTRY METHOD 06/21/2024 3:08 AM [facility] CO2 30 21 - 32 mmol/L LAB CHEMISTRY METHOD 06/21/2024 3:08 AM [facility] Anion Gap 3 3 - 11 LAB CHEMISTRY METHOD 06/21/2024 3:08 AM [facility] Glucose 100 70 - 100 mg/dL LAB CHEMISTRY METHOD 06/21/2024 3:08 AM [facility] BUN 15 5 - 25 mg/dL LAB CHEMISTRY METHOD 06/21/2024 3:08 AM [facility] Creatinine 1.24 0.70 - 1.30 mg/dL LAB CHEMISTRY METHOD 06/21/2024 3:08 AM [facility] eGFR 75 >=60 mL/min/1. 73m2 LAB CHEMISTRY METHOD 06/21/2024 3:08 AM [facility] Comment:Calculation based on the??Chronic Kidney Disease Epidemiology Collaboration (CKD-EPI) equation refit??without adjustment for race. BUN/Creatinine Ratio 12.1 LAB CHEMISTRY METHOD 06/21/2024 3:08 AM [facility] Calcium 9.5 8.5 - 10.5 mg/dL LAB CHEMISTRY METHOD 06/21/2024 3:08 AM [facility] AST (SGOT) 50(H) 10 - 42 unit/L LAB CHEMISTRY METHOD 06/21/2024 3:08 AM [facility] ALT (SGPT) 77(H) 10 - 60 unit/L LAB CHEMISTRY METHOD 06/21/2024 3:08 AM [facility] Alkaline Phosphatase 82 42 - 121 unit/L LAB CHEMISTRY METHOD 06/21/2024 3:08 AM EST [facility] Total Protein 7.1 6.0 - 8.0 g/dL LAB CHEMISTRY METHOD 06/21/2024 3:08 AM EST [facility] Albumin 3.8 3.2 - 5.0 g/dL LAB CHEMISTRY METHOD 06/21/2024 3:08 AM EST [facility] Total Bilirubin 0.7 0.0 - 1.4 mg/dL LAB CHEMISTRY METHOD 06/21/2024 3:08 AM EST [facility] Blood Venous blood specimen / Unknown Venipuncture / Unknown 06/21/2024 2:40 AM EST 06/21/2024 2:45 AM EST us Kyrie Villalpando DO LAB BLOOD ORDERABLES Final Res ult [facility] [address] [place] [address], from Last 3 Months Insurance [facility] Care Teams Head Of Biology Relationship Specialty Start Date End Date Zofia Lyon PA [address] [place] [address] PCP - General Physician [employer] 06/21/24
--- OUTSIDE RECORDS SUMMARY | 2024-08-02 11:03 | XMS_ITS | Clinical Summary ---
Author Organization [facility] Address [address] [place] [address] Care Team Providers Care Biofuels Engineering Manager Name Role Phone Ben Grant MD Primary Care Provider [phone] Source Comments PLEASE NOTE, if this patient [...] Health Maintenance Due Date Last Done Comments Anxiety Screening 1982 Imm-Hepatitis B (1 of 3 - 19 + 3-dose series) 2001 [id number] () 01/02/2024 Imm-Influenza (#1) 2024 Alcohol and [...] EDT) GLUCOSE 92 65 - 99 mg/dL [facility] Comment: ?Fasting reference interval UREA NITROGEN (BUN) 12 7 - 25 mg/dL [facility] CREATININE (blood) 1.10 0.60 - 1.29 mg/dL [facility] EGFR 86 > OR = 60 mL/min/1. 73m2 [facility] BUN/CREATININE RATIO SEE NOTE: [facility] Comment: ?? Not Reported: BUN and Creatinine are within ?? reference range. ? SODIUM 139 135 - 146 mmol/L [facility] POTASSIUM 4.1 3.5 - 5.3 mmol/L [facility] CHLORIDE 103 98 - 110 mmol/L [facility] CARBON DIOXIDE 30 20 - 32 mmol/L [facility] CALCIUM 9.3 8.6 - 10.3 mg/dL [facility] PROTEIN, TOTAL 7.2 6.1 - 8.1 g/dL [facility] ALBUMIN 4.3 3.6 - 5.1 g/dL [facility] GLOBULIN 2.9 1.9 - 3.7 g/dL (calc) [facility] ALBUMIN/GLOBULI N RATIO 1.5 1.0 - 2.5 (calc) [facility] BILIRUBIN, TOTAL 1.1 0.2 - 1.2 mg/dL [facility] ALKALINE PHOSPHATASE 75 36 - 130 U/L [facility] AST 27 10 - 40 U/L [facility] ALT 34 9 - 46 U/L [facility] Blood Blood / Unknown 11/26/2023 1 1:19 AM EDT 11/26/2023 11:19 AM EDT Ben Grant MD LAB - BLOOD DRAW Edited Result - Final Performing Organization Address City/[facility]/ZIP Co de Phone Number [facility] [address] [address], [employer] [address] [address] * (ABNORMAL) LIPIDS W RFLX TO DIRECT LDL (11/15/2023 10:25 AM EDT) CHOLESTEROL, TOTAL 200(H) <200 mg/dL [facility] HDL CHOLESTEROL 46 > OR = 40 mg/dL [employer] TRIGLYCERIDES 76 <150 mg/dL [employer] [facility] LDL-CHOLESTEROL 137(H) 99 mg/dL (calc) [employer] [facility] Comment: Reference range: <100 Desirable range <100 mg/dL for primary prevention; ?? <70 mg/dL for patients with CHD or diabetic patients with > or = 2 CHD risk factors. LDL-C is now calculated using the David-Cassandra calculation, which is a validated novel method providing better accuracy than the Friedewald equation in the estimation of LDL-C. David SS et al. SIL. 2013;310(19): 4513-2782 (http://education.[employer]faq/QSL982) CHOL/HDLC RATIO 4.3 <5.0 (calc) [facility] NON-HDL CHOLESTEROL 154(H) <130 mg/dL (calc) [facility] Comment: For patients with diabetes plus 1 major ASCVD risk factor, treating to a non-HDL-C goal of <100 mg/dL (LDL-C of <70 mg/dL) is considered a therapeutic option. Blood Blood / Unknown 11/15/2023 1 0:25 AM EDT 11/15/2023 10:28 AM EDT Narrative [facility] - 11/16/2023 4:26 AM EDT FASTING:YES us Ben Grant MD LAB - BLOOD DRAW Edited Result - Final Performing Organization Address City/[facility]/ZIP Co de Phone Number [facility] [address] [address], [employer] [address] [phone] * HEPATITIS C AB W/RFLX HCV RNA, QT, RT PCR (01/29/2021 9:21 AM EDT) Pathologist [facility] HEPATITIS C ANTIBODY NON-REACT RADHA NON-REACT RADHA [facility] SIGNAL TO CUT-OFF 0.01 <1.00 [facility] Comment: HCV antibody was non-reactive. There is no laboratory evidence of HCV infection. In most cases, no further action is required. However, if recent HCV exposure is suspected, a test for HCV RNA (test code 41478) is suggested. For additional information please refer to http://education.[employer]/faq/NNX47b6 (This link is being provided for informational/ educational purposes only.) Blood Blood / Unknown 01/29/2021 9 :21 AM EDT 01/29/2021 9:21 AM EDT Narrative [facility] - 01/30/2021 12:19 AM EDT FASTING:YES Ben Grant MD LAB - BLOOD DRAW Edited Result - Final [facility] [address] [address], [employer] [address] [address] * HIV-1 & HIV-2 ANTIBODIES (11/18/2017 1:41 PM EDT) Pathologist [facility] HIV 1 AND 2 ANTIBODY SCREEN NEGATIVE NEGATIVE [facility] Comment: This assay is a 4th generation [...] PM EDT 11/18/2017 1:46 PM EDT Narrative [facility] - 11/18/2017 10:16 PM EDT [facility] [address] [place] [address] PT ID [id number] ORD# [id number] us Ben Grant MD LAB - BLOOD DRAW Final Result [facility] [address] [place] [address], from Last 3 Months or Most Recently Relevant to Health Maintenance Insurance [employer] [place] Member Subscriber Plan / Payer (Ef fective 2019-Present) Name:Chintan Moralez Relation to Subscriber:Self Name:Chintan Moralez Payer ID:[id number] Type:Indemnity Address: [address] [address] Care Teams Biofuels Engineering Manager Relationship Specialty Start Date End Date Ben Grant MD [address] [place] [address] PCP - General Internal Medicine 07/21/17
== END 2024-08-02 10:21 | disposition home or self-care (01) ==
LOC: HO.HMCFM 09:45
PROVIDERS: PCP Physician Assistant; Visit Provider Physician Assistant
DX: R13.10 Dysphagia, unspecified (principal); R07.89 Other chest pain; K21.9 Gastro-esophageal reflux disease without esophagitis

== ENCOUNTER 2024-08-23 08:02 | Outpatient (REF) | payer BC, SELFPAY ==
--- NOTE | ~2024-08-23 | CT_ITS ---
CLINICAL HISTORY: R07.89 - Other chest pain CT chest without IV contrast. COMPARISON: None FINDINGS: Visualized thyroid is unremarkable. No supraclavicular or axillary lymphadenopathy. No supraclavicular or axillary lymphadenopathy. Ascending aorta and main pulmonary artery are normal in caliber. No pericardial effusion. Normal esophagus. No mediastinal lymphadenopathy. No pleural effusion. No consolidation. Trachea and central airways are clear. No significant bronchial wall thickening. No bronchiectasis. Visualized portions of the upper abdomen are unremarkable. No acute fracture or suspicious osseous abnormality. IMPRESSION: 1. No cause for patient's symptoms identified. No evidence of pneumonia. This document has been electronically signed by: Branden Brooks MD on 08/23/2024 12:53:59
--- OUTSIDE RECORDS SUMMARY | 2024-08-23 08:08 | XMS_ITS | Clinical Summary ---
Author Organization [facility] Address [address] [place] [address] Phone Care Team Providers Care Manual Writer Name Role Phone Zofia Lyon Primary Care Provider [phone] Allergies No known active allergies Medications methocarbamoL (ROBAXIN) 750 mg tablet Take 1 tablet (750 mg total) by mouth 4 (four) times a day for 10 days. 40 each 06/21/2024 Active Encounters Date Type Department Care Team Description 06/21/2024 7:35 AM EST - 06/21/2024 11:[address] [facility] Emergency [address] [place] [address] Kyrie Villalpando DO Other chest [...] Health Screening 04/05/2022 COVID-19 Vaccine ( - season) 2024 Depression Screening 05/06/2024 05/06/2023 Influenza Vaccine (Season Ended) 2025 Hypertension/CHF/CAD Annual BMP Blood Test 06/21/2025 06/21/2024, [...] age to complete this topic Meningococcal B Vaccine Aged Out No l onger eligible based on patient's age to complete [...] Signed Date: 06/21/2024 09:44 ET Workstation ID: [id number] Transcribed By: Self Edit Transcribed Date: 06/21/2024 [...] Signed Date: 06/21/2024 09:44 ET Workstation ID: [id number] Transcribed By: Self Edit Transcribed Date: 06/21/2024 09:35 ET us Kyrie Villalpando DO IMG CT PROCEDURES Final Result * Troponin I high sensitivity (06/21/2024 4:14 AM EST) Only the most recent of2 resultswithin the time period is included. Pathologist [facility] High Sensitivity Troponin I 8 <=79 ng/L LAB CHEMISTRY METHOD 06/21/2024 4:41 AM EST [facility] Blood Venous blood specimen / Unknown Venipuncture / Unknown 06/21/2024 4:14 AM EST 06/21/2024 4:17 AM EST Narrative [facility] - 06/21/2024 4:41 AM EST High levels of biotin in samples may falsely decrease hsTroponin values. ??Use caution when interpreting hsTroponin results in patients taking biotin who exhibit renal impairment (eGFR <60) or in patients taking more than 20 mg/day of biotin. us Kyrie Villalpando DO LAB BLOOD ORDERABLES Final Res ult [facility]) [facility] [address] [place] [address], [place] [phone] * ECG 12 lead (06/21/2024 4:05 AM EST) Pathologist [facility] Ventricular Rate ECG 77 BPM GEMUSE Atrial Rate 77 BPM GEMUSE P-R Interval 182 ms GEMUSE QRS Duration 90 ms GEMUSE Q-T Interval 346 ms GEMUSE QTc 391 ms GEMUSE P Wave [place] 53 degrees GEMUSE R [place] 36 degrees GEMUSE T [place] 45 degrees GEMUSE ECG Interpretation Normal sinus [...] Signed Date: 06/21/2024 09:06 ET Workstation ID: [id number] Transcribed By: Self Edit Transcribed Date: 06/21/2024 [...] Signed Date: 06/21/2024 09:06 ET Workstation ID: [id number] Transcribed By: Self Edit Transcribed Date: 06/21/2024 08:59 ET Kyrie Villalpando DO IMG XR PROCEDURES Final Result * (ABNORMAL) CBC auto differential (06/21/2024 2:40 AM EST) [facility] WBC 9.3 4.8 - 10.8 K/mcL LAB HEMETOLOGY METHOD 06/21/2024 2:49 AM [facility] RBC 4.20(L) 4.50 - 5.50 M/mcL LAB HEMETOLOGY METHOD 06/21/2024 2:49 AM [facility] Hemoglobin 13.3(L) 13.5 - 17.5 g/dL LAB HEMETOLOGY METHOD 06/21/2024 2:49 AM [facility] Hematocrit 41.1(L) 42.0 - 54.0 % LAB HEMETOLOGY METHOD 06/21/2024 2:49 AM [facility] MCV 97.2 79.0 - 98.0 FL LAB HEMETOLOGY METHOD 06/21/2024 2:49 AM [facility] MCH 31.4 27.0 - 32.0 pcg LAB HEMETOLOGY METHOD 06/21/2024 2:49 AM [facility] MCHC 32.4 32.0 - 37.0 g/dL LAB HEMETOLOGY METHOD 06/21/2024 2:49 AM [facility] RDW 11.9 11.0 - 15.0 % LAB HEMETOLOGY METHOD 06/21/2024 2:49 AM [facility] Platelets 239 130 - 400 K/mcL LAB HEMETOLOGY METHOD 06/21/2024 2:49 AM [facility] MPV 9.7 7.0 - 11.0 FL LAB HEMETOLOGY METHOD 06/21/2024 2:49 AM [facility] NRBC 0.0 <1.0 % LAB HEMETOLOGY METHOD 06/21/2024 2:49 AM [facility] NRBC Absolute 0.00 <0.10 K/mcL LAB HEMETOLOGY METHOD 06/21/2024 2:49 AM [facility] Neutrophils Relative 54.0 % LAB HEMETOLOGY METHOD 06/21/2024 2:49 AM [facility] Lymphocytes Relative 34.8 % LAB HEMETOLOGY METHOD 06/21/2024 2:49 AM [facility] Monocytes Relative 8.5 % LAB HEMETOLOGY METHOD 06/21/2024 2:49 AM [facility] Eosinophils Relative 1.4 % LAB HEMETOLOGY METHOD 06/21/2024 2:49 AM [facility] Basophils Relative 0.5 % LAB HEMETOLOGY METHOD 06/21/2024 2:49 AM [facility] Immature Granulocytes Relative 0.8 % LAB HEMETOLOGY METHOD 06/21/2024 2:49 AM [facility] Neutrophils Absolute 5.00 1.50 - 7.00 K/mcL LAB HEMETOLOGY METHOD 06/21/2024 2:49 AM [facility] Lymphocytes Absolute 3.22 1.00 - 5.00 K/mcL LAB HEMETOLOGY METHOD 06/21/2024 2:49 AM [facility] Monocytes Absolute 0.79 0.20 - 1.00 K/mcL LAB HEMETOLOGY METHOD 06/21/2024 2:49 AM [facility] Eosinophils Absolute 0.13 0.00 - 0.50 K/mcL LAB HEMETOLOGY METHOD 06/21/2024 2:49 AM [facility] Basophils Absolute 0.05 0.00 - 0.20 K/mcL LAB HEMETOLOGY METHOD 06/21/2024 2:49 AM [facility] Immature Granulocytes Absolute 0.07(H) 0.00 - 0.03 K/mcL LAB HEMETOLOGY METHOD 06/21/2024 2:49 AM [facility] Blood Venous blood specimen / Unknown Venipuncture / Unknown 06/21/2024 2:40 AM EST 06/21/2024 2:45 AM EST us Kyrie Villalpando DO LAB BLOOD ORDERABLES Final Res ult Performing Organization Address [facility]/ZIP Co de Phone Number [facility] [address] [place] [address], [place] [phone] * Magnesium (06/21/2024 2:40 AM EST) [facility] Magnesium 2.1 1.9 - 2.6 mg/dL LAB CHEMISTRY METHOD 06/21/2024 3:08 AM EST [facility] Blood Venous blood specimen / Unknown Venipuncture / Unknown 06/21/2024 2:40 AM EST 06/21/2024 2:45 AM EST us Kyrie Villalpando DO LAB BLOOD ORDERABLES Final Res ult Performing Organization Address [facility] Co de Phone Number [facility] [address] [place] [address], [place] [phone] * Lipase (06/21/2024 2:40 AM EST) [facility] Lipase 56 13 - 75 unit/L LAB CHEMISTRY METHOD 06/21/2024 3:08 AM EST [facility] Blood Venous blood specimen / Unknown Venipuncture / Unknown 06/21/2024 2:40 AM EST 06/21/2024 2:45 AM EST us Kyrie Villalpando DO LAB BLOOD ORDERABLES Final Res ult Performing Organization Address [facility]/ZIP Co de Phone Number [facility] [address] [place] [address], [place] [phone] * (ABNORMAL) Comprehensive metabolic panel (06/21/2024 2:40 AM EST) [facility] Sodium 138 133 - 145 mmol/L LAB CHEMISTRY METHOD 06/21/2024 3:08 AM [facility] Potassium 3.9 3.5 - 5.5 mmol/L LAB CHEMISTRY METHOD 06/21/2024 3:08 AM [facility] Chloride 105 96 - 110 mmol/L LAB CHEMISTRY METHOD 06/21/2024 3:08 AM [facility] CO2 30 21 - 32 mmol/L LAB CHEMISTRY METHOD 06/21/2024 3:08 AM [facility] Anion Gap 3 3 - 11 LAB CHEMISTRY METHOD 06/21/2024 3:08 AM [facility] Glucose 100 70 - 100 mg/dL LAB CHEMISTRY METHOD 06/21/2024 3:08 AM [facility] BUN 15 5 - 25 mg/dL LAB CHEMISTRY METHOD 06/21/2024 3:08 AM [facility] Creatinine 1.24 0.70 - 1.30 mg/dL LAB CHEMISTRY METHOD 06/21/2024 3:08 AM [facility] eGFR 75 >=60 mL/min/1. 73m2 LAB CHEMISTRY METHOD 06/21/2024 3:08 AM [facility] Comment:Calculation based on the??Chronic Kidney Disease Epidemiology Collaboration (CKD-EPI) equation refit??without adjustment for race. BUN/Creatinine Ratio 12.1 LAB CHEMISTRY METHOD 06/21/2024 3:08 AM [facility] Calcium 9.5 8.5 - 10.5 mg/dL LAB CHEMISTRY METHOD 06/21/2024 3:08 AM [facility] AST (SGOT) 50(H) 10 - 42 unit/L LAB CHEMISTRY METHOD 06/21/2024 3:08 AM [facility] ALT (SGPT) 77(H) 10 - 60 unit/L LAB CHEMISTRY METHOD 06/21/2024 3:08 AM [facility] Alkaline Phosphatase 82 42 - 121 unit/L LAB CHEMISTRY METHOD 06/21/2024 3:08 AM EST [facility] Total Protein 7.1 6.0 - 8.0 g/dL LAB CHEMISTRY METHOD 06/21/2024 3:08 AM EST [facility] Albumin 3.8 3.2 - 5.0 g/dL LAB CHEMISTRY METHOD 06/21/2024 3:08 AM EST [facility] Total Bilirubin 0.7 0.0 - 1.4 mg/dL LAB CHEMISTRY METHOD 06/21/2024 3:08 AM EST [facility] Blood Venous blood specimen / Unknown Venipuncture / Unknown 06/21/2024 2:40 AM EST 06/21/2024 2:45 AM EST us Kyrie Villalpando DO LAB BLOOD ORDERABLES Final Res ult [facility] [address] [place] [address], from Last 3 Months Insurance [facility] Care Teams Manual Writer Relationship Specialty Start Date End Date Zofia Lyon PA [address] [place] [address] PCP - General Physician [employer] 06/21/24
--- OUTSIDE RECORDS SUMMARY | 2024-08-23 08:08 | XMS_ITS | Clinical Summary ---
Author Organization [facility] Address [address] [place] [address] Care Team Providers Care Launch Leader Name Role Phone Ben Grant MD Primary Care Provider [phone] Source Comments PLEASE NOTE, if this patient [...] 3 - 19 + 3-dose series) 2001 [id number] () 01/02/2024 Imm-Influenza (#1) 2024 Alcohol and [...] EDT) GLUCOSE 92 65 - 99 mg/dL [facility] Comment: ?Fasting reference interval UREA NITROGEN (BUN) 12 7 - 25 mg/dL [facility] CREATININE (blood) 1.10 0.60 - 1.29 mg/dL [facility] EGFR 86 > OR = 60 mL/min/1. 73m2 [facility] BUN/CREATININE RATIO SEE NOTE: [facility] Comment: ?? Not Reported: BUN and Creatinine are within ?? reference range. ? SODIUM 139 135 - 146 mmol/L [facility] POTASSIUM 4.1 3.5 - 5.3 mmol/L [facility] CHLORIDE 103 98 - 110 mmol/L [facility] CARBON DIOXIDE 30 20 - 32 mmol/L [facility] CALCIUM 9.3 8.6 - 10.3 mg/dL [facility] PROTEIN, TOTAL 7.2 6.1 - 8.1 g/dL [facility] ALBUMIN 4.3 3.6 - 5.1 g/dL [facility] GLOBULIN 2.9 1.9 - 3.7 g/dL (calc) [facility] ALBUMIN/GLOBULI N RATIO 1.5 1.0 - 2.5 (calc) [facility] BILIRUBIN, TOTAL 1.1 0.2 - 1.2 mg/dL [facility] ALKALINE PHOSPHATASE 75 36 - 130 U/L [facility] AST 27 10 - 40 U/L [facility] ALT 34 9 - 46 U/L [facility] Blood Blood / Unknown 11/26/2023 1 1:19 AM EDT 11/26/2023 11:19 AM EDT Ben Grant MD LAB - BLOOD DRAW Edited Result - Final Performing Organization Address City/[facility]/ZIP Co de Phone Number [facility] [address] [address], [facility] [address] [address] * (ABNORMAL) LIPIDS W RFLX TO DIRECT LDL (11/15/2023 10:25 AM EDT) CHOLESTEROL, TOTAL 200(H) <200 mg/dL [facility] HDL CHOLESTEROL 46 > OR = 40 mg/dL [facility] TRIGLYCERIDES 76 <150 mg/dL [facility] LDL-CHOLESTEROL 137(H) 99 mg/dL (calc) [facility] Comment: Reference range: <100 Desirable range <100 mg/dL for primary prevention; ?? <70 mg/dL for patients with CHD or diabetic patients with > or = 2 CHD risk factors. LDL-C is now calculated using the David-Cassandra calculation, which is a validated novel method providing better accuracy than the Friedewald equation in the estimation of LDL-C. David SS et al. SIL. 2013;310(19): 8907-5832 (http://education.[employer]/faq/KSQ177) CHOL/HDLC RATIO 4.3 <5.0 (calc) [facility] NON-HDL CHOLESTEROL 154(H) <130 mg/dL (calc) [facility] Comment: For patients with diabetes plus 1 major ASCVD risk factor, treating to a non-HDL-C goal of <100 mg/dL (LDL-C of <70 mg/dL) is considered a therapeutic option. Blood Blood / Unknown 11/15/2023 1 0:25 AM EDT 11/15/2023 10:28 AM EDT Narrative [facility] - 11/16/2023 4:26 AM EDT FASTING:YES us Ben Grant MD LAB - BLOOD DRAW Edited Result - Final Performing Organization Address City/[facility]/ZIP Co de Phone Number [facility] [address] [address], [employer] [address] [address] * HEPATITIS C AB W/RFLX HCV RNA, QT, RT PCR (01/29/2021 9:21 AM EDT) Pathologist [facility] HEPATITIS C ANTIBODY NON-REACT RADHA NON-REACT RADHA [facility] SIGNAL TO CUT-OFF 0.01 <1.00 [facility] Comment: HCV antibody was non-reactive. There is no laboratory evidence of HCV infection. In most cases, no further action is required. However, if recent HCV exposure is suspected, a test for HCV RNA (test code 25182) is suggested. For additional information please refer to http://education.P[employer]/faq/RRN86i7 (This link is being provided for informational/ educational purposes only.) Blood Blood / Unknown 01/29/2021 9 :21 AM EDT 01/29/2021 9:21 AM EDT Narrative [facility] - 01/30/2021 12:19 AM EDT FASTING:YES Ben Grant MD LAB - BLOOD DRAW Edited Result - Final [facility] [address] [address], [employer] [address] [address] * HIV-1 & HIV-2 ANTIBODIES (11/18/2017 1:41 PM EDT) Pathologist [facility] HIV 1 AND 2 ANTIBODY SCREEN NEGATIVE NEGATIVE [facility] Comment: This assay is a 4th generation [...] EDT 11/18/2017 1:46 PM EDT Narrative [facility] - 11/18/2017 10:16 PM EDT [facility] [address] [place] [address] PT ID [id number] ORD# [id number] us Ben Grant MD LAB - BLOOD DRAW Final Result [facility] [address] [place] [address], from Last 3 Months or Most Recently Relevant to Health Maintenance Insurance [employer] [place] Member Subscriber Plan / Payer (Ef fective 2019-Present) Name:Chintan Moralez Relation to Subscriber:Self Name:Chintan Moralez Payer ID:[id number] Type:Indemnity Address: [address] [address] Care Teams Launch Leader Relationship Specialty Start Date End Date Ben Grant MD [address] [place] [address] PCP - General Internal Medicine 07/21/17
== END 2024-08-23 08:03 | disposition home or self-care (01) ==
LOC: HO.CT 08:02
PROVIDERS: PCP Physician Assistant; Visit Provider Physician Assistant
DX: R07.89 Other chest pain (principal); R04.2 Hemoptysis; K76.9 Liver disease, unspecified; I10 Essential (primary) hypertension; K21.9 Gastro-esophageal reflux disease without esophagitis
CPT/HCPCS: 71250

== ENCOUNTER → 2024-08-23 08:03 | Outpatient (BNV) | payer BC, SELFPAY | PROVIDERS: PCP Physician Assistant; Visit Provider Radiology Diagnostic Radiology | DX: R07.89 Other chest pain (principal) | CPT/HCPCS: 71250 ==

== ENCOUNTER 2024-08-28 08:49 | Outpatient (REF) | payer BC, SELFPAY ==
--- OUTSIDE RECORDS SUMMARY | 2024-08-28 09:26 | XMS_ITS | Clinical Summary ---
Author Organization [facility] Address [address] [place] [address] Phone Care Team Providers Care Family Court Registrar Name Role Phone Zofia Lyon Primary Care Provider [phone] Allergies No known active allergies Medications methocarbamoL (ROBAXIN) 750 mg tablet Take 1 tablet (750 mg total) by mouth 4 (four) times a day for 10 days. 40 each 06/21/2024 Active Encounters Date Type Department Care Team Description 06/21/2024 7:35 AM EST - 06/21/2024 11:09 AM EST Emergency [facility] Emergency [address] [place] [address] Kyrie Villalpando DO Other chest [...] Signed Date: 06/21/2024 09:44 ET Workstation ID: [id number] Transcribed By: Self Edit Transcribed Date: 06/21/2024 [...] Signed Date: 06/21/2024 09:44 ET Workstation ID: [id number] Transcribed By: Self Edit Transcribed Date: 06/21/2024 09:35 ET us Kyrie Villalpando DO IMG CT PROCEDURES Final Result * Troponin I high sensitivity (06/21/2024 4:14 AM EST) Only the most recent of2 resultswithin the time period is included. Pathologist [facility] High Sensitivity Troponin I 8 <=79 ng/L LAB CHEMISTRY METHOD 06/21/2024 4:[address] [facility] Blood Venous blood specimen / Unknown Venipuncture / Unknown 06/21/2024 4:14 AM EST 06/21/2024 4:[address] [facility] - 06/21/2024 4:41 AM EST High levels of biotin in samples may falsely decrease hsTroponin values. ??Use caution when interpreting hsTroponin results in patients taking biotin who exhibit renal impairment (eGFR <60) or in patients taking more than 20 mg/day of biotin. us Kyrie Villalpando DO LAB BLOOD ORDERABLES Final Res ult [facility]) [facility] [address] [place] [address], [place] [phone] * ECG 12 lead (06/21/2024 4:05 AM EST) Pathologist [facility] Ventricular Rate ECG 77 BPM GEMUSE Atrial Rate 77 BPM GEMUSE P-R Interval 182 ms GEMUSE QRS Duration 90 ms GEMUSE Q-T Interval 346 ms GEMUSE QTc 391 ms GEMUSE P Wave [place] 53 degrees GEMUSE R [place] 36 degrees GEMUSE T [place] 45 degrees GEMUSE ECG Interpretation Normal sinus [...] Signed Date: 06/21/2024 09:06 ET Workstation ID: [id number] Transcribed By: Self Edit Transcribed Date: 06/21/2024 [...] Signed Date: 06/21/2024 09:06 ET Workstation ID: [id number] Transcribed By: Self Edit Transcribed Date: 06/21/2024 08:59 ET Kyrie Villalpando DO IMG XR PROCEDURES Final Result * (ABNORMAL) CBC auto differential (06/21/2024 2:40 AM EST) [facility] WBC 9.3 4.8 - 10.8 K/mcL LAB [...] 06/21/2024 2:49 AM [facility] Neutrophils Absolute 5.00 1.50 - 7.00 K/mcL LAB HEMETOLOGY METHOD 06/21/2024 2:49 AM [facility] Lymphocytes Absolute 3.22 1.00 - 5.00 K/mcL LAB HEMETOLOGY METHOD 06/21/2024 2:49 AM [facility] Monocytes Absolute 0.79 0.20 - 1.00 K/mcL LAB HEMETOLOGY METHOD 06/21/2024 2:49 AM [facility] Eosinophils Absolute 0.13 0.00 - 0.50 K/mcL LAB HEMETOLOGY METHOD 06/21/2024 2:49 AM [facility] Basophils Absolute 0.05 0.00 - 0.20 K/mcL LAB HEMETOLOGY METHOD 06/21/2024 2:49 AM [facility] Immature Granulocytes Absolute 0.07(H) 0.00 - 0.03 K/mcL LAB HEMETOLOGY METHOD 06/21/2024 2:49 AM [facility] Blood Venous blood specimen / Unknown Venipuncture / Unknown 06/21/2024 2:40 AM EST 06/21/2024 2:45 AM EST us Kyrie Villalpando DO LAB BLOOD ORDERABLES Final Res ult Performing Organization Address [facility]/ZIP Co de Phone Number [facility] [address] [place] [address], [place] [phone] * Magnesium (06/21/2024 2:40 AM EST) [facility] Magnesium 2.1 1.9 - 2.6 mg/dL LAB CHEMISTRY METHOD 06/21/2024 3:[address] [facility] Blood Venous blood specimen / Unknown Venipuncture / Unknown 06/21/2024 2:40 AM EST 06/21/2024 2:45 AM EST us Kyrie Villalpando DO LAB BLOOD ORDERABLES Final Res ult Performing Organization Address [facility] Co de Phone Number [facility] [address] [place] [address], [place] [phone] * Lipase (06/21/2024 2:40 AM EST) [facility] Lipase 56 13 - 75 unit/L LAB CHEMISTRY METHOD 06/21/2024 3:[address] [facility] Blood Venous blood specimen / Unknown Venipuncture / Unknown 06/21/2024 2:40 AM EST 06/21/2024 2:45 AM EST us Kyrie Villalpando DO LAB BLOOD ORDERABLES Final Res ult Performing Organization Address [facility]/ZIP Co de Phone Number [facility] [address] [place] [address], [place] [phone] * (ABNORMAL) Comprehensive metabolic panel (06/21/2024 2:40 AM EST) [facility] Sodium 138 133 - 145 mmol/L LAB [...] LAB CHEMISTRY METHOD 06/21/2024 3:[address] [facility] Total Protein 7.1 6.0 - 8.0 g/dL LAB CHEMISTRY METHOD 06/21/2024 3:[address] [facility] Albumin 3.8 3.2 - 5.0 g/dL LAB CHEMISTRY METHOD 06/21/2024 3:[address] [facility] Total Bilirubin 0.7 0.0 - 1.4 mg/dL LAB CHEMISTRY METHOD 06/21/2024 3:[address] [facility] Blood Venous blood specimen / Unknown Venipuncture / Unknown 06/21/2024 2:40 AM EST 06/21/2024 2:45 AM EST us Kyrie Villalpando DO LAB BLOOD ORDERABLES Final Res ult [facility] [address] [place] [address], from Last 3 Months [facility] Care Teams Family Court Registrar Relationship Specialty Start Date End Date Zofia Lyon [place] [address] [place] [address] PCP - General Physician Mechanical Engineering Teacher 06/21/24
--- OUTSIDE RECORDS SUMMARY | 2024-08-28 09:26 | XMS_ITS | Clinical Summary ---
Author Organization [facility] Address [address] [place] [address] Care Team Providers Care Coal Hauler Name Role Phone Ben Grant MD Primary Care Provider [phone] Source Comments PLEASE NOTE, if this patient [...] 3 - 19 + 3-dose series) 2001 [id number] () 01/02/2024 Imm-Influenza (#1) 2024 Alcohol and [...] EDT) GLUCOSE 92 65 - 99 mg/dL [facility] Comment: ?Fasting reference interval UREA NITROGEN (BUN) 12 7 - 25 mg/dL [facility] CREATININE (blood) 1.10 0.60 - 1.29 mg/dL [facility] EGFR 86 > OR = 60 mL/min/1. 73m2 [facility] BUN/CREATININE RATIO SEE NOTE: [facility] Comment: ?? Not Reported: BUN and Creatinine are within ?? reference range. ? SODIUM 139 135 - 146 mmol/L [facility] POTASSIUM 4.1 3.5 - 5.3 mmol/L [facility] CHLORIDE 103 98 - 110 mmol/L [facility] CARBON DIOXIDE 30 20 - 32 mmol/L [facility] CALCIUM 9.3 8.6 - 10.3 mg/dL [facility] PROTEIN, TOTAL 7.2 6.1 - 8.1 g/dL [facility] ALBUMIN 4.3 3.6 - 5.1 g/dL [facility] GLOBULIN 2.9 1.9 - 3.7 g/dL (calc) [facility] ALBUMIN/GLOBULI N RATIO 1.5 1.0 - 2.5 (calc) [facility] BILIRUBIN, TOTAL 1.1 0.2 - 1.2 mg/dL [facility] ALKALINE PHOSPHATASE 75 36 - 130 U/L [facility] AST 27 10 - 40 U/L [facility] ALT 34 9 - 46 U/L [facility] Blood Blood / Unknown 11/26/2023 1 1:19 AM EDT 11/26/2023 11:19 AM EDT Ben Grant MD LAB - BLOOD DRAW Edited Result - Final Performing Organization Address City/[facility]/ZIP Co de Phone Number [facility] [employer] [facility] [address] [address], [employer] [address] [address] * (ABNORMAL) LIPIDS W RFLX TO DIRECT LDL (11/15/2023 10:25 AM EDT) CHOLESTEROL, TOTAL 200(H) <200 mg/dL [facility] HDL CHOLESTEROL 46 > OR = 40 mg/dL [facility] TRIGLYCERIDES 76 <150 mg/dL [facility] LDL-CHOLESTEROL 137(H) 99 mg/dL (calc) [facility] Comment: Reference range: <100 Desirable range <100 mg/dL for primary prevention; ?? <70 mg/dL for patients with CHD or diabetic patients with > or = 2 CHD risk factors. LDL-C is now calculated using the David-Cassandra calculation, which is a validated novel method providing better accuracy than the Friedewald equation in the estimation of LDL-C. David SS et al. SIL. 2013;310(19): 3210-9246 (http://education.[employer]/faq/BLS604) CHOL/HDLC RATIO 4.3 <5.0 (calc) [facility] NON-HDL CHOLESTEROL 154(H) <130 mg/dL (calc) [facility] Comment: For patients with diabetes plus 1 major ASCVD risk factor, treating to a non-HDL-C goal of <100 mg/dL (LDL-C of <70 mg/dL) is considered a therapeutic option. Blood Blood / Unknown 11/15/2023 1 0:25 AM EDT 11/15/2023 10:28 AM EDT Narrative [facility] [employer] [facility] - 11/16/2023 4:26 AM EDT FASTING:YES us Ben Grant MD LAB - BLOOD DRAW Edited Result - Final Performing Organization Address City/[facility]/ZIP Co de Phone Number [facility] [address] [address], [employer] [address] [address] * HEPATITIS C AB W/RFLX HCV RNA, QT, RT PCR (01/29/2021 9:21 AM EDT) Pathologist [facility] HEPATITIS C ANTIBODY NON-REACT RADHA NON-REACT RADHA [facility] SIGNAL TO CUT-OFF 0.01 <1.00 [facility] Comment: HCV antibody was non-reactive. There is no laboratory evidence of HCV infection. In most cases, no further action is required. However, if recent HCV exposure is suspected, a test for HCV RNA (test code 31933) is suggested. For additional information please refer to http://education.Venuemob/faq/FXM56r6 (This link is being provided for informational/ educational purposes only.) Blood Blood / Unknown 01/29/2021 9 :21 AM EDT 01/29/2021 9:21 AM EDT Narrative [facility] [employer] [facility] - 01/30/2021 12:19 AM EDT FASTING:YES Ben Grant MD LAB - BLOOD DRAW Edited Result - Final [facility] [address] [address], [employer] [address] [address] * HIV-1 & HIV-2 ANTIBODIES (11/18/2017 1:41 PM EDT) Pathologist [facility] HIV 1 AND 2 ANTIBODY SCREEN NEGATIVE NEGATIVE [facility] Comment: This assay is a 4th [...] EDT 11/18/2017 1:46 PM EDT Narrative [facility] - 11/18/2017 10:16 PM EDT [facility] [address] [place] [address] PT ID [id number] ORD# [id number] us Ben Grant MD LAB - BLOOD DRAW Final Result [facility] [address] [place] [address], from Last 3 Months or Most Recently Relevant to Health Maintenance Insurance [employer] [place] Member Subscriber Plan / Payer (Ef fective 2019-Present) Name:Chintan Moralez Relation to Subscriber:Self Name:Chintan Moralez Payer ID:[id number] Type:Indemnity Address: [address] [address] Care Teams Coal Hauler Relationship Specialty Start Date End Date Ben Grant MD [address] [place] [address] PCP - General Internal Medicine 07/21/17
== END 2024-08-28 08:50 | disposition home or self-care (01) ==
LOC: HO.XRAY 08:49
PROVIDERS: PCP Physician Assistant; Visit Provider Physician Assistant
DX: R13.10 Dysphagia, unspecified (principal); R07.89 Other chest pain; R79.89 Other specified abnormal findings of blood chemistry; I10 Essential (primary) hypertension
CPT/HCPCS: 71046

== ENCOUNTER → 2024-08-28 08:51 | Outpatient (BNV) | payer BC, SELFPAY | PROVIDERS: PCP Physician Assistant; Visit Provider Radiology Diagnostic Radiology | DX: R13.10 Dysphagia, unspecified (principal) | CPT/HCPCS: 71046 ==

== ENCOUNTER → 2024-09-15 10:59 | Outpatient (REF) | payer BC, SELFPAY ==
--- NOTE | 2024-09-15 11:01 | CA_ITS ---
Acquisition Time: 2024-09-15 11:05:20 Total Exercise Time: 00:09:36 Test Indications: ABN EKG Medications: SEE H&P Protocol: SHAHRIAR Max HR: 169 BPM 94% of Pred: 179 BPM Max BP: 182/64 mmHG Max Work Load: 11.0 METS Exercise stress test with exercise 9 mins 36 secs of Shahriar Protocol, achieving 94% MPHR, with reports of 2/10 left sided chest discomfort at baseline that got better to 1/10 with exercise. Pt reported mild SOB, one episode of split second sharp chest pain under the left breast with a deep breath during Stage 2 that resolved instantly. Without any arrythmias, with normotensive response to exercise. Without EKG changes meeting criteria for ischemia. In recovery, breathing returned to baseline and chest discomfort still at 1. Echo images obtained by tech at rest and post peak exercise. Definity contrast utilized. Test reviewed with Dr. Hargrove. Referred By: Zofia Lyon Electronically Signed By: Ousmane Arguelles
--- OUTSIDE RECORDS SUMMARY | 2024-09-15 11:29 | XMS_ITS | Clinical Summary ---
Author Organization [facility] Address [address] [place] [address] Phone Care Team Providers Care Home Theatre Technician Name Role Phone Zofia Lyon Primary Care Provider [phone] Allergies No known active allergies Medications methocarbamoL (ROBAXIN) 750 mg tablet Take 1 tablet (750 mg total) by mouth 4 (four) times a day for 10 days. 40 each 06/21/2024 Active Encounters Date Type Department Care Team Description 06/21/2024 7:35 AM EST - 06/21/2024 11:09 AM EST Emergency [facility] Emergency [address] [place] [address] Kyrie Villalpando DO Other chest [...] Signed Date: 06/21/2024 09:44 ET Workstation ID: [id number] Transcribed By: Self Edit Transcribed Date: 06/21/2024 [...] Signed Date: 06/21/2024 09:44 ET Workstation ID: [id number] Transcribed By: Self Edit Transcribed Date: 06/21/2024 09:35 ET us Kyrie Villalpando DO IMG CT PROCEDURES Final Result * Troponin I high sensitivity (06/21/2024 4:14 AM EST) Only the most recent of2 resultswithin the time period is included. Pathologist [facility] High Sensitivity Troponin I 8 <=79 ng/L LAB CHEMISTRY METHOD 06/21/2024 4:41 AM EST [facility] Blood Venous blood specimen / Unknown Venipuncture / Unknown 06/21/2024 4:14 AM EST 06/21/2024 4:17 AM EST Narrative [facility] - 06/21/2024 4:41 AM EST High levels of biotin in samples may falsely decrease hsTroponin values. ??Use caution when interpreting hsTroponin results in patients taking biotin who exhibit renal impairment (eGFR <60) or in patients taking more than 20 mg/day of biotin. us Kyrie Villalpando DO LAB BLOOD ORDERABLES Final Res ult [facility] [address] [place] [address], [place] [phone] * ECG 12 lead (06/21/2024 4:05 AM EST) Pathologist [facility] Ventricular Rate ECG 77 BPM GEMUSE Atrial Rate 77 BPM GEMUSE P-R Interval 182 ms GEMUSE QRS Duration 90 ms GEMUSE Q-T Interval 346 ms GEMUSE QTc 391 ms GEMUSE P Wave Fortson 53 degrees GEMUSE R Fortson 36 degrees GEMUSE T Fortson 45 degrees GEMUSE ECG Interpretation Normal sinus [...] Signed Date: 06/21/2024 09:06 ET Workstation ID: [id number] Transcribed By: Self Edit Transcribed Date: 06/21/2024 [...] Signed Date: 06/21/2024 09:06 ET Workstation ID: [id number] Transcribed By: Self Edit Transcribed Date: 06/21/2024 08:59 ET Kyrie Villalpando DO IMG XR PROCEDURES Final Result * (ABNORMAL) CBC auto differential (06/21/2024 2:40 AM EST) [facility] WBC 9.3 4.8 - 10.8 K/mcL LAB HEMETOLOGY METHOD 06/21/2024 2:49 AM [facility] RBC 4.20(L) 4.50 - 5.50 M/mcL LAB HEMETOLOGY METHOD 06/21/2024 2:49 AM [facility] Hemoglobin 13.3(L) 13.5 - 17.5 g/dL LAB HEMETOLOGY METHOD 06/21/2024 2:49 AM [facility] Hematocrit 41.1(L) 42.0 - 54.0 % LAB HEMETOLOGY METHOD 06/21/2024 2:49 AM [facility] MCV 97.2 79.0 - 98.0 FL LAB HEMETOLOGY METHOD 06/21/2024 2:49 AM [facility] MCH 31.4 27.0 - 32.0 pcg LAB HEMETOLOGY METHOD 06/21/2024 2:49 AM [facility] MCHC 32.4 32.0 - 37.0 g/dL LAB HEMETOLOGY METHOD 06/21/2024 2:49 AM [facility] RDW 11.9 11.0 - 15.0 % LAB HEMETOLOGY METHOD 06/21/2024 2:49 AM [facility] Platelets 239 130 - 400 K/mcL LAB HEMETOLOGY METHOD 06/21/2024 2:49 AM [facility] MPV 9.7 7.0 - 11.0 FL LAB HEMETOLOGY METHOD 06/21/2024 2:49 AM [facility] NRBC 0.0 <1.0 % LAB HEMETOLOGY METHOD 06/21/2024 2:49 AM [facility] NRBC Absolute 0.00 <0.10 K/mcL LAB HEMETOLOGY METHOD 06/21/2024 2:49 AM [facility] Neutrophils Relative 54.0 % LAB HEMETOLOGY METHOD 06/21/2024 2:49 AM [facility] Lymphocytes Relative 34.8 % LAB HEMETOLOGY METHOD 06/21/2024 2:49 AM [facility] Monocytes Relative 8.5 % LAB HEMETOLOGY METHOD 06/21/2024 2:49 AM [facility] Eosinophils Relative 1.4 % LAB HEMETOLOGY METHOD 06/21/2024 2:49 AM [facility] Basophils Relative 0.5 % LAB HEMETOLOGY METHOD 06/21/2024 2:49 AM [facility] Immature Granulocytes Relative 0.8 % LAB HEMETOLOGY METHOD 06/21/2024 2:49 AM [facility] Neutrophils Absolute 5.00 1.50 - 7.00 K/mcL LAB HEMETOLOGY METHOD 06/21/2024 2:49 AM [facility] Lymphocytes Absolute 3.22 1.00 - 5.00 K/mcL LAB HEMETOLOGY METHOD 06/21/2024 2:49 AM [facility] Monocytes Absolute 0.79 0.20 - 1.00 K/mcL LAB HEMETOLOGY METHOD 06/21/2024 2:49 AM [facility] Eosinophils Absolute 0.13 0.00 - 0.50 K/mcL LAB HEMETOLOGY METHOD 06/21/2024 2:49 AM [facility] Basophils Absolute 0.05 0.00 - 0.20 K/mcL LAB HEMETOLOGY METHOD 06/21/2024 2:49 AM [facility] Immature Granulocytes Absolute 0.07(H) 0.00 - 0.03 K/mcL LAB HEMETOLOGY METHOD 06/21/2024 2:49 AM [facility] Blood Venous blood specimen / Unknown Venipuncture / Unknown 06/21/2024 2:40 AM EST 06/21/2024 2:45 AM EST us Kyrie Villalpando DO LAB BLOOD ORDERABLES Final Res ult Performing Organization Address [facility]/ZIP Co de Phone Number [facility] [address] [place] [address], [place] [phone] * Magnesium (06/21/2024 2:40 AM EST) [facility] Magnesium 2.1 1.9 - 2.6 mg/dL LAB CHEMISTRY METHOD 06/21/2024 3:08 AM EST [facility] Blood Venous blood specimen / Unknown Venipuncture / Unknown 06/21/2024 2:40 AM EST 06/21/2024 2:45 AM EST us Kyrie Villalpando DO LAB BLOOD ORDERABLES Final Res ult Performing Organization Address [facility] Co de Phone Number [facility] [address] [place] [address], [place] [phone] * Lipase (06/21/2024 2:40 AM EST) [facility] Lipase 56 13 - 75 unit/L LAB CHEMISTRY METHOD 06/21/2024 3:08 AM EST [facility] Blood Venous blood specimen / Unknown Venipuncture / Unknown 06/21/2024 2:40 AM EST 06/21/2024 2:45 AM EST us Kyrie Villalpando DO LAB BLOOD ORDERABLES Final Res ult Performing Organization Address [facility]/ZIP Co de Phone Number [facility] [address] [place] [address], [place] [phone] * (ABNORMAL) Comprehensive metabolic panel (06/21/2024 2:40 AM EST) [facility] Sodium 138 133 - 145 mmol/L LAB CHEMISTRY METHOD 06/21/2024 3:08 AM [facility] Potassium 3.9 3.5 - 5.5 mmol/L LAB CHEMISTRY METHOD 06/21/2024 3:08 AM [facility] Chloride 105 96 - 110 mmol/L LAB CHEMISTRY METHOD 06/21/2024 3:08 AM [facility] CO2 30 21 - 32 mmol/L LAB CHEMISTRY METHOD 06/21/2024 3:08 AM [facility] Anion Gap 3 3 - 11 LAB CHEMISTRY METHOD 06/21/2024 3:08 AM [facility] Glucose 100 70 - 100 mg/dL LAB CHEMISTRY METHOD 06/21/2024 3:08 AM [facility] BUN 15 5 - 25 mg/dL LAB CHEMISTRY METHOD 06/21/2024 3:08 AM [facility] Creatinine 1.24 0.70 - 1.30 mg/dL LAB CHEMISTRY METHOD 06/21/2024 3:08 AM [facility] eGFR 75 >=60 mL/min/1. 73m2 LAB CHEMISTRY METHOD 06/21/2024 3:08 AM [facility] Comment:Calculation based on the??Chronic Kidney Disease Epidemiology Collaboration (CKD-EPI) equation refit??without adjustment for race. BUN/Creatinine Ratio 12.1 LAB CHEMISTRY METHOD 06/21/2024 3:08 AM [facility] Calcium 9.5 8.5 - 10.5 mg/dL LAB CHEMISTRY METHOD 06/21/2024 3:08 AM [facility] AST (SGOT) 50(H) 10 - 42 unit/L LAB CHEMISTRY METHOD 06/21/2024 3:08 AM [facility] ALT (SGPT) 77(H) 10 - 60 unit/L LAB CHEMISTRY METHOD 06/21/2024 3:08 AM [facility] Alkaline Phosphatase 82 42 - 121 unit/L LAB CHEMISTRY METHOD 06/21/2024 3:08 AM EST [facility] Total Protein 7.1 6.0 - 8.0 g/dL LAB CHEMISTRY METHOD 06/21/2024 3:08 AM EST [facility] Albumin 3.8 3.2 - 5.0 g/dL LAB CHEMISTRY METHOD 06/21/2024 3:08 AM EST [facility] Total Bilirubin 0.7 0.0 - 1.4 mg/dL LAB CHEMISTRY METHOD 06/21/2024 3:08 AM EST [facility] Blood Venous blood specimen / Unknown Venipuncture / Unknown 06/21/2024 2:40 AM EST 06/21/2024 2:45 AM EST us Kyrie Villalpando DO LAB BLOOD ORDERABLES Final Res ult [facility] [address] [place] [address], from Last 3 Months Insurance [facility] Care Teams Home Theatre Technician Relationship Specialty Start Date End Date Zofia Lyon PA [address] [place] [address] PCP - General Physician Cost Accounting Analyst 06/21/24
--- OUTSIDE RECORDS SUMMARY | 2024-09-15 11:29 | XMS_ITS | Clinical Summary ---
Author Organization [facility] Address [address] [place] [address] Care Team Providers Care Dry Kiln Burner Name Role Phone Ben Grant MD Primary Care Provider [phone] Source Comments PLEASE NOTE, if this patient [...] 3 - 19 + 3-dose series) 2001 [id number] () 01/02/2024 Imm-Influenza (#1) 2024 Alcohol and Drug Screen 05/03/2024 05/06/19 24, 12/14/2022, 05/23/2021, Additional history exists Depression Annual Screen 05/03/2024 05/06/2023, 08/01 Anxiety Screening 05/06/2024 05/06/2023 Lipid Screening 11/14/2024 11/15/2023, 08/01, 05/06/2023, Additional [...] EDT) GLUCOSE 92 65 - 99 mg/dL [facility] Comment: ?Fasting reference interval UREA NITROGEN (BUN) 12 7 - 25 mg/dL [facility] CREATININE (blood) 1.10 0.60 - 1.29 mg/dL [facility] EGFR 86 > OR = 60 mL/min/1. 73m2 [facility] BUN/CREATININE RATIO SEE NOTE: [facility] Comment: ?? Not Reported: BUN and Creatinine are within ?? reference range. ? SODIUM 139 135 - 146 mmol/L [facility] POTASSIUM 4.1 3.5 - 5.3 mmol/L [facility] CHLORIDE 103 98 - 110 mmol/L [facility] CARBON DIOXIDE 30 20 - 32 mmol/L [facility] CALCIUM 9.3 8.6 - 10.3 mg/dL [facility] PROTEIN, TOTAL 7.2 6.1 - 8.1 g/dL [facility] ALBUMIN 4.3 3.6 - 5.1 g/dL [facility] GLOBULIN 2.9 1.9 - 3.7 g/dL (calc) [facility] ALBUMIN/GLOBULI N RATIO 1.5 1.0 - 2.5 (calc) [facility] BILIRUBIN, TOTAL 1.1 0.2 - 1.2 mg/dL [facility] ALKALINE PHOSPHATASE 75 36 - 130 U/L [facility] AST 27 10 - 40 U/L [facility] ALT 34 9 - 46 U/L [facility] Blood Blood / Unknown 11/26/2023 1 1:19 AM EDT 11/26/2023 11:19 AM EDT Ben Grant MD LAB - BLOOD DRAW Edited Result - Final Performing Organization Address City/[facility]/ZIP Co de Phone Number [facility] [address] [address], [facility] [address] [place] [address] * (ABNORMAL) LIPIDS W RFLX TO DIRECT LDL (11/15/2023 10:25 AM EDT) CHOLESTEROL, TOTAL 200(H) <200 mg/dL [facility] HDL CHOLESTEROL 46 > OR = 40 mg/dL [facility] TRIGLYCERIDES 76 <150 mg/dL [facility] LDL-CHOLESTEROL 137(H) 99 mg/dL (calc) [facility] Comment: Reference range: <100 Desirable range <100 mg/dL for primary prevention; ?? <70 mg/dL for patients with CHD or diabetic patients with > or = 2 CHD risk factors. LDL-C is now calculated using the David-Cassandra calculation, which is a validated novel method providing better accuracy than the Friedewald equation in the estimation of LDL-C. David SS et al. SIL. 2013;310(19): 7874-8476 (http://education.[employer]/faq/AKY417) CHOL/HDLC RATIO 4.3 <5.0 (calc) [facility] NON-HDL CHOLESTEROL 154(H) <130 mg/dL (calc) [facility] Comment: For patients with diabetes plus 1 major ASCVD risk factor, treating to a non-HDL-C goal of <100 mg/dL (LDL-C of <70 mg/dL) is considered a therapeutic option. Blood Blood / Unknown 11/15/2023 1 0:25 AM EDT 11/15/2023 10:28 AM EDT Narrative [facility] - 11/16/2023 4:26 AM EDT FASTING:YES us Ben Grant MD LAB - BLOOD DRAW Edited Result - Final [facility] [address] [address], [facility] [address] [place] [address] * HEPATITIS C AB W/RFLX HCV RNA, QT, RT PCR (01/29/2021 9:21 AM EDT) HEPATITIS C ANTIBODY NON-REACT RADHA NON-REACT RADHA [facility] SIGNAL TO CUT-OFF 0.01 <1.00 [facility] Comment: HCV antibody was non-reactive. There is no laboratory evidence of HCV infection. In most cases, no further action is required. However, if recent HCV exposure is suspected, a test for HCV RNA (test code 09606) is suggested. For additional information please refer to http://education.[employer]/faq/IMP24i2 (This link is being provided for informational/ educational purposes only.) Blood Blood / Unknown 01/29/2021 9 :21 AM EDT 01/29/2021 9:21 AM EDT Narrative [facility] - 01/30/2021 12:19 AM EDT FASTING:YES Ben Grant MD LAB - BLOOD DRAW Edited Result - Final [facility] [address] [address], [facility] [address] [address] * HIV-1 & HIV-2 ANTIBODIES (11/18/2017 1:41 PM EDT) HIV 1 AND 2 ANTIBODY SCREEN NEGATIVE NEGATIVE [facility] Comment: This assay is a 4th [...] EDT 11/18/2017 1:46 PM EDT Narrative [facility] - 11/18/2017 10:16 PM EDT [facility] [address] [place] [address] PT ID [id number] ORD# [id number] us Ben Grant MD LAB - BLOOD DRAW Final Result [facility] [address] [place] [address], from Last 3 Months or Most Recently Relevant to Health Maintenance Insurance [employer] [facility] Member Subscriber Plan / Payer (Ef fective 2019-Present) Name:Chintan Moralez Relation to Subscriber:Self Name:Chintan Moralez Payer ID:[id number] Type:Indemnity Address: [address] [address] Care Teams Dry Kiln Burner Relationship Specialty Start Date End Date Ben Grant MD [address] [facility] [place] [address] PCP - General Internal Medicine 07/21/17
== END ==
LOC: HO.CARD 10:59
PROVIDERS: PCP Physician Assistant; Visit Provider Physician Assistant
DX: R07.89 Other chest pain (principal)
CPT/HCPCS: 93350; Q9957

== ENCOUNTER → 2024-09-15 11:01 | Outpatient (BNV) | payer BC, SELFPAY | PROVIDERS: PCP Physician Assistant | DX: R07.2 Precordial pain (principal); R06.02 Shortness of breath | CPT/HCPCS: 93016; 93018; 93350; 93352 ==

== ENCOUNTER 2024-09-20 10:31 | Outpatient (AMB) | payer BC, SELFPAY ==
--- NOTE | 2024-09-20 10:37 | A.OFFPC_ITS ---
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 Chief Of Staff Doctor Required: No Allergies No Known Allergies Allergy (Verified 09/20/24 10:37) Tobacco use date assessed: 09/20/24 Dental Screening Dental Screen Date: 09/20/24 Did you have a dental visit in the last 12 months?: Yes Did you have a dental problem in the last 6 months where you did not have access to dental care?: No Was dental information given to patient?: Patient has dentist HPI letter for work/lab work HPI Details The patient is a 43-year-old male presenting for a follow up of ongoing chest pain CV: He has a history of ongoing chest pain. He recently had a stress echo test which was overall reassuring. No change in symptoms. The chest pain has been persistent since approximately the year 1999, and although initially manageable, it has recently increased in severity. The pain is primarily located on the left side of the chest and exacerbates with certain physical movements, such as swinging the arms or twisting the upper body. The patient denies any significant improvement from muscle relaxants previously prescribed. This musculoskeletal chest pain has been persistent for nearly 25 years. He also recently had a negative chest CT BP today in the office is 116/76. He is on lisinopril/hydrochlorothiazide 10 /12.5 mg daily GI: At our last visit we did discuss the acid reflux. He states that it was significantly improved with the omeprazole but then it became ineffective and he was switched to Nexium which is somewhat effective. He did have A liver MRI which was consistent with a hemangioma of the liver. He had a barium swallow which I do not have the results of yet. He says that this is done in [place]. He was also referred to GI. [facility] Surgical History No pertinent past surgical history Social History (Updated 09/20/24 @ 10:41 by Mindy Colorado CMA) Housing: House Alcohol intake: former Patient Tobacco Use Status: Former Tobacco user Years Smoked: unknown. 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 Homar Arevalo, Rosa M Celaya, Kris Contreras and colleagues, with an educational homar from [employer]. Physical exam (Primary Care) Vital Signs: Last Vital Signs Pulse 82 09/20/24 10:38 Resp 14 09/20/24 10:38 BP 116/76 09/20/24 10:38 Pulse Ox 97 09/20/24 10:38 Oxygen Delivery Method Room Air 09/20/24 10:38 BMI result Body Mass Index 27.1 Tobacco/Smoking Status: Tobacco use Status Tobacco use date assessed 09/20/24 09/20/24 10:41 Patient Tobacco Use Status Former Tobacco user 09/20/24 10:41 e-Cigarette/Vaping Use Never Used 09/20/24 10:41 Thrive Assessment: Date of Thrive Assessment Date Thrive assessed 07/13/24 09/20/24 10:41 Const Orientation/consciousness: patient oriented x3 HENMT Ears: hearing grossly normal bilaterally Neck Thyroid: Thyroid normal Lymphatic: no lymphadenopathy noted Resp Auscultation: clear to auscultation bilaterally Cardio Rate: regular rate Rhythm: regular rhythm Heart sounds: S1 normal heart sound present and S2 normal heart sound present GI Inspection: Yes normal to inspection Palpation (GI): Soft to palpation and Other GI palpation findings present (nontender, no cva tenderness) Auscultation: normoactive bowel sounds Rectal Exam - Male: Yes deferred Skin General skin exam: no rashes or lesions noted Neuro General: patient oriented x3, gait normal and no focal motor deficits Results Reviewed Results Reviewed: Laboratory Tests 04/28/24 06/07/24 13:31 12:35 WBC 7.1 RBC 4.77 Hgb 15.0 Hct 45.4 Plt Count 235 Sodium 137 Potassium 4.5 Chloride 104 Carbon Dioxide 30 H Anion Gap 8 L BUN 11 Creatinine 1.10 Estimated GFR > 60 Random Glucose 99 GGT 53 H AST 41 H ALT 40 Alkaline Phosphatase 80 Troponin I High Sens < 2.7 Total Protein 7.8 Albumin 4.2 Triglycerides 95 Cholesterol 211 H LDL Cholesterol, Calc 150 H HDL Cholesterol 42 TSH 1.49 MR/MR abdomen wo/w con IMPRESSION: Findings consistent with a 1.4 x 1.0 cm hemangioma in the posterior segment of the right lobe of the liver corresponding to the larger lesion noted on abdominal ultrasound. The smaller lesion is too small to accurately characterize. Coding Level of Care Code Est Pt Level 4 (82875) Complex EM visit Add On G2211 Diagnoses Atypical chest pain R07.89 Elevated LFTs R79.89 HTN (hypertension) I10 GERD (gastroesophageal reflux disease) K21.9 Assessment & Plan Assessment & Plan (1) Atypical chest pain: Code(s): R07.89 - Other chest pain Category: Medical Plan: Has follow up arranged with Cardiology. Work note provided to return to work as he has been out of work until the stress echo was completed (2) Elevated LFTs: Code(s): R79.89 - Other specified abnormal findings of blood chemistry Category: Medical Plan: Recheck labs. Has referral to GI. (3) HTN (hypertension): Code(s): I10 - Essential (primary) hypertension Category: Medical Plan: WNL. Continue current regimen (4) GERD (gastroesophageal reflux disease): Code(s): K21.9 - Gastro-esophageal reflux disease without esophagitis Category: Medical Plan: As above. Orders: Orders Comprehensive Met. Panel Today I10 - Essential (primary) hypertension, K21.9 - Gastro-esophageal reflux disease without esophagitis, R79.89 - Other specified abnormal findings of blood chemistry Complete Blood Count Auto Diff Today I10 - Essential (primary) hypertension, K21.9 - Gastro-esophageal reflux disease without esophagitis, R79.89 - Other specified abnormal findings of blood chemistry TSH reflex Free T4 Today I10 - Essential (primary) hypertension, K21.9 - Gastro-esophageal reflux disease without esophagitis, R79.89 - Other specified abnormal findings of blood chemistry Referrals Gastroenterology Referral I10 - Essential (primary) hypertension, K21.9 - Gastro-esophageal reflux disease without esophagitis, R07.89 - Other chest pain, R79.89 - Other specified abnormal findings of blood chemistry
[2024-09-20 10:38] VITALS: BP 116/76; PULSE 82; RESP 14; O2SAT 97; BMI 27.1
--- OUTSIDE RECORDS SUMMARY | 2024-09-20 12:01 | XMS_ITS | Clinical Summary ---
Author Organization [facility] Address [address] [place] [address] Phone Care Team Providers Care Timekeeper Name Role Phone Zofia Lyon Primary Care Provider [phone] Allergies No known active allergies Medications methocarbamoL (ROBAXIN) 750 mg tablet Take 1 tablet (750 mg total) by mouth 4 (four) times a day for 10 days. 40 each 06/21/2024 Active Medical History Medical History Date Comments Hypertension [...] Influencers of Health Screening 04/05/2022 COVID-19 Vaccine (1 - 2023-25 season) 2024 Depression Screening 05/06/2024 05/06/2023 Influenza [...] Date/Time Associated Diagnosis Comments COMPREHENSIVE METABOLIC PANEL STAT 06/21/2024 2:40 AM EST from Last 3 Months or Most Recently Relevant to Health Maintenance Results * (ABNORMAL) Comprehensive metabolic panel (06/21/2024 2:40 AM EST) Sodium 138 133 - 145 mmol/L LAB [...] [facility] [address] [place] [address], from Last 3 Months or Most Recently Relevant to Health Maintenance Insurance [employer] Care Teams Timekeeper Relationship Specialty Start Date End Date Zofia Lyon PA [facility] [place] [place] [address] PCP - General Physician Financial Counselor 06/21/24
--- OUTSIDE RECORDS SUMMARY | 2024-09-20 12:01 | XMS_ITS | Clinical Summary ---
Author Organization [facility] Address [address] [place] [address] Care Team Providers Care Tile Burner Name Role Phone Ben Grant MD Primary Care Provider [phone] Source Comments PLEASE NOTE, if this patient [...] 3 - 19 + 3-dose series) 2001 [id number] () 01/02/2024 Imm-Influenza (#1) 2024 Alcohol and Drug Screen 05/03/2024 05/06/19 24, 12/14/2022, 05/23/2021, Additional history exists Depression Annual Screen 05/03/2024 05/06/2023, 08/01 Anxiety Screening 05/06/2024 05/06/2023 Lipid Screening 11/14/2024 11/15/2023, 08/01, 05/06/2023, Additional history exists Annual Wellness (Adult): Indicated (All Coverage) 11/25/2024 11/26/2023, 02/25/2022, 01/29/2021, Additional history exists Tobacco Screening [...] EDT) GLUCOSE 92 65 - 99 mg/dL [facility] Comment: ?Fasting reference interval UREA NITROGEN (BUN) 12 7 - 25 mg/dL [facility] CREATININE (blood) 1.10 0.60 - 1.29 mg/dL [facility] EGFR 86 > OR = 60 mL/min/1. 73m2 [facility] BUN/CREATININE RATIO SEE NOTE: [facility] Comment: ?? Not Reported: BUN and Creatinine are within ?? reference range. ? SODIUM 139 135 - 146 mmol/L [facility] POTASSIUM 4.1 3.5 - 5.3 mmol/L [facility] CHLORIDE 103 98 - 110 mmol/L [facility] CARBON DIOXIDE 30 20 - 32 mmol/L [facility] CALCIUM 9.3 8.6 - 10.3 mg/dL [facility] PROTEIN, TOTAL 7.2 6.1 - 8.1 g/dL [facility] ALBUMIN 4.3 3.6 - 5.1 g/dL [facility] GLOBULIN 2.9 1.9 - 3.7 g/dL (calc) [facility] ALBUMIN/GLOBULI N RATIO 1.5 1.0 - 2.5 (calc) [facility] BILIRUBIN, TOTAL 1.1 0.2 - 1.2 mg/dL [facility] ALKALINE PHOSPHATASE 75 36 - 130 U/L [facility] AST 27 10 - 40 U/L [facility] ALT 34 9 - 46 U/L [facility] Blood Blood / Unknown 11/26/2023 1 1:19 AM EDT 11/26/2023 11:19 AM EDT Ben Grant MD LAB - BLOOD DRAW Edited Result - Final [facility] [address] [address], [employer] [facility] [address] [place] [address] * (ABNORMAL) LIPIDS W RFLX TO DIRECT LDL (11/15/2023 10:25 AM EDT) CHOLESTEROL, TOTAL 200(H) <200 mg/dL [facility] [employer] [facility] HDL CHOLESTEROL 46 > OR = 40 mg/dL [employer] [facility] TRIGLYCERIDES 76 <150 mg/dL [facility] [employer] [facility] LDL-CHOLESTEROL 137(H) 99 mg/dL (calc) [facility] [employer] [facility] Comment: Reference range: <100 Desirable range <100 mg/dL for primary prevention; ?? <70 mg/dL for patients with CHD or diabetic patients with > or = 2 CHD risk factors. LDL-C is now calculated using the David-Cassandra calculation, which is a validated novel method providing better accuracy than the Friedewald equation in the estimation of LDL-C. David SS et al. SIL. 2013;310(19): 9857-9980 (http://education.VGBio/faq/OML035) CHOL/HDLC RATIO 4.3 <5.0 (calc) [employer] [facility] NON-HDL CHOLESTEROL 154(H) <130 mg/dL (calc) [facility] [facility] Comment: For patients with diabetes plus 1 major ASCVD risk factor, treating to a non-HDL-C goal of <100 mg/dL (LDL-C of <70 mg/dL) is considered a therapeutic option. Blood Blood / Unknown 11/15/2023 1 0:25 AM EDT 11/15/2023 10:28 AM EDT Narrative [facility] [employer] [facility] - 11/16/2023 4:26 AM EDT FASTING:YES us Ben Grant MD LAB - BLOOD DRAW Edited Result - Final Performing Organization Address City/[facility]/ZIP Co de Phone Number [employer] [address] [address], [employer] [address] [address] * HEPATITIS C AB W/RFLX HCV RNA, QT, RT PCR (01/29/2021 9:21 AM EDT) HEPATITIS C ANTIBODY NON-REACT RADHA NON-REACT RADHA [facility] SIGNAL TO CUT-OFF 0.01 <1.00 [facility] Comment: HCV antibody was non-reactive. There is no laboratory evidence of HCV infection. In most cases, no further action is required. However, if recent HCV exposure is suspected, a test for HCV RNA (test code 35751) is suggested. For additional information please refer to http://education.Encore Alert/faq/CLA68b4 (This link is being provided for informational/ educational purposes only.) Blood Blood / Unknown 01/29/2021 9 :21 AM EDT 01/29/2021 9:21 AM EDT Narrative [employer] [facility] - 01/30/2021 12:19 AM EDT FASTING:YES Ben Grant MD LAB - BLOOD DRAW Edited Result - Final Performing Organization Address [facility]/ZIP Co de Phone Number [employer] [facility] [address] [address], [employer] [address] [address] * HIV future (11/18/2017 1:41 PM EDT) Pathologist [facility] HIV 1 AND 2 ANTIBODY SCREEN NEGATIVE NEGATIVE [facility] Comment: This assay is a [...] EDT 11/18/2017 1:46 PM EDT Narrative [facility] - 11/18/2017 10:16 PM EDT [facility] [address] [place] [address] PT ID [id number] ORD# [id number] us Ben Grant MD LAB - BLOOD DRAW Final Result [facility] [address] [place] [address], from Last 3 Months or Most Recently Relevant to Health Maintenance Insurance [employer] [facility] Member Subscriber Plan / Payer (Ef fective 2019-Present) Name:Chintan Moralez Relation to Subscriber:Self Name:Chintan Moralez Payer ID:[id number] Type:Indemnity Address: [address] [address] Care Teams Tile Burner Relationship Specialty Start Date End Date Ben Grant MD [address] [place] [address] PCP - General Internal Medicine 07/21/17
== END 2024-09-20 11:14 | disposition home or self-care (01) ==
LOC: HO.HMCFM 10:31
PROVIDERS: PCP Physician Assistant; Visit Provider Physician Assistant
DX: R07.89 Other chest pain (principal); R79.89 Other specified abnormal findings of blood chemistry; I10 Essential (primary) hypertension; K21.9 Gastro-esophageal reflux disease without esophagitis

== ENCOUNTER → 2024-09-20 10:31 | Outpatient (BNVA) | payer BC, SELFPAY | PROVIDERS: PCP Physician Assistant; Visit Provider Physician Assistant | DX: Z13.89 Encounter for screening for other disorder (principal) ==

== ENCOUNTER 2024-09-20 11:22 | Outpatient (REF) | payer BC, SELFPAY ==
--- OUTSIDE RECORDS SUMMARY | 2024-09-20 12:41 | XMS_ITS | Clinical Summary ---
Author Organization [facility] Address [address] [place] [address] Phone Care Team Providers Care Wastewater Analyst Name Role Phone Zofia Lyon Primary Care Provider [phone] Allergies No known active allergies Medications methocarbamoL [...] ult [facility] [address] [place] [address], from Last 3 Months or Most Recently Relevant to Health Maintenance Insurance [facility] Care Teams Wastewater Analyst Relationship Specialty Start Date End Date Zofia Lyon PA [facility] [place] [address] PCP - General Physician Hot Baller 06/21/24
[2024-09-20 14:08] LABS: MANUAL DIFF FLAG NO
[2024-09-20 14:15] LABS: Basophils Absolute Auto 0.1 X10*3/uL (0.0-0.2); Basophils Percent Auto 0.6 % (0-2); Eosinophils Absolute Auto 0.1 X10*3/uL (0.0-0.4); Eosinophils Percent Auto 0.8 % (0-4); Hematocrit 42.4 % (42.0-52.0); Hemoglobin 14.2 g/dl (14.0-18.0); Imm Gran Abs Auto 0.03 X10*3/uL (0.00-0.03); Imm Gran Pct Auto 0.4 % (0.0-0.4); Lymphocytes Absolute Auto 1.9 X10*3/uL (1.2-4.9); Lymphocytes Percent Auto 23.7 % (20-40); Mean Corpuscular HGB Conc 33.5 g/dl (31.0-36.0); Mean Corpuscular Hemoglobin 32.3 pg (27.0-33.0); Mean Corpuscular Volume 96.6 fL (80.0-98.0); Mean Platelet Volume 10.5 fL (9.4-12.4); Monocytes Absolute Auto 0.6 X10*3/uL (0.1-1.2); Monocytes Percent Auto 7.7 % (2-11); Neutrophils Absolute Auto 5.3 x10*3/uL (2.0-8.3); Neutrophils Percent Auto 66.8 % (45-73); Platelet Count 237 X10*3/uL (160-400); Red Blood Count 4.39 X10*6/uL (4.60-5.80); Red Cell Distribution Width 11.8 % (11.0-16.0); White Blood Count 7.9 X10*3/uL (4.8-10.8)
[2024-09-20 15:14] LABS: Alanine Aminotransferase 39 U/L (0-40); Albumin Level 4.2 g/dL (3.5-5.0); Alkaline Phosphatase 78 U/L (39-117); Anion Gap 9 (12-20); Aspartate Amino Transferase 38 U/L (5-37); Bilirubin Total 0.7 mg/dL (0.0-1.0); Blood Urea Nitrogen 12 mg/dL (9-16); Carbon Dioxide 30 mmol/L (22-29); Chloride 105 mmol/L (96-108); Estimated Glomerular Filt Rate > 60; Glucose Random 94 mg/dL (60-115); Potassium 4.2 mmol/L (3.3-5.1); Sodium 140 mmol/L (135-145); Total Protein 7.3 g/dL (6.5-8.0)
[2024-09-20 15:21] LABS: TSH reflex Free T4 1.23 uIU/mL (0.32-4.0)
== END 2024-09-20 11:23 | disposition home or self-care (01) ==
LOC: HO.WFDLDS 11:22
PROVIDERS: Visit Provider Physician Assistant
DX: I10 Essential (primary) hypertension (principal); K21.9 Gastro-esophageal reflux disease without esophagitis; R79.89 Other specified abnormal findings of blood chemistry
CPT/HCPCS: 36415; 80053; 84443; 85025

== ENCOUNTER 2024-10-26 08:35 | Outpatient (AMB) | payer OTHER, SELFPAY ==
--- NOTE | 2024-10-26 08:56 | A.OFFPC_ITS ---
Vital Signs 10/26/24 08:58 Height 5 ft 8 in Weight 168 lb 4 oz BMI 25.6 BP 134/80 Blood Pressure Location Lt brachial Position Sitting Respiration 14 Pulse 75 Pulse Source Pulse Oximeter Pulse Oximetry (%) 98 Oxygen Delivery Method Room Air Intake Visit Reasons: bp Intake Note: Blood pressure follow up. Food Packer Required: No Allergies No Known Allergies Allergy (Verified 10/26/24 08:56) Medication List - Last Reconciled 10/26/24 by Zofia Lyon PA-C esomeprazole magnesium (Nexium) 40 mg PO DAILY esomeprazole magnesium (Nexium) 40 mg PO DAILY lisinopril-hydrochlorothiazide 10-12.5 mg 1 tab PO DAILY Tobacco use date assessed: 10/26/24 Dental Screening Dental Screen Date: 09/20/24 HPI bp HPI Details The patient is a 44-year-old male presenting for a follow up. CV: Blood pressure today in the office is 134/80. States that he is compliant with the lisinopril/hydrochlorothiazide 10/12.5 mg daily. He has a history of ongoing chest pain. He recently had a stress echo test which was overall reassuring. No change in symptoms. The chest pain has been persistent since approximately the year 1999, and although initially manageable, it has recently increased in severity. The pain is primarily located on the left side of the chest and exacerbates with certain physical movements, such as swinging the arms or twisting the upper body. The patient denies any significant improvement from muscle relaxants previously prescribed. This musculoskeletal chest pain has been persistent for nearly 25 years. He also recently had a negative chest CT. -he will be seeing Cardiology later this summer. Chest pains unchanged/even slightly improved. BP today in the office is 116/76. He is on lisinopril/hydrochlorothiazide 10/12.5 mg daily GI: At our last visit we did discuss the acid reflux. He has noticed significant improvement with the Nexium. He did have A liver MRI which was consistent with a hemangioma of the liver. He was also referred to GI. [facility] Surgical History No pertinent past surgical history Social History (Updated 10/26/24 @ 14:13 by Mindy [place] CMA) Housing: House Alcohol intake: former Patient Tobacco Use Status: Former Tobacco user Years Smoked: unknown. 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 Current occupational exposures/hazards: No Cognitive needs: No Hearing needs: No Vision needs: No Questionnaire Thrive Questionnaire Date Thrive assessed: 06/07/24 I am a: Patient What is your living situation today?: I have a steady place to live Within the past 12 months, did the food you bought not last and you didn't have the money to get more?: Often true Within the past 12 months, did you worry whether your food would run out before you got money to buy more?: Often true Do you have trouble paying for medicines?: I choose not to answer this question Do you have trouble getting transportation to medical appointments?: I choose not to answer this question Do you have trouble paying your heating and electricity bill?: I choose not to answer this question Do you have trouble taking care of your child, family member or friend?: I choose not to answer this question Do you have trouble with day-to-day activities such as bathing, preparing meals, shopping, managing finances, etc.?: I choose not to answer this question Are you currently unemployed and looking for a job?: I choose not to answer this question Are you interested in more education?: I choose not to answer this question Please select the resources that you would like help with: None Currently or been in a relationship where the following occur: I choose not to answer THRIVE Score: 2 AUDIT C Alcohol Use Questionnaire (AUDIT-C) 1. How often do you have a drink containing alcohol?: Monthly or less 2. How many drinks containing alcohol do you have on a typical day when you are drinking?: 1 or 2 3. How often do you have six or more drinks on one occasion?: Never Total Score: 1 ALAINA-7 AMB Questionnaire ALAINA-7 Date ALAINA - 7 assessed: 04/05/24 Source: Developed by Drs. Homar Arevalo, Rosa M eClaya, Kris Contreras and colleagues, with an educational homar from [employer]. Physical exam (Primary Care) Vital Signs: Last Vital Signs Pulse 75 10/26/24 08:58 Resp 14 10/26/24 08:58 BP 134/80 10/26/24 08:58 Pulse Ox 98 10/26/24 08:58 Oxygen Delivery Method Room Air 10/26/24 08:58 BMI result Body Mass Index 25.6 Tobacco/Smoking Status: Tobacco use Status Tobacco use date assessed 10/26/24 10/26/24 09:01 Patient Tobacco Use Status Former Tobacco user 10/26/24 14:13 e-Cigarette/Vaping Use Never Used 10/26/24 14:13 Thrive Assessment: Date of Thrive Assessment Date Thrive assessed 06/07/24 10/26/24 09:01 Currently or been in a relationship where the following occur: I choose not to answer Const Orientation/consciousness: patient oriented x3 HENMT Ears: hearing grossly normal bilaterally Neck Thyroid: Thyroid normal Lymphatic: no lymphadenopathy noted Resp Auscultation: clear to auscultation bilaterally Cardio Rate: regular rate Rhythm: regular rhythm Heart sounds: S1 normal heart sound present and S2 normal heart sound present GI Inspection: Yes normal to inspection Palpation (GI): Soft to palpation and Other GI palpation findings present (nontender, no cva tenderness) Auscultation: normoactive bowel sounds Rectal Exam - Male: Yes deferred Skin General skin exam: no rashes or lesions noted Neuro General: patient oriented x3, gait normal and no focal motor deficits Results Reviewed Results Reviewed: Laboratory Tests 09/20/24 11:24 WBC 7.9 RBC 4.39 L Hgb 14.2 Hct 42.4 Plt Count 237 Sodium 140 Potassium 4.2 Chloride 105 Carbon Dioxide 30 H Anion Gap 9 L BUN 12 Creatinine 1.09 Estimated GFR > 60 Random Glucose 94 AST 38 H ALT 39 Alkaline Phosphatase 78 TSH 1.23 Coding Level of Care Code Est Pt Level 4 (80163) Complex EM visit Add On G2211 Diagnoses HTN (hypertension) I10 GERD (gastroesophageal reflux disease) K21.9 Assessment & Plan Assessment & Plan (1) HTN (hypertension): Code(s): I10 - Essential (primary) hypertension Category: Medical Plan: Well-controlled. Continue current regimen (2) GERD (gastroesophageal reflux disease): Code(s): K21.9 - Gastro-esophageal reflux disease without esophagitis Category: Medical Plan: Continue Nexium. Continue follow up as scheduled with GI later this summer. Medications: Refilled esomeprazole magnesium (Nexium) 40 mg PO DAILY 90 caps 0RF lisinopril-hydrochlorothiazide 10-12.5 mg 1 tab PO DAILY 90 tabs 3RF
[2024-10-26 08:58] VITALS: BP 134/80; PULSE 75; RESP 14; O2SAT 98; BMI 25.6
--- OUTSIDE RECORDS SUMMARY | 2024-10-26 09:01 | XMS_ITS | Clinical Summary ---
Author Organization [facility] Address [address] [place] [address] Phone Care Team Providers Care Hull Builder Name Role Phone Zofia Lyon Primary Care Provider [phone] Allergies No known active allergies Medications methocarbamoL [...] 71 06/21/2024 8:16 AM EST Temperature 36.6 C (97.9 F) 06/21/2024 8:16 AM EST Respiratory Rate 16 06/21/2024 6:22 AM EST [...] Health Screening 04/05/2022 COVID-19 Vaccine (1 - season) 2024 Depression Screening 05/06/2024 05/06/2023 [...] mmol/L LAB CHEMISTRY METHOD 06/21/2024 3:[address] [facility] Potassium 3.9 3.5 - 5.5 mmol/L LAB CHEMISTRY METHOD 06/21/2024 3:[address] [facility] Chloride 105 96 - 110 mmol/L LAB CHEMISTRY METHOD 06/21/2024 3:[address] [facility] CO2 30 21 - 32 mmol/L LAB CHEMISTRY METHOD 06/21/2024 3:[address] [facility] Anion Gap 3 3 - 11 LAB CHEMISTRY METHOD 06/21/2024 3:[address] [facility] Glucose 100 70 - 100 mg/dL LAB CHEMISTRY METHOD 06/21/2024 3:[address] [facility] BUN 15 5 - 25 mg/dL LAB CHEMISTRY METHOD 06/21/2024 3:[address] [facility] Creatinine 1.24 0.70 - 1.30 mg/dL LAB CHEMISTRY METHOD 06/21/2024 3:[address] [facility] eGFR 75 >=60 mL/min/1. 73m2 LAB CHEMISTRY METHOD 06/21/2024 3:[address] [facility] Comment:Calculation based on the Chronic Kidney Disease Epidemiology Collaboration (CKD-EPI) equation refit without adjustment for race. BUN/Creatinine Ratio 12.1 LAB CHEMISTRY METHOD 06/21/2024 3:[address] [facility] Calcium 9.5 8.5 - 10.5 mg/dL LAB CHEMISTRY METHOD 06/21/2024 3:[address] [facility] AST (SGOT) 50(H) 10 - 42 unit/L LAB CHEMISTRY METHOD 06/21/2024 3:[address] [facility] ALT (SGPT) 77(H) 10 - 60 unit/L LAB CHEMISTRY METHOD 06/21/2024 3:[address] [facility] Alkaline Phosphatase 82 42 - 121 unit/L LAB CHEMISTRY METHOD 06/21/2024 3:[address] [facility] Total Protein 7.1 6.0 - 8.0 g/dL LAB CHEMISTRY METHOD 06/21/2024 3:08 AM EST [facility] Albumin 3.8 3.2 - 5.0 g/dL LAB CHEMISTRY METHOD 06/21/2024 3:08 AM EST [facility] Total Bilirubin 0.7 0.0 - 1.4 mg/dL LAB CHEMISTRY METHOD 06/21/2024 3:08 AM EST [facility] Blood Venous blood specimen / Unknown Venipuncture / Unknown 06/21/2024 2:40 AM EST 06/21/2024 2:45 AM EST us Kyrie Villalpando DO LAB BLOOD ORDERABLES Final Res ult [facility] [address] [place] [address], from Last 3 Months or Most Recently Relevant to Health Maintenance Insurance [facility] Care Teams Hull Builder Relationship Specialty Start Date End Date Zofia Lyon PA [address] [place] [address] PCP - General Physician Hairspring Ii Inspector 06/21/24
== END 2024-10-26 09:20 | disposition home or self-care (01) ==
LOC: HO.HMCFM 08:36
PROVIDERS: Visit Provider Physician Assistant
DX: I10 Essential (primary) hypertension (principal); K21.9 Gastro-esophageal reflux disease without esophagitis

== ENCOUNTER → 2024-10-26 08:35 | Outpatient (BNVA) | payer OTHER, SELFPAY | PROVIDERS: Visit Provider Physician Assistant | DX: Z13.89 Encounter for screening for other disorder (principal) ==

== ENCOUNTER 2025-01-03 09:58 | Outpatient (AMB) | payer OTHER, SELFPAY ==
--- NOTE | 2025-01-03 10:02 | MHC.PC.OV ---
Vital Signs 01/03/25 10:03 Height 5 ft 8 in Weight 171 lb 4 oz BMI 26.0 BP 116/72 Blood Pressure Location Rt brachial Position Sitting Respiration 12 Pulse 85 Pulse Source Pulse Oximeter Pulse Oximetry (%) 98 Oxygen Delivery Method Room Air Intake Visit Reasons: labs f/u Intake Note: Follow up. Assessment Specialist Required: No Allergies No Known Allergies Allergy (Verified 01/03/25 10:03) Tobacco use date assessed: 01/03/25 Dental Screening Dental Screen Date: 09/20/24 HPI labs f/u HPI Details The patient is a 44-year-old male presenting for a follow up. CV: Blood pressure today in the office is 116/72.. States that he is compliant with the lisinopril/hydrochlorothiazide 10/12.5 mg daily. He was supposed to see Cardiology for a follow up on 12/25 but unfortunately, missed this appointment. He also missed his appointment with this customer support coordinator on 12/20. He has a history of ongoing chest pain. He recently had a stress echo test which was overall reassuring. No change in symptoms. The chest pain has been persistent since approximately the year 1999, and although initially manageable, it has recently increased in severity. The pain is primarily located on the left side of the chest and exacerbates with certain physical movements, such as swinging the arms or twisting the upper body. The patient denies any significant improvement from muscle relaxants previously prescribed. This musculoskeletal chest pain has been persistent for nearly 25 years. He also recently had a negative chest CT. -he will be seeing Cardiology later this summer. Chest pains unchanged/even slightly improved. GI: At our last visit we did discuss the acid reflux. He has noticed significant improvement with the omeprazole. He did have A liver MRI which was consistent with a hemangioma of the liver. He was also referred to GI. [facility] Surgical History No pertinent past surgical history Social History (Updated 10/26/24 @ 14:13 by Mindy [place] CMA) Housing: House Alcohol intake: former Patient Tobacco Use Status: Former Tobacco user Years Smoked: unknown. 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 Homar Arevalo, Rosa M Celaya, Kris Contreras and colleagues, with an educational homar from [employer]. Physical exam (Primary Care) Vital Signs: Last Vital Signs Pulse 85 01/03/25 10:03 Resp 12 01/03/25 10:03 BP 116/72 01/03/25 10:03 Pulse Ox 98 01/03/25 10:03 Oxygen Delivery Method Room Air 01/03/25 10:03 BMI result Body Mass Index 26.0 Tobacco/Smoking Status: Tobacco use Status Tobacco use date assessed 01/03/25 01/03/25 10:06 Patient Tobacco Use Status Former Tobacco user 01/03/25 10:06 e-Cigarette/Vaping Use Never Used 01/03/25 10:06 Thrive Assessment: Date of Thrive Assessment Date Thrive assessed 06/07/24 01/03/25 10:06 Const Orientation/consciousness: patient oriented x3 HENMT Ears: hearing grossly normal bilaterally Neck Thyroid: Thyroid normal Lymphatic: no lymphadenopathy noted Resp Auscultation: clear to auscultation bilaterally Cardio Rate: regular rate Rhythm: regular rhythm Heart sounds: S1 normal heart sound present and S2 normal heart sound present GI Inspection: Yes normal to inspection Palpation (GI): Soft to palpation and Other GI palpation findings present (nontender, no cva tenderness) Auscultation: normoactive bowel sounds Rectal Exam - Male: Yes deferred Skin General skin exam: no rashes or lesions noted Neuro General: patient oriented x3, gait normal and no focal motor deficits Coding Level of Care Code Est Pt Level 4 (39044) Complex EM visit Add On G2211 Diagnoses HTN (hypertension) I10 Elevated LFTs R79.89 Dyslipidemia E78.5 Assessment & Plan Assessment & Plan (1) HTN (hypertension): Code(s): I10 - Essential (primary) hypertension Category: Medical Plan: Continue current regimen (2) Elevated LFTs: Code(s): R79.89 - Other specified abnormal findings of blood chemistry Category: Medical Plan: We will monitor and recheck Advised to follow with GI. Phone numbers provided to both. (3) Dyslipidemia: Code(s): E78.5 - Hyperlipidemia, unspecified Category: Medical Plan: We will check lipids. Orders: Orders Complete Blood Count Auto Diff 01/03/25 E78.5 - Hyperlipidemia, unspecified, I10 - Essential (primary) hypertension, R79.89 - Other specified abnormal findings of blood chemistry Comprehensive Met. Panel 01/03/25 E78.5 - Hyperlipidemia, unspecified, I10 - Essential (primary) hypertension, R79.89 - Other specified abnormal findings of blood chemistry Lipid Panel 01/03/25 E78.5 - Hyperlipidemia, unspecified, I10 - Essential (primary) hypertension, R79.89 - Other specified abnormal findings of blood chemistry Patient Instructions: cardiology- [phone] [id number]
[2025-01-03 10:03] VITALS: BP 116/72; PULSE 85; RESP 12; O2SAT 98; BMI 26.0
--- OUTSIDE RECORDS SUMMARY | 2025-01-03 11:29 | XMS_ITS | Clinical Summary ---
Author Organization [facility] Address [address] [place] [address] Phone Care Team Providers Care Almond Cutting Machine Tender Name Role Phone Zofia Lyon Primary Care Provider [phone] Allergies No known active allergies Medications methocarbamoL [...] 2001 Social Influencers of Health Screening 04/05/2022 Depression Screening 05/03/2024 COVID-19 Vaccine (1 - 2023- season) 2025 Influenza Vaccine (#1) 2025 Hypertension/CHF/CAD Annual BMP Blood Test 06/21/2025 [...] 5 Years) and At-Risk Patients (6 to 49 Years) Aged Out No longer eligible based [...] mmol/L LAB CHEMISTRY METHOD 06/21/2024 3:08 AM [facility] Potassium 3.9 3.5 - 5.5 mmol/L LAB CHEMISTRY METHOD 06/21/2024 3:08 AM [facility] Chloride 105 96 - 110 mmol/L LAB CHEMISTRY METHOD 06/21/2024 3:08 AM [facility] CO2 30 21 - 32 mmol/L LAB CHEMISTRY METHOD 06/21/2024 3:08 AM [facility] Anion Gap 3 3 - 11 LAB CHEMISTRY METHOD 06/21/2024 3:08 AM [facility] Glucose 100 70 - 100 mg/dL LAB CHEMISTRY METHOD 06/21/2024 3:08 AM [facility] BUN 15 5 - 25 mg/dL LAB CHEMISTRY METHOD 06/21/2024 3:08 AM [facility] Creatinine 1.24 0.70 - 1.30 mg/dL LAB CHEMISTRY METHOD 06/21/2024 3:08 AM [facility] eGFR 75 >=60 mL/min/1. 73m2 LAB CHEMISTRY METHOD 06/21/2024 3:08 AM [facility] Comment:Calculation based on the Chronic Kidney Disease Epidemiology Collaboration (CKD-EPI) equation refit without adjustment for race. BUN/Creatinine Ratio 12.1 LAB CHEMISTRY METHOD 06/21/2024 3:08 AM [facility] Calcium 9.5 8.5 - 10.5 mg/dL LAB CHEMISTRY METHOD 06/21/2024 3:08 AM [facility] AST (SGOT) 50(H) 10 - 42 unit/L LAB CHEMISTRY METHOD 06/21/2024 3:08 AM [facility] ALT (SGPT) 77(H) 10 - 60 unit/L LAB CHEMISTRY METHOD 06/21/2024 3:08 AM [facility] Alkaline Phosphatase 82 42 - 121 unit/L LAB CHEMISTRY METHOD 06/21/2024 3:08 AM [facility] Total Protein 7.1 6.0 - 8.0 g/dL LAB CHEMISTRY METHOD 06/21/2024 3:08 AM EST [facility] Albumin 3.8 3.2 - 5.0 g/dL LAB CHEMISTRY METHOD 06/21/2024 3:08 AM EST [facility] Total Bilirubin 0.7 0.0 - 1.4 mg/dL LAB CHEMISTRY METHOD 06/21/2024 3:08 AM EST [facility] Blood Venous blood specimen / Unknown Venipuncture / Unknown 06/21/2024 2:40 AM EST 06/21/2024 2:45 AM EST us Kyrie Villalpando DO LAB BLOOD ORDERABLES Final Res ult [facility] [address] [place] [address], from Last 3 Months or Most Recently Relevant to Health Maintenance Insurance [facility] Care Teams Almond Cutting Machine Tender Relationship Specialty Start Date End Date Zofia Lyon PA Formerly named [facility] [place] [address] PCP - General Physician Adjunct Faculty Mathematics Department 06/21/24
== END 2025-01-03 10:25 | disposition home or self-care (01) ==
LOC: HO.HMCFM 09:58
PROVIDERS: Visit Provider Physician Assistant
DX: I10 Essential (primary) hypertension (principal); R79.89 Other specified abnormal findings of blood chemistry; E78.5 Hyperlipidemia, unspecified

== ENCOUNTER 2025-04-03 10:08 | Outpatient (AMB) | payer OTHER, SELFPAY ==
--- NOTE | 2025-04-03 10:11 | MHC.OFFVIS ---
Vital Signs 04/03/25 10:12 Height 5 ft 8 in Weight 173 lb BMI 26.3 Blood Pressure Location Lt brachial Position Sitting Pulse Oximetry (%) 98 Oxygen Delivery Method Room Air Intake Visit Reasons: Gastroesophageal reflux disease (GERD) Intake Note: Patient new consult for GERD. Patient cc: acid reflux with burning sensation and esophagus discomfort. 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 Referred by PCP for further evaluation elevated LFTs and acid reflux. Pt reports long-standing, intermittent heartburn and burning chest pain, with occasional regurgitation and infrequent, mild dysphagia. Sx unchanged in frequency over several yrs, but burning sensation more pronounced recently. Previously trialed esomeprazole with modest improvement; stopped 1-2 mos ago when Rx ran out. No N/V, hematochezia, or significant weight change; weight stable in 170s lbs. Daily BM, occasional mild abd pain/gas that resolves spontaneously. No recent hospitalizations, ER/urgent care visits, or acute flares. Reports efforts to avoid late-night eating and processed foods. Admits to difficulty with pill adherence and hydration. Swallow study ordered by PCP (); pt reports completed at [facility]. Also reports completion of EGD 01/29/2025. Results not yet available. Patient denies: fever/chills, n/v, appetite changes, unintentional wt loss, ab pain or melena/hematochezia. Social hx: -ETOH use 1-2 glasses of wine couple X/month -denies recreational drug use -former smoker, cessation 20+ years ago - family hx as below -denies personal hx of CA -denies significant cardiopulmonary history PFSH Surgical History No pertinent past surgical history Social History Housing: House Alcohol intake: former Patient Tobacco Use Status: Former Tobacco user Years Smoked: unknown. 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 Current occupational exposures/hazards: No Cognitive needs: No Hearing needs: No Vision needs: No Review of Systems Const Reports as per [facility] ENT Reports as per HPI Card Reports as per HPI Resp Reports as per HPI GI Reports as per [facility] Reports as per HPI Physical Exam Vital Signs: Last Vital Signs Pulse Ox 98 04/03/25 10:12 Oxygen Delivery Method Room Air 04/03/25 10:12 BMI result Body Mass Index 26.3 Const General: healthy appearing, no acute distress and well developed Nutritional Appearance: average body habitus Orientation/consciousness: patient oriented x3 HEENT Head: Yes normal to inspection, Yes normocephalic and Yes atraumatic Face and sinus: Yes normal facial exam Eyes General: appearance normal, both eyes and all related structures Neck Neck: Yes normal visual inspection Resp Effort & Inspection: normal respiratory effort, able to speak in complete sentences, no tracheal deviation and symmetric chest movement Cardio Jugular venous distension: no JVD GI Inspection: Yes normal to inspection and No distended Palpation (GI): Soft to palpation, not firm, nontender and No hepatosplenomegaly present Auscultation: normal bowel sounds Neuro General: patient oriented x3 Gait exam (Neuro): Normal gait present Psych Appearance: grossly normal Mental Status: mental status grossly normal Speech and movement: Normal speech and movement present Affect: normal affect Attitude: cooperative Thought process: Normal thought process present Thought content: Normal thought content present Insight: Good insight present (Psych) Judgement: Good judgement present (Psych) Results Reviewed Results Reviewed: Date of Service: 07/08/24 Procedure(s): MR abdomen wo/w con Accession Number(s): [id number] cc: Zofia Lyon~ EXAMINATION: MRI Abdomen without and with contrast HISTORY: K76.9 - Liver disease, unspecified COMPARISON: Correlation is made with an abdominal ultrasound dated 06/16/2024. TECHNIQUE: Axial in and out of phase T1-weighted gradient echo, axial diffusion weighted, and axial and coronal HASTE T2 with fat saturation images were obtained through the abdomen. Subsequently, fat suppressed axial and coronal T1-weighted images were obtained after the intravenous administration of 7.5 mL Gadavist. FINDINGS: There is no significant signal loss within the liver on opposed phase imaging to suggest steatosis. There is a 1.4 x 1.0 cm T2 hyperintense mass in the posterior segment of the right lobe, which demonstrates peripheral nodular enhancement with fill-in over time, consistent with a hemangioma. A tiny subcentimeter hypointense focus is noted more centrally in the right lobe, which is not definitely identified on T2-weighted images, likely due to patient motion. This lesion is too small to accurately characterize. No additional liver mass is seen. The hepatic and portal veins are patent. There is no intra or extrahepatic biliary ductal dilatation. The gallbladder, spleen, pancreas, adrenals, and kidneys are unremarkable. No retroperitoneal lymphadenopathy or ascites is identified in the upper abdomen. The visualized bones demonstrate normal signal intensity. MR/MR abdomen wo/w con IMPRESSION: Findings consistent with a 1.4 x 1.0 cm hemangioma in the posterior segment of the right lobe of the liver corresponding to the larger lesion noted on abdominal ultrasound. The smaller lesion is too small to accurately characterize. Date of Service: 06/16/24 Procedure(s): US abdomen complete Accession Number(s): [id number] cc: Zofia Lyon~ CLINICAL HISTORY: K21.9 - Gastro-esophageal reflux disease without esophagitis US abdomen complete Comparison: None Findings: The visualized pancreas is normal. The aorta and inferior vena cava are normal caliber. The appearance of the liver suggests fatty infiltration. There are circumscribed hyperechoic masses measuring 1.3 x 1.1 x 1.1 cm and 0.4 x 0.4 x 0.4 cm, possible hemangiomata. There is no intrahepatic bile duct dilatation. The common duct is 2.0 mm in diameter. The gallbladder is normal. There is no sonographic Evans sign. The main portal vein is antegrade. The right kidney is 10.0 cm in length. The left kidney is 10.4 cm in length. The spleen is normal. No ascites. IMPRESSION: 1. Hepatic steatosis with hepatic lesions, possible hemangiomas. Recommend dedicated hepatic imaging with either MRI or CT if patient can safely receive intravenous contrast, to further characterize. This document has been electronically signed by: Robert Collier MD on 06/17/2024 08:36:54 Date of Service: 09/15/24 Procedure(s): CA echo stress exercise w con Accession Number(s): [id number] cc: Zofia Lyon~ ADDENDUM Acquisition Time: 2024-09-15 11:05:20 Total Exercise Time: 00:09:36 Test Indications: ABN EKG Medications: SEE H&P Protocol: TEE Max HR: 169 BPM 94% of Pred: 179 BPM Max BP: 182/64 mmHG Max Work Load: 11.0 METS Exercise stress test with exercise 9 mins 36 secs of Tee Protocol, achieving 94% MPHR, with reports of 2/10 left sided chest discomfort at baseline that got better to 1/10 with exercise. Pt reported mild SOB, one episode of split second sharp chest pain under the left breast with a deep breath during Stage 2 that resolved instantly. Without any arrythmias, with normotensive response to exercise. Without EKG changes meeting criteria for ischemia. In recovery, breathing returned to baseline and chest discomfort still at 1. Echo images obtained by [employer] at rest and post peak exercise. Definity contrast utilized. Test reviewed with Dr. Nicholson. STRESS ECHO: Tecnique: Images obtained at rest and immediately post exercise within 1 minute. Definity contrast was used to enhance endocardial definition. Images were obtaines in multiple views and compared side to side. Findings : images at rest were of good quality. LV systolic function is normal with normal wall motion. LV diastolic function suggest grade I diastolic dysfunction. Post exercise images are of good quality. There is excellent augmentation of overall LV systolic function with no regional wall motion abnormalities. LV diastolic function is unchaged. Coclusion: Stress echo is negative for ischemia or LV diastolic dysfunction at achieved workload. Referred By: Zofia Lyon Electronically Signed By: PIPPA NICHOLSON MD Assessment & Plan Assessment & Plan (1) GERD (gastroesophageal reflux disease): Code(s): K21.9 - Gastro-esophageal reflux disease without esophagitis Category: Medical Qualifiers: Esophagitis presence: esophagitis presence not specified Qualified Code(s): K21.9 - Gastro-esophageal reflux disease without esophagitis Plan: Sx stable to mild worsening; intermittent burning, regurgitation. Partial response to prior PPI. lifestyle measures ongoing. Additional testing: - Obtain swallow study and recent upper endoscopy results to r/o structural lesions or significant motility disorder. Medications: - Restart esomeprazole 40 mg PO qd (Rx sent), monitor for improvement. - Duration: 8 wks, then reassess; monitor for SE (ZAMUDIO, diarrhea, hypomagnesemia). Lifestyle Recommendations: - Reinforce avoidance of late meals, acidic/spicy/fried/fatty foods, carbonation, caffeine. - Encourage upright posture after meals, avoid overeating. - Promote adequate hydration; provided GERD dietary modification handout. Referrals / Coordination of Care: - Retrieve outside swallow study and endoscopy results via PCP and [facility]. Follow-Up Plan: - Return in 8 wks for reassessment; review labs and outside studies. - Track sx diary (frequency/severity of burning/regurgitation/dysphagia). (2) Elevated LFTs: Code(s): R79.89 - Other specified abnormal findings of blood chemistry Category: Medical Plan: Stable, mild enzyme elevation, imaging consistent with hepatic steatosis; benign hemangioma identified, no f/u required. 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 Additional testing: - Repeat fasting LFTs (ALT, AST, ALP, GGT) prior to next visit, assess response to modifications. Medications: - No specific pharmacotherapy; continue HCTZ/lisinopril for BP. Lifestyle Recommendations: - Advise reduction of alcohol intake (<=-2 glasses wine/month). - Increase activity; reinforce whole foods, minimize packaged/processed snacks. - Minimize high-fat and fried foods; encourage weight management. - Provided NAFLD dietary/lifestyle guidance handout. Referrals / Coordination of Care: - PCP to continue annual monitoring post-reassessment if stable. Follow-Up Plan: - Repeat fasting LFTs prior to 8 wk f/u; review for significant changes. Plan Follow-up 8 weeks or sooner as needed Time: I spent a total of 35 minutes on the date of encounter which includes: Preparing to see the patient (reviewed previous documentation, test results and medical history) Performing a medically appropriate exam and/or evaluation Ordering medications, tests, and procedures Documenting clinical information in the health record Orders: Orders Comprehensive [place]. Panel Fast Today R79.89 - Other specified abnormal findings of blood chemistry Medications: New esomeprazole magnesium take one tablet at daily. Best taken on empty stomach, waiting 30 minutes before 40 mg PO DAILY 90 caps 0RF 56 days Coding Level of Care Code New Pt New Pt Level 4 (66092) Patient Type New Diagnoses Gastroesophageal reflux disease, unspecified whether esophagitis present K21.9 Esophagitis presence: esophagitis presence not specified Elevated LFTs R79.89
[2025-04-03 10:12] VITALS: O2SAT 98; BMI 26.3
--- OUTSIDE RECORDS SUMMARY | 2025-04-03 11:32 | XMS_ITS | Clinical Summary ---
Author Organization [facility] Address [address] [place] [address] Phone Care Team Providers Care School Director Name Role Phone Zofia Lyon Primary Care Provider [phone] Allergies No known active allergies Medications methocarbamoL [...] of 3 - 19+ 3-dose series) 2001 HPV Vaccines (1 - 3-dose SCDM series) 2009 Social Influencers of Health Screening 04/05/2022 Depression Screening 05/03/2024 COVID-19 Vaccine ( - 2024- season) 2025 Influenza Vaccine (#1) 2025 Hypertension/CHF/CAD Annual BMP Blood Test 06/21/2025 06/21/2024, 11/26/2023 Cholesterol Screening (Lipid Panel) 11/14/2028 11/15/2023, 12/05/2021, 01/29/2021, Additional history exists RSV Immunization Adult Patients (1 - 1-dose 75+ series) 2057 HIV Screening Completed 11/18/2017 Hepatitis C Screening [...] [facility] Comment:Calculation based on the Chronic [...] LAB CHEMISTRY METHOD 06/21/2024 3:08 AM EST [facility] Total Protein 7.1 6.0 - 8.0 g/dL LAB CHEMISTRY METHOD 06/21/2024 3:08 AM EST [facility] Albumin 3.8 3.2 - 5.0 g/dL LAB CHEMISTRY METHOD 06/21/2024 3:08 AM EST [facility] Total Bilirubin 0.7 0.0 - 1.4 mg/dL LAB CHEMISTRY METHOD 06/21/2024 3:08 AM EST [facility] Blood Venous blood specimen / Unknown Venipuncture / Unknown 06/21/2024 2:40 AM EST 06/21/2024 2:45 AM EST us Kyrie Villalpando DO LAB BLOOD ORDERABLES Final Res ult [facility] [address] [place] [address], from Last 3 Months or Most Recently Relevant to Health Maintenance Insurance [facility] Care Teams School Director Relationship Specialty Start Date End Date Zofia Lyon PA [address] [place] [address] PCP - General Physician Asset Availability Leader 06/21/24
== END 2025-04-03 11:00 | disposition home or self-care (01) ==
LOC: HO.HGI 10:09
PROVIDERS: PCP Physician Assistant; Visit Provider Nurse Practitioner Family
DX: K21.9 Gastro-esophageal reflux disease without esophagitis (principal); R79.89 Other specified abnormal findings of blood chemistry
CPT/HCPCS: 99204